=== PATIENT | female | born 1970 | race Caucasian/White ===

== ENCOUNTER 2020-06-03 06:09 | Inpatient (IN) | payer OTHER, SELFPAY ==
[2020-06-03] VITALS (7 sets, daily range): BP systolic 111–158; BP diastolic 67–105; PULSE 82–102; RESP 16–25; TEMP 36.1–36.6; O2SAT 90–94; BMI 58.1
--- NOTE | ~2020-06-03 | XR_ITS ---
EXAMINATION: XR chest 1V portable DATE: 06/04/2020 12:19 INDICATION: Hypoxia. TECHNIQUE: A single frontal view of the chest was obtained. COMPARISON: Chest 2 views 07/15/2018, CT abdomen and pelvis 06/03/2020 FINDINGS: There is mild atelectasis in the lower lung zones. No pleural effusion or pneumothorax. Car diomegaly is noted. IMPRESSION: 1. Mild atelectasis in the lower lung zones. 2. Cardiomegaly. Reviewed, dictated and finalized at location A. UME DIRECTOR
--- NOTE | ~2020-06-03 | US_ITS ---
EXAMINATION: US pelvic complete w TV DATE: 06/05/2020 16:12 INDICATION: Left adnexal mass. TECHNIQUE: Multiple transabdominal and transvaginal sonographic images of the pelvis were obtained. COMPARISON: CT abdomen and pelvis 06/03/2020, 03/25 FINDINGS: TRANSABDOMINAL ULTRASOUND: The uterus measures 10.7 x 6.0 x 6.9 cm. There is no free fluid in the pelvis. TRANSVAGINAL ULTRASOUND: The endometrial complex is not well visualized. The ovaries are not visualized. IMPRESSION: 1. Ovaries not visualized. Pelvis MRI without and with contrast is recommended to evaluate the left a dnexal mass seen by CT. Reviewed, dictated and finalized at location A. REFRIGERATION ENGINEER IMPRESSION: 1. Ovaries not visualized. Pelvis MRI without and with contrast is recommended to evaluate the left adnexal mass seen by CT.
--- NOTE | ~2020-06-03 | CT_ITS ---
EXAMINATION: CT abdomen pelvis w con DATE: 06/03/2020 08:45 INDICATION: Abdominal pain, nausea, vomiting TECHNIQUE: Computed tomography (CT) of the abdomen and pelvis was performed with 100 cc Omnipaque 350 intravenous contrast. Automated exposure control and iterative reconstruction technique were employe d. Exam dose: 1529.87 mGy-cm total exam DLP. COMPARISON: 03/2017 CT abdomen pelvis FINDINGS: Minimal infiltrate or atelectasis at the lung bases. Cardiomegaly. No pericardial or pleural effusion. Small sliding hiatal hernia. Multiple probable filling defects in the dependent aspect of the gallbladder suggest cholelithiasis. No pericholecystic fluid or stranding. No hepatic or splenic mass lesion is evident. No pancreatic mass lesion is evident but there is patchy soft tissue and/or fluid attenuation in the abdomen and a relatively large area around the pancreas, with thickening and/or fluid at the anterior pararenal and lateroconal fascia. Findings suggest pancreatitis. Clinical correlation is advised. Normal adrenal glands. No renal mass lesion is evident. No urinary tract calculus or hydroureteroneph rosis is detected. The urinary bladder is relatively evacuated, essentially unremarkable. Normal caliber of the abdominal aorta. No intraperitoneal or retroperitoneal mass lesion or adenopath y. Up to 5.3 cm lobular low-attenuation mass in the left adnexal area, with attenuation of approximately 24 Hounsfield units. This previously measured up to 4.46 cm on 03/2017. Consider pelvic ultrasound c orrelation. The uterus measures approximately 12.2 cm height, up to 8.1 cm anteroposterior dimension. Mild colonic diverticulosis; no CT evidence of diverticulitis. Normal appendix. No bowel obstruction, bowel wall thickening, pneumatosis or intraperitoneal free air. There is edema of the abdominal wall. Small fat-containing umbilical hernia. IMPRESSION: Cardiomegaly Small sliding hiatal hernia Suggestion of cholelithiasis; consider gallbladder ultrasound for more definitive determination There is a broad area of patchy soft tissue and/or fluid attenuation around the pancreas suggesting p ancreatitis 5.3 cm lobular low-attenuation left adnexal lesion; consider sonographic correlation Uterine enlargement Mild colonic diverticulosis Reviewed, dictated and finalized at Location A. Reviewed, dictated and finalized at location A. RITY INTERN IMPRESSION: Cardiomegaly Small sliding hiatal hernia Suggestion of cholelithiasis; consider gallbladder ultrasound for more definiti ve determination There is a broad area of patchy soft tissue and/or fluid attenuation around the pancreas suggesting pancreatitis 5.3 cm lobular low-attenuation left adnexal lesion; consider sonographic correl ation Uterine enlargement Mild colonic diverticulosis
--- NOTE | ~2020-06-03 | XR_ITS ---
XR chest 1V portable DATE: 06/05/2020 13:16 INDICATION: Respiratory failure. Hypoxia. TECHNIQUE: Portable AP chest on 05/28/2020 at 1317 hours COMPARISON: 06/04/2020 portable AP chest at 1206 hours FINDINGS: There is cardiomegaly. Borderline pulmonary vascular congestion. There is minimal if any pleural effusion. There are patchy infiltrates or atelectasis in the lower lung zones. Diffuse osteopenia. IMPRESSION: Cardiomegaly, borderline pulmonary vascularity Patchy infiltrate or atelectasis in the lower lung zones Little interval change since 06/04/2020 Reviewed, dictated and finalized at location A. RATORY EQUIPMENT CLEANER
--- NOTE | ~2020-06-03 | US_ITS ---
EXAMINATION: US right upper quadrant DATE: 06/05/2020 16:14 INDICATION: Acute pancreatitis. Abnormal liver function tests. TECHNIQUE: Multiple grayscale and Doppler ultrasound images of the abdomen were obtained. COMPARISON: MRCP 06/05/2020 FINDINGS: The visualized portions of the head of the pancreas are normal. The liver is normal without focal lesion. There is normal flow in main portal vein. The gallbladder is normal in size and contai ns gallstones. Gallbladder wall thickening is noted. There was a positive sonographic De La Cruz sign. Th e common duct is normal and measures 5 mm. IMPRESSION: 1. Cholelithiasis. The gallbladder wall thickening and positive sonographic De La Cruz sign may be second kelechi to acute cholecystitis and/or pancreatitis. Reviewed, dictated and finalized at location A. SIZE MACHINE OPERATOR IMPRESSION: 1. Cholelithiasis. The gallbladder wall thickening and positive sonographic Mur phy sign may be secondary to acute cholecystitis and/or pancreatitis.
--- NOTE | ~2020-06-03 | MR_ITS ---
EXAMINATION: MR MRCP wo/w con/w 3D wo ind DATE: 06/05/2020 15:39 INDICATION: Pancreatitis. Jaundice. Abdominal pain. TECHNIQUE: Magnetic resonance imaging (MRI) of the abdomen was performed without and with 20 mL Multi Soila intravenous contrast. Sequences included coronal T2-weighted FS FSE, coronal T2-weighted FSE, a xial T1-weighted LAVA, coronal FS FIESTA, axial dual-echo T1-weighted SPGR, coronal lava-FLEX, sagitt al T2-weighted FSE, axial T2-weighted FSE, and axial DWI. Thick-slab T2-weighted FSE images were obta ined for magnetic resonance cholangiopancreatography (MRCP). Maximum intensity projection 3-D reconst ructions of the volumetric data were created by the technologist. Postcontrast sequences included cor onal LAVA-flex and time course of axial T1-weighted LAVA. COMPARISON: Ultrasound 06/05/2020, CT abdomen and pelvis 06/03/2020, 03/12/17 FINDINGS: ABDOMEN MRI: Cardiomegaly is noted. No pericardial effusion. The liver is normal. There are gallstone s in the gallbladder, which is normal in size. There is chronic mild splenomegaly measuring 15.9 cm, likely secondary to obesity. There is edema around the pancreas, consistent with acute interstitial p ancreatitis. The adrenal glands and kidneys are normal. There are no dilated loops of bowel. There is a small volume of ascites. Body wall edema is noted. ABDOMEN MRCP: The common duct is normal and measures 5 mm. No choledocholithiasis. IMPRESSION: 1. Acute interstitial pancreatitis. 2. Cholelithiasis. 3. Small volume of ascites. Reviewed, dictated and finalized at location A. H HAND MACHINE
--- NOTE | ~2020-06-03 | MR_ITS ---
EXAMINATION: MR pelvis wo/w con DATE: 06/06/2020 10:13 INDICATION: Left adnexal mass. TECHNIQUE: Magnetic resonance imaging (MRI) of the pelvis was performed without and with 20 mL MultiH ance intravenous contrast. Sequences included coronal and axial T2-weighted FS FSE, axial T1-weighted FS FSE, axial LAVA, coronal FS FIESTA, coronal LAVA-flex, axial T2-weighted FSE, axial dual-echo T1- weighted FSPGR, axial FS FIESTA, axial DWI, and small [id number] sagittal, coronal, and axial T2-w eighted FSE. Postcontrast sequences included coronal LAVA-flex and a time course of axial LAVA. COMPARISON: Pelvis ultrasound 05/28/2020, CT abdomen and pelvis 06/03/2020, 03/12/17 FINDINGS: There are nabothian cysts in the cervix. There are multiple ill-defined fibroids in uterus measuring up to 2.7 cm. There is a 1.9 cm submucosal fibroid in the uterus. The endometrial complex measures 13 mm, which is normal before menopause. There is a 6.0 cm cystic mass with enhancing 12 mm mural nodul e in left ovary. There is diverticulosis of the colon without evidence of diverticulitis. There is tr donna pelvic ascites. There are no pathologically enlarged lymph nodes. IMPRESSION: 1. 6.0 cm cystic mass with enhancing 12 mm mural nodule in left ovary suspicious for neoplasm. Resect ion is recommended. 2. Uterine fibroids. Reviewed, dictated and finalized at location A. DULING ANALYST IMPRESSION: 1. 6.0 cm cystic mass with enhancing 12 mm mural nodule in left ovary suspiciou s for neoplasm. Resection is recommended. 2. Uterine fibroids.
--- NOTE | 2020-06-03 06:33 | ED.ABDPAIN ---
HPI - Abdominal Pain General Chief Complaint: Abdominal Pain <Alessio Pérez MD - Last Filed: 06/03/20 07:01> Stated Complaint: abd pain <Alessio Pérez MD - Last Filed: 06/03/20 07:01> Time Seen by Provider: 06/03/20 06:36 <Alessio Pérez MD - Last Filed: 06/03/20 07:01> History of Present Illness HPI narrative: Patient is a 50-year-old female presents the emergency department with chief complaint of abdominal pain. Patient reports the pain began yesterday states that it is cramping throughout her entire abdomen states that it feels full and as though it is distended. states it is more in the upper parts of her abdomen. Patient states that she had a small bowel movement yesterday but feels as though she needs to have a large bowel movement. Patient reports has had some nausea with this denies fever reports her surgical history for her abdomen is that she has had a . Patient denies appendectomy denies cholecystectomy. Patient states the pain is worse with movement and is not improved by anything. <Alessio Pérez MD - Last Filed: 06/03/20 07:01> Related Data Allergies/Adverse Reactions: Allergies Allergy/AdvReac Type Severity Reaction Status Date / Time No Known Allergies Allergy Verified 07/15/18 11:48 <Alessio Pérez MD - Last Filed: 06/03/20 07:01> Review of Systems Review of Systems: Narrative: CONSTITUTIONAL: Denies fever, chills, or sweats. EYES: Denies visual changes, redness, or discharge. ENT: Denies rhinorrhea, congestion, sore throat, or otalgia. CARDIOVASCULAR: Denies chest pain, palpitations, or edema. RESPIRATORY: Denies cough or dyspnea. GASTROINTESTINAL: Denies abdominal pain, nausea, vomiting, or diarrhea. GENITOURINARY: Denies dysuria or hematuria. SKIN: Denies rash or itching. MUSCULOSKELETAL: Denies back pain, joint pain, or myalgia. NEUROLOGIC: Denies headache, numbness, or weakness. PSYCHIATRIC: Denies anxiety or depression. A 10 system review of systems was completed on the patient and is negative except for what is stated in the HPI. Nursing and ancillary documentation was reviewed. <Alessio Pérez MD - Last Filed: 06/03/20 07:01> PMFSH Comments Past medical history significant for hyperglycemia Surgical history is significant for Patient denies illicit drug use <Alessio Pérez MD - Last Filed: 06/03/20 07:01> Exam Narrative: Exam Narrative: GENERAL: Well-appearing, well-nourished, and in no acute distress. HEAD: Normocephalic, atraumatic. EYES: PERRLA and EOMI. ENT: Nares clear, no rhinorrhea or epistaxis. Mucous membranes moist. NECK: Supple. CHEST: Clear to auscultation. No respiratory distress. HEART: Regular rate and rhythm. No murmur heard. Normal peripheral pulses. ABDOMEN: Soft, diffuse mild tenderness, nondistended, normal active bowel sounds. EXTREMITIES: Normal range of motion. No edema. SKIN: Warm, dry, no rash. NEURO: No focal deficits. Alert and oriented x3. PSYCH: Normal mood and affect. <Alessio Pérez MD - Last Filed: 06/03/20 07:01> Course Course Emergency Course: Patient informed of results. Admit to hospitalist service. Contacted general surgery who recommends ultrasound tomorrow and then GI consultation. <Rcoco Ortega MD - Last Filed: 06/03/20 10:18> Vital Signs Vital signs: Vital Signs Temperature 97.8 F 06/03/20 06:10 Pulse Rate 82 06/03/20 06:10 Respiratory Rate 06/03/20 06:10 Blood Pressure 158/105 H 06/03/20 06:10 Pulse Oximetry 90 06/03/20 06:10 Temperature 97.8 F 06/03/20 06:10 Pulse Rate 82 06/03/20 06:10 Respiratory Rate 20 06/03/20 06:10 Blood Pressure 158/105 H 06/03/20 06:10 Pulse Oximetry 90 06/03/20 06:10 <Alessio Pérez MD - Last Filed: 06/03/20 07:01> Vital Signs Temperature 97.8 F 06/03/20 06:10 Pulse Rate 82 06/03/20
[2020-06-03] MEDS: MORPHINE SULFATE (*CRX) 4 MG/ML INJ IV PUSH ×4 (06:44→15:37)
[2020-06-03] MEDS: ONDANSETRON INJ 4 MG/2 ML VIAL IV PUSH (06:44)
[2020-06-03] MEDS: SODIUM CHLORIDE 0.9% IV 1,000 ML 999 ML IV CONT (06:45)
[2020-06-03 07:20] LABS: Basophils Percent Auto 0.2 % (0.2-1.2); Eosinophils Absolute Auto 0.2 K/mm3 (0-0.3); Eosinophils Percent Auto 1.6 % (0-4.4); Hematocrit 45.7 % (37.0-47.0); Hemoglobin 13.2 g/dL (12.0-15.0); Immature Granulocyte Percent A 0.7 % (0-0.5); Lymphocytes Absolute Auto 1.03 K/mm3 (0.9-3.2); Lymphocytes Percent Auto 7.3 % (18.3-44.2); Mean Corpuscular HGB Conc 28.9 g/dl (32-36); Mean Corpuscular Hemoglobin 22.4 pg (26-34); Mean Corpuscular Volume 77.5 fl (80-100); Mean Platelet Volume 9.4 fl (7.4-10.4); Monocytes Absolute Auto 1.2 K/mm3 (0.1-0.6); Monocytes Percent Auto 8.2 % (2.6-8.5); Neutrophils Absolute Auto 11.6 K/mm3 (1.3-6.7); Platelet Count Result 308 k/mm3 (150-375); Red Cell Distribution Width 19.4 % (11.5-14.5); White Blood Count 14.1 K/mm3 (4.5-10.0)
--- NOTE | 2020-06-03 07:42 | PC.NURSE ---
Ambulatory to restroom. Refuses to use mask, states I can't breathe with a mask on
[2020-06-03 08:20] LABS: Alanine Aminotransferase 177 U/L (4-35); Alkaline Phosphatase 174 U/L (38-126); Anion Gap 8 mmol/L (8-16); Aspartate Amino Transferase 446 U/L (14-36); Bilirubin,Total 2.4 mg/dL (0.2-1.3); Blood Urea Nitrogen 12 mg/dL (7-17); Calcium 9.1 mg/dL (8.4-10.2); Carbon Dioxide 37 mmol/L (22-30); Chloride 92 mmol/L (98-107); Estimated CRCL calculation 125 ml/min; Estimated Glomerular Filt Rate > 60; Glucose 250 mg/dL (65-105); Potassium 3.9 mmol/L (3.4-5.0); Sodium 137 mmol/L (137-145)
[2020-06-03 08:40] LABS: Lipase 25667 U/L (23-300)
[2020-06-03 08:41] LABS: Add Urine Microscopic? YES; Appearance Urine Clear (Clear); Bacteria Urine Trace /hpf; Bilirubin Urine 1+ (Negative); Blood Urine Negative (Negative); Color Urine Amber (Yellow); Glucose Urine UA Negative (Negative); Hyaline Casts Urine 30-49 /lpf; Ketones Urine Negative (Negative); Leukocyte Esterase Ur Negative LEU/UL (Negative); Mucus Urine Moderate /lpf; Nitrate Urine Negative (Negative); Protein Urine 2+ mg/dL (Negative); RBC Urine 0-2 /hpf (0-2); Specific Grav Ur 1.021 (1.001-1.035); Squamous Epithelial Cell Urine Moderate /hpf (Few)
[2020-06-03] MEDS: SODIUM CHLORIDE 0.9% IV 1,000 ML 175 ML IV CONT ×2 (11:22→16:57)
--- NOTE | 2020-06-03 11:29 | ADMGEN ---
This patient, Iris Prasad, was admitted to Medical Room 251-01. Patient/family oriented to hospital policies and general routines including ID bracelet, bed and alarms, visiting hours, pain management, procedures, bathroom and other care routines, personal items, smoking policy, room service/diet, and visiting hours. Information on how to activate the Rapid Response Team has been discussed. Patient/Family are encouraged to report perceived risks to care and to ask questions if they do not understand what they are told or what they should do.
[2020-06-03 12:19] LABS: Lactic Acid Reflex 1.1 mmol/L (0.7-2.1)
[2020-06-03 13:43] LABS: Hemoglobin A1C 7.4 % (<5.7)
--- NOTE | 2020-06-03 17:00 | PM.IMHP ---
H&P: HPI History of Present Illness Date/Time: 06/03/20 17:00 Chief complaint: Abdominal pain. Narrative: Iris Prasad is a morbidly obese 50-year-old female with asthma who presented to the emergency department earlier today via EMS from home for evaluation of abdominal pain. Upon entering the room, I found the patient was asleep with shallow, sonorous respirations with evidence of apnea. Despite deep sternal rub and other noxious stimuli, she was unable to be aroused and her SpO2 was noted to be 69% on 3 L nasal cannula. Narcan 0.4 mg was given STAT and within a minutes time she began to open her eyes and speak with improvement in her oxygen saturations to the mid 90s. She seemed slightly confused and was still somnolent, and several minutes thereafter she was given another dose of Narcan and she awoke thereafter. A blood gas was drawn at that demonstrated acute respiratory acidosis. With further questioning she does admit that she suspects underlying sleep apnea but she has not yet gotten around to seeing anybody about it. She was able to provide a good history thereafter and reports to me that sometime yesterday evening at around 20:00 she developed fairly sudden onset of severe sharp and stabbing pain diffusely throughout her upper abdomen, radiating to the middle part of her back. Associated symptoms include nausea and vomiting. She has had similar symptoms in the past, though not nearly as severe. After trading stories with her daughter, she surmised that it was perhaps her gallbladder causing the pain though she has never been officially diagnosed with gallbladder disease. CT of the abdomen and pelvis today showed multiple findings, and probable pancreatitis which is likely the etiology of her symptoms. LFTs were also elevated with findings suggestive of cholelithiasis on imaging however that cannot be definitively determined on this study. She has not had fever, chills, or sweats. She has not had diarrhea and reports a normal bowel movement yesterday. No history of GERD, peptic ulcers, or pancreatitis. She denies significant alcohol use. Review of Systems Review of Systems: Narrative: 12 systems were reviewed with pertinent positives and negatives as per HPI. No fever, chills, or sweats. No recent cold or flu symptoms. She denies sick contacts and known exposure to those positive for COVID-19. As per HPI believes that she likely has sleep apnea with reports of snoring, PND, and daytime somnolence. She has no known history of cardiac disease. Cardiomegaly has been noted on her imaging today and she notes having an echocardiogram and maybe even a stress test in [place] in winter 2018 and everything was fine. No chest pain. She takes furosemide p.r.n. for lower extremity edema. She does have mild dyspnea on exertion which is chronic. She has never been diagnosed with diabetes but will occasionally check her sugar at home when her checks his, and she has noted glucoses in the low 200s on occasion. No blurry vision, polydipsia, or polyuria. No neuropathy symptoms. No dysuria. She still menstruates, and reports longstanding history of heavy cycles, passing lots of clots on her heaviest days. Last menstrual period was at the beginning of May 2020. It is not sound as though she has seen a weight training instructor for quite some time but has have a history of right ovarian cyst. She has no knowledge of a left adnexal mass. Weight has remained stable. Except as documented, all other systems were reviewed and are negative. [facility] Past Medical History Medical History (Updated 06/03/20 @ 18:16 by Zehra Hairston PA-C) Asthma Morbid obesity Type 2 diabetes mellitus (~06/03/20) Hemoglobin A1c was 7.4% on 06/03/2020. Surgical History Surgical History (Updated 06/03/20 @ 14:57 by Zehra Hairston PA-C) History of ankle surgery (~2001) Right ankle ORIF with subsequent hardware removal. History of section (~1987) History of tonsillect
--- NOTE | 2020-06-03 17:10 | PC.NURSE ---
ELIZABETH Joseph at bedside and requesting assistance from staff. Upon arrival to room, patient unresponsive, pin point pupils, oxygen saturation 70-80%, unresponsive to sternal rubs. Zehra still at bedside and received orders for 0.4mg IVP Narcan X1, stat ABG's. After receiving Narcan X1, patient slightly more arousable, saturation increased to 94% on 3L NC, able to cooperate and answer some questions, still groggy. Also received orders to discontinue IVP Morphine Q2H PRN. Respiratory at bedside now to draw ABG's @ 1725.
[2020-06-03] MEDS: NALOXONE HCL 0.4 MG/ML VIAL IV PUSH ×2 (17:30→17:34)
[2020-06-03 17:36] LABS: Alveolar/Arterial O2 Gradient 38.9 mmHg; Base Excess ABG -0.3 mEq/l (+/-2.0); Carboxyhemoglobin 1.6 % THb (0-2.0); Fractional Inspired Oxygen 32 %; Methemoglobin ABG 0.4 %THb (0-1.5); Oxygen Content ABG 18.9 %vol (16.0-22.0); Oxygen Saturation ABG 93.5 % (95.0-100.0); Oxyhemoglobin 92.6 % THb (90.0-100.0); PO2 ABG 87.2 mmHg (80.0-100.0); PO2 FiO2 Ratio Arterial Blood 2.72 %; Reduced Hemoglobin 5.4 %THb (0-5.0); Total Hemoglobin 14.5 g/dL (12.0-18.0)
[2020-06-03 17:37] LABS: Device NASAL CANNULA; PCO2 ABG 87.2 mmHg (35.0-45.0); Site Drawn LEFT BRACHIAL; pH ABG 7.169 (7.350-7.450)
[2020-06-03 18:38] LABS: Alveolar/Arterial O2 Gradient 71.4 mmHg; Base Excess ABG 0.4 mEq/l (+/-2.0); Carboxyhemoglobin 1.4 % THb (0-2.0); Fractional Inspired Oxygen 32 %; HCO3 ABG 30.1 mEq/l (22.0-26.0); Methemoglobin ABG 0.4 %THb (0-1.5); Oxygen Content ABG 17.4 %vol (16.0-22.0); Oxygen Saturation ABG 90.2 % (95.0-100.0); Oxyhemoglobin 89.4 % THb (90.0-100.0); PO2 ABG 70.4 mmHg (80.0-100.0); Reduced Hemoglobin 8.8 %THb (0-5.0); Total Hemoglobin 13.8 g/dL (12.0-18.0)
[2020-06-03 18:39] LABS: Device NASAL CANNULA; Modified Allen's Test Pass; PCO2 ABG 73.8 mmHg (35.0-45.0); Site Drawn RIGHT RADIAL; pH ABG 7.228 (7.350-7.450)
[2020-06-03 21:37] LABS: Glucose Point of Care 206 (65-105)
--- NOTE | 2020-06-03 23:36 | PCRCNOTE ---
Apnea Link held due to patient wearing bipap acutely
[2020-06-04] VITALS (22 sets, daily range): BP systolic 120–142; BP diastolic 64–87; PULSE 76–98; RESP 18–30; TEMP 35.8–36.9; O2SAT 91–99
[2020-06-04 00:03] LABS: Alveolar/Arterial O2 Gradient 117.8 mmHg; Base Excess ABG 1.7 mEq/l (+/-2.0); Carboxyhemoglobin 1.3 % THb (0-2.0); Fractional Inspired Oxygen 40 %; HCO3 ABG 32.7 mEq/l (22.0-26.0); Methemoglobin ABG 0.4 %THb (0-1.5); Oxygen Content ABG 16.9 %vol (16.0-22.0); Oxyhemoglobin 88.1 % THb (90.0-100.0); PO2 ABG 66.2 mmHg (80.0-100.0); PO2 FiO2 Ratio Arterial Blood 1.65 %; Reduced Hemoglobin 10.2 %THb (0-5.0); Total Hemoglobin 13.6 g/dL (12.0-18.0)
[2020-06-04 00:06] LABS: Oxygen Saturation ABG 86.9 % (95.0-100.0); pH ABG 7.188 (7.350-7.450)
[2020-06-04 00:07] LABS: Device BIPAP; Expiratory Pressure 6 cmH2O; Inspiratory Pressure 16 cmH2O; Modified Allen's Test Pass; Site Drawn LEFT RADIAL
--- NOTE | 2020-06-04 01:47 | PC.NURSE ---
This patient, Iris Prasad, was transferred to [[facility] [id number] ] on 06/04/20 at 0151. Personal belongings sent with patient. Report given to [Brittany Mcgowan ]. Appropriate documentation sent with patient.
--- NOTE | 2020-06-04 02:10 | PC.NURSE ---
This patient, Iris Prasad, was received from [[id number] ] on 06/04/20 at 0135. Patient/family oriented to unit policies and routines
[2020-06-04] MEDS: SODIUM CHLORIDE 0.9% IV 1,000 ML 175 ML IV CONT ×2 (03:11→10:35)
[2020-06-04 03:59] LABS: Alveolar/Arterial O2 Gradient 133.6 mmHg; Base Excess ABG 2.6 mEq/l (+/-2.0); Fractional Inspired Oxygen 40 %; Oxygen Content ABG 16.6 %vol (16.0-22.0); Oxygen Saturation ABG 88.3 % (95.0-100.0); Oxyhemoglobin 89.1 % THb (90.0-100.0); PO2 ABG 64.9 mmHg (80.0-100.0); PO2 FiO2 Ratio Arterial Blood 1.62 %; Total Hemoglobin 13.2 g/dL (12.0-18.0)
[2020-06-04 04:01] LABS: Device BIPAP; Modified Allen's Test Pass; PCO2 ABG 75.4 mmHg (35.0-45.0); Site Drawn LEFT RADIAL; pH ABG 7.246 (7.350-7.450)
[2020-06-04 04:02] LABS: Expiratory Pressure 10 cmH2O; Inspiratory Pressure 20 cmH2O
[2020-06-04 04:54] LABS: Basophils Percent Auto 0.2 % (0.2-1.2); Eosinophils Absolute Auto 0.1 K/mm3 (0-0.3); Eosinophils Percent Auto 1.1 % (0-4.4); Hematocrit 43.7 % (37.0-47.0); Immature Granulocyte Absolute 0.13 K/mm3 (0.00-0.031); Lymphocytes Absolute Auto 0.68 K/mm3 (0.9-3.2); Lymphocytes Percent Auto 5.5 % (18.3-44.2); Mean Corpuscular HGB Conc 27.5 g/dl (32-36); Mean Corpuscular Hemoglobin 22.6 pg (26-34); Mean Corpuscular Volume 82.1 fl (80-100); Mean Platelet Volume 9.8 fl (7.4-10.4); Monocytes Absolute Auto 0.9 K/mm3 (0.1-0.6); Monocytes Percent Auto 6.8 % (2.6-8.5); Neutrophils Absolute Auto 10.6 K/mm3 (1.3-6.7); Neutrophils Percent Auto 85.4 % (45.5-73.1); Nucleated Red Blood Cells Perc 0.2 % (0.0-0.2); Platelet Count Result 263 k/mm3 (150-375); Red Blood Count 5.32 M/mm3 (4.2-5.4); Red Cell Distribution Width 19.4 % (11.5-14.5); White Blood Count 12.4 K/mm3 (4.5-10.0)
[2020-06-04 05:12] LABS: Alanine Aminotransferase 260 U/L (4-35); Albumin Level 3.6 g/dL (3.5-5.1); Alkaline Phosphatase 229 U/L (38-126); Anion Gap 6 mmol/L (8-16); Aspartate Amino Transferase 364 U/L (14-36); Bilirubin,Total 4.6 mg/dL (0.2-1.3); Blood Urea Nitrogen 9 mg/dL (7-17); Calcium 8.1 mg/dL (8.4-10.2); Carbon Dioxide 36 mmol/L (22-30); Chloride 98 mmol/L (98-107); Estimated CRCL calculation 123 ml/min; Estimated Glomerular Filt Rate > 60; Glucose 173 mg/dL (65-105); Phosphorus 4.2 mg/dL (2.5-4.5); Potassium 4.2 mmol/L (3.4-5.0); Sodium 140 mmol/L (137-145)
[2020-06-04 09:35] LABS: Glucose Point of Care 177 (65-105)
[2020-06-04 10:08] LABS: Alveolar/Arterial O2 Gradient 107.7 mmHg; Base Excess ABG 2.3 mEq/l (+/-2.0); Carboxyhemoglobin 1.7 % THb (0-2.0); Fractional Inspired Oxygen 36 %; HCO3 ABG 30.7 mEq/l (22.0-26.0); Methemoglobin ABG 0.3 %THb (0-1.5); Oxygen Content ABG 16.8 %vol (16.0-22.0); Oxygen Saturation ABG 91.8 % (95.0-100.0); Oxyhemoglobin 92.2 % THb (90.0-100.0); PO2 ABG 71.4 mmHg (80.0-100.0); PO2 FiO2 Ratio Arterial Blood 1.98 %; Reduced Hemoglobin 5.8 %THb (0-5.0); Total Hemoglobin 12.9 g/dL (12.0-18.0)
[2020-06-04 10:11] LABS: Device NASAL CANNULA; Modified Allen's Test Pass; PCO2 ABG 66.9 mmHg (35.0-45.0); Site Drawn RIGHT RADIAL
[2020-06-04] MEDS: PERFLUTREN LIPID MICROSPHERES 1.5 ML VIAL DILUTED TO 10 ML TOTAL VOLUME (10:33)
--- NOTE | 2020-06-04 10:33 | PM.IMPN ---
Progress Note: A&P Assessment and Plan (1) Acute respiratory failure with hypoxia and hypercapnia: Code(s): J96.01 - Acute respiratory failure with hypoxia; J96.02 - Acute respiratory failure with hypercapnia Status: Acute Assessment and Plan: 06/03 patient was found lethargic and an ABG was done which showed hypoxia and hypercapnia -patient's mentation status improved with Narcan x2 -she was placed on BiPAP and her hypercapnia and pH has improved but are still critical -I spoke with the nurse and we are going to continue BiPAP for now and recheck ABG later. -she likely has a chronic component of hypercapnia but pH abnormality shows a acute component as well. Suspect obesity hypoventilation syndrome and sleep apnea. bicarb elevated -check chest x-ray at this time (2) Acute pancreatitis: Code(s): K85.90 - Acute pancreatitis without necrosis or infection, unspecified Status: Acute Assessment and Plan: Lipase 25,667 on admission -patient's symptoms consistent with pancreatitis -CT shows likely pancreatitis -liver function tests have improved except for bili which has increased -once her respiratory status is stable, she will need a right upper quadrant ultrasound and MRCP -GI consulted -will consult surgery if in fact she is found to have choledocholithiasis or evidence of gallstones (3) Transaminitis: Code(s): R74.01 - Elevation of levels of liver transaminase levels Status: Acute Assessment and Plan: Likely due to above, will trend (4) Cardiomegaly: Code(s): I51.7 - Cardiomegaly Status: Acute Assessment and Plan: Echo pending (5) Adnexal mass: Code(s): N94.89 - Other specified conditions associated with female genital organs and menstrual cycle Status: Acute Assessment and Plan: Ultrasound ordered but patient has respiratory failure at that time and this will be deferred until she is more stable (6) Type 2 diabetes mellitus: Onset Date: ~06/03/20 Code(s): E11.9 - Type 2 diabetes mellitus without complications Status: Acute Assessment and Plan: Last glucose 177 -patient is currently NPO -continue sliding scale insulin (7) Suspected sleep apnea: Code(s): R29.818 - Other symptoms and signs involving the nervous system Status: Acute Assessment and Plan: Will order apnea link once off BiPAP and acute respiratory failure has improved (8) Asthma: Code(s): J45.909 - Unspecified asthma, uncomplicated Status: Acute Assessment and Plan: P.r.n. albuterol. No wheezing today (9) Morbid obesity: Code(s): E66.01 - Morbid (severe) obesity due to excess calories Status: Acute Assessment and Plan: Will benefit from lifestyle change and possibly weight loss surgery Time Spent With Patient Time with patient: 25 - 35 minutes Subjective Date/time seen: 06/04/20 10:33 Interval history: Pt is a 50-year-old female here for acute respiratory failure and pancreatitis. Patient was seen today and states her pain is much better than when he came in. She still having pain in her epigastric and right upper quadrant but if she does not move it is pretty well controlled. It hurts more if she moves or eat anything. She denies shortness of breath, chest pain, fevers, chills, vomiting but has had some nausea. She thinks her legs are little bit more swollen than they usually are. She denies hallucinations. She has passed gas but not had a bowel movement Review of Systems Review of Systems: All systems reviewed & are unremarkable except as noted in HPI and below Exam Narrative: Exam Narrative: General: Morbidly obese patient resting comfortably in bed in no acute distress HEENT: normocephalic Neck: supple Neuro: Alert and oriented x4 CV:RRR telemetry reviewed with normal sinus rhythm at 86. Resp: Decreased breath s
[2020-06-04 12:23] LABS: Alveolar/Arterial O2 Gradient 126.4 mmHg; Base Excess ABG 3.5 mEq/l (+/-2.0); Fractional Inspired Oxygen 40 %; HCO3 ABG 32.1 mEq/l (22.0-26.0); Oxygen Content ABG 16.6 %vol (16.0-22.0); Oxygen Saturation ABG 93.5 % (95.0-100.0); Oxyhemoglobin 93.5 % THb (90.0-100.0); PO2 ABG 78.2 mmHg (80.0-100.0); PO2 FiO2 Ratio Arterial Blood 1.95 %; Total Hemoglobin 12.6 g/dL (12.0-18.0)
[2020-06-04 12:25] LABS: Device NON-INVASIVE VENT; Modified Allen's Test Pass; PCO2 ABG 70.1 mmHg (35.0-45.0); Site Drawn RIGHT RADIAL; pH ABG 7.279 (7.350-7.450)
[2020-06-04 12:26] LABS: Non-Invasive Expiratory Pressure 10 CMH2O; Non-Invasive Inspiratory Pressure 20 CMH2O; Non-Invasive Vent Rate 20 /MIN
--- NOTE | 2020-06-04 13:24 | ECHO_ITS ---
Patient Info Name: Iris rPasad Age: 50 years : 1970 Gender: Female Ht: 64 in Wt: 338 lbs BSA: 2.73 m2 HR: 88 bpm BP: 140 / 64 mmHg Heart Rhythm: Sinus Rhythm Technical Quality: Fair Exam Date: 06/04/2020 10:07 AM Exam Location: [facility] Patient Status: Inpatient Admit Date: 06/03/2020 Staff Ordering Physician: Zehra Hairston PA-C Addiction Psychiatrist: Anurag Ludwig RDCS Attending Provider: Rosalia Molina PA-C Referring Physician: Yovanny ABERNATHY; Exam Type: CA echo dop color flow w con Study Info Indications I51.7 - Cardiomegaly Complete two-dimensional, color flow and Doppler transthoracic echocardiogram is performed with contrast to opacify the left ventricle and to improve the deliniation of the left ventricle endocardial borders. Contrast/Agitated Saline Contrast/Ag. Saline: Definity Amount: 3.00 ml Administered By: Maegan Matta RN Existing IV Access: Yes History/Risk Factors Cardiomegaly; dyspnea, SOB, HTN, DM2, acute respiratory failure. Summary 1. Technically difficult exam because of patient obesity. 2. Definity contrast injected to improve visualization of the left ventricle. 3. Normal left ventricular systolic function and size. 4. Diastolic noncompliance grade 1. 5. No significant valvular lesions identified. Left Ventricle Left ventricular chamber dimension is normal. Left ventricular systolic function is normal, estimated at 60-65%. The left ventricular diastolic function is grade I diastolic dysfunction. Right Ventricle Right ventricular chamber dimension is not well visualized. Left Atria Left atrial chamber dimension is mildly enlarged. Right Atria Right atrial chamber dimension is normal. Aortic Valve The aortic valve is normal. Pulmonic Valve The pulmonic valve is not well visualized. Mitral Valve The mitral valve has normal leaflets. Tricuspid Valve The tricuspid valve leaflets are normal. Pericardium/Pleural The pericardium appears normal. Aorta The aortic root size at the sinus of Valsalva is normal. Left Ventricular Outflow Tract Name Value Normal LVOT 2D LVOT Diameter 1.98 cm LVOT Doppler LVOT Peak Gradient 8 mmHg LVOT Mean Gradient 4 mmHg LVOT VTI 24.83 cm LVOT VTI/AV VTI Ratio 0.76 LVOT Stroke Volume 76.80 ml LVOT CO 6.82 l/min LVOT CI 2.49 L/min/m2 Mitral Valve Name Value Normal MV Doppler MV Decel [place] 364.77 cm/s2 MV PHT 0 s MV Area (PHT) 2.99 cm2 4.00-5.00 MV Diastolic Function
[2020-06-04] MEDS: IPRATROPIUM BR 0.02% INH SOLN 0.5 MG/2.5 ML VIAL INHALATION (15:08)
[2020-06-04] MEDS: ALBUTEROL SULFATE NEB 2.5 MG/0.5 ML INH INHALATION (15:09)
[2020-06-04 15:17] LABS: Glucose Point of Care 161 (65-105)
[2020-06-04 18:26] LABS: Alveolar/Arterial O2 Gradient 130.5 mmHg; Base Excess ABG 5.8 mEq/l (+/-2.0); Fractional Inspired Oxygen 40 %; HCO3 ABG 34.4 mEq/l (22.0-26.0); Oxygen Content ABG 16.6 %vol (16.0-22.0); Oxygen Saturation ABG 92.4 % (95.0-100.0); Oxyhemoglobin 92.1 % THb (90.0-100.0); PO2 ABG 72.4 mmHg (80.0-100.0); PO2 FiO2 Ratio Arterial Blood 1.81 %; Total Hemoglobin 12.8 g/dL (12.0-18.0)
[2020-06-04 18:26] LABS: Glucose Point of Care 136 (65-105)
[2020-06-04 18:28] LABS: Device NON-INVASIVE VENT; Modified Allen's Test Pass; PCO2 ABG 71.6 mmHg (35.0-45.0); Site Drawn LEFT RADIAL
[2020-06-04 18:29] LABS: Non-Invasive Expiratory Pressure 8 CMH2O; Non-Invasive Inspiratory Pressure 20 CMH2O; Non-Invasive Vent Rate 20 /MIN
--- NOTE | 2020-06-04 18:57 | CONS_ITS ---
DATE OF CONSULTATION: 06/04/2020 HISTORY OF PRESENT ILLNESS: A 50-year-old female with history of obesity, asthma, type 2 diabetes, , tonsillectomy, ankle surgery, who presents with epigastric pain. I am now asked to provide GI evaluation at the request of the hospitalist service for pancreatitis. The patient's primary care provider is Dr. Devin Ricardo. No primary major gifts officer. On 06/02/2020 the patient began having back pain that radiated to the epigastric area. The pain was severe and sharp. It was associated with nausea and vomiting, but no coffee-ground or hematemesis. The patient has never had pain like this before. She denies heartburn, trouble swallowing, loss of appetite or weight. In general, diarrhea or constipation, hematochezia, melena, fever, jaundice, scleral icterus, dark urine, light stools, itching, hot or cold intolerance, chest pain, shortness of breath at rest, hematuria, dysuria, new cough or visual changes, easy bruising, tingling of the skin, bone pain or tremors. No endocarditis risk factors. ALLERGIES: NO KNOWN DRUG ALLERGIES. MEDICATIONS: Include albuterol, Lasix, potassium. SOCIAL HISTORY: Nonsmoker, nondrinker. FAMILY HISTORY: Father with colon cancer, recently diagnosed. The patient has never had colonoscopy. The patient's daughter recently had a cholecystectomy. PHYSICAL EXAMINATION: GENERAL: Obese female, lying in bed on BiPAP. Otherwise, she has no lower extremity edema, jaundice, spider angioma, palmar erythema. HEENT: Skull is normocephalic, atraumatic. Pupils nonicteric. Oropharynx clear. NECK: Supple without thyromegaly. LUNGS: Clear to auscultation. HEART: Rate and rhythm regular. S1, S2 normal. ABDOMEN: Normoactive bowel sounds. Soft, nontender, nonrigid, nondistended without hepatosplenomegaly or masses. RECTAL: Deferred. NEURO: Conscious and alert x3. LABORATORY STUDIES: Today, hemoglobin 12, hematocrit 44, white count of 12, MCV 82. T. bilirubin 4.6, alkaline phosphatase 229, AST 364, ALT is 260. Blood gas is pH 7.28, pCO2 67, PO2 71. On 06/03, hematocrit 46, MCV 48, T. bilirubin 2.4, alkaline phosphatase 174, AST 446, ALT is 177, lipase is 25,667. Hemoglobin A1c 7.4. IMAGING PROCEDURE: CT scan of the abdomen and pelvis with contrast shows hiatal hernia, colonic diverticulosis. Likely gallstones and sludge. Changes consistent with pancreatitis. No reports of biliary dilatation. 5 cm left adnexal mass. ASSESSMENT AND PLAN: 1. Epigastric pain with nausea and vomiting as well as abnormal LFTs and abnormal imaging of the biliary tract all consistent with acute pancreatitis, likely due to gallstones. Less likely due to medication such as Lasix. We will check a fasting triglyceride tomorrow. I discussed the case with Dr. Mercado. It appears that ultrasound and MRCP are ordered, but patient cannot get MRCP while she is on BiPAP. I have discussed with MRI, who will follow up closely with the patient and nursing staff to get this done as soon as possible. The patient does not appear to have a common duct stone. Would proceed with cholecystectomy when pancreatitis is more resolved. Her pancreatitis and overall medical situation will resolve. 2. Microcytosis. It appears patient has been on iron in the past. We will check anemia lab evaluation. 3. Family history of colon cancer. At some point, consider high risk screening colonoscopy due to family history. This can be done as an outpatient once stable. 4. Abnormal imaging digestive with hiatal hernia and diverticulosis of the colon. No evidence of diverticulitis. We will observe. Thank you for allowing me to share in the care of this patient. I have discussed the case with Dr. Mercado who will see the patient in the morning,
[2020-06-04 21:46] LABS: NT Pro B Type Natriuretic Pept 993 PG/ML (5-100)
[2020-06-05] VITALS (15 sets, daily range): BP systolic 115–133; BP diastolic 61–78; PULSE 75–87; RESP 20–32; TEMP 35.9–36.7; O2SAT 95–99
[2020-06-05 00:36] LABS: Glucose Point of Care 147 (65-105)
--- NOTE | 2020-06-05 01:15 | PCRCNOTE ---
Window of time for administration has passed. See next scheduled administration.
[2020-06-05] MEDS: SODIUM CHLORIDE 0.9% IV 1,000 ML 175 ML IV CONT (01:59)
[2020-06-05] MEDS: ALBUTEROL SULFATE NEB 2.5 MG/0.5 ML INH INHALATION ×4 (03:55→20:27)
[2020-06-05] MEDS: IPRATROPIUM BR 0.02% INH SOLN 0.5 MG/2.5 ML VIAL INHALATION ×3 (03:55→20:27)
[2020-06-05 04:47] LABS: Hemoglobin 11.2 g/dL (12.0-15.0); Mean Corpuscular Hemoglobin 22.9 pg (26-34); Mean Corpuscular Volume 81.6 fl (80-100); Mean Platelet Volume 9.6 fl (7.4-10.4); Platelet Count Result 228 k/mm3 (150-375); Red Cell Distribution Width 18.7 % (11.5-14.5); White Blood Count 12.8 K/mm3 (4.5-10.0)
[2020-06-05 05:04] LABS: Alanine Aminotransferase 173 U/L (4-35); Albumin Level 3.2 g/dL (3.5-5.1); Alkaline Phosphatase 200 U/L (38-126); Anion Gap 3 mmol/L (8-16); Aspartate Amino Transferase 128 U/L (14-36); Bilirubin,Total 1.6 mg/dL (0.2-1.3); Blood Urea Nitrogen 7 mg/dL (7-17); Calcium 8.1 mg/dL (8.4-10.2); Carbon Dioxide 36 mmol/L (22-30); Chloride 100 mmol/L (98-107); Estimated CRCL calculation 170 ml/min; Estimated Glomerular Filt Rate > 60; Glucose 134 mg/dL (65-105); Lipase 337 U/L (23-300); Potassium 3.9 mmol/L (3.4-5.0); Sodium 139 mmol/L (137-145)
[2020-06-05 06:58] LABS: Glucose Point of Care 103 (65-105)
[2020-06-05 06:58] LABS: Base Excess ABG 5.4 mEq/l (+/-2.0); Carboxyhemoglobin 1.2 % THb (0-2.0); Fractional Inspired Oxygen 40 %; HCO3 ABG 34.8 mEq/l (22.0-26.0); Methemoglobin ABG 0.3 %THb (0-1.5); Oxygen Content ABG 16.2 %vol (16.0-22.0); Oxygen Saturation ABG 93.3 % (95.0-100.0); Oxyhemoglobin 93.2 % THb (90.0-100.0); PO2 ABG 78.9 mmHg (80.0-100.0); PO2 FiO2 Ratio Arterial Blood 1.97 %; Reduced Hemoglobin 5.3 %THb (0-5.0); Total Hemoglobin 12.3 g/dL (12.0-18.0)
[2020-06-05 07:00] LABS: PCO2 ABG 78.5 mmHg (35.0-45.0); pH ABG 7.264 (7.350-7.450)
[2020-06-05 07:01] LABS: Device NON-INVASIVE VENT; Modified Allen's Test Pass; Site Drawn RIGHT RADIAL
[2020-06-05 07:02] LABS: Non-Invasive Expiratory Pressure 8 CMH2O; Non-Invasive Inspiratory Pressure 20 CMH2O; Non-Invasive Vent Rate 20 /MIN
--- NOTE | 2020-06-05 07:25 | PCRCNOTE ---
Apnea link not done due to patient needing to be on bipap overnight. Will attempt when possible.
--- NOTE | 2020-06-05 09:09 | WPDGIPROGNO ---
Progress Note: A&P Additional Plan GI Esdras 05 Jun 2020 Abdominal pain mostly resolved. No N/V. Feels constipated but passing flatus. VSS soft/NT Hct 40. TBili 1.6, A/P 200, AST 128, ALT 173. Lipase 337 On 06/03, hematocrit 46, MCV 48, T. bilirubin 2.4, alkaline phosphatase 174, AST 446, ALT is 177, lipase is 25,667. Hemoglobin A1c 7.4. IMAGING PROCEDURE: CT scan of the abdomen and pelvis with contrast shows hiatal hernia, colonic diverticulosis. Likely gallstones and sludge. Changes consistent with pancreatitis. No reports of biliary dilatation. 5 cm left adnexal mass. ASSESSMENT AND PLAN: A. Epigastric pain with nausea and vomiting, abnormal LFTs and abnormal imaging-biliary: - Consistent with acute pancreatitis, likely due to gallstones - Less likely due to medication such as Lasix - Check fasting triglyceride - Ultrasound and MRCP are ordered - Surgical consult pending - Hopefully, no ERCP needed; the patient does not appear to have a common duct stone - Continue NPO and supportive care - Proceed with cholecystectomy when pancreatitis is resolved per Surgery - Laxative B. Microcytosis. It appears patient has been on iron in the past. We will check anemia lab evaluation. C. Family history of colon cancer. At some point, consider high risk screening colonoscopy due to family history. This can be done as an outpatient once stable. D. Abnormal imaging digestive with hiatal hernia and diverticulosis of the colon. No evidence of diverticulitis. We will observe. ELSI ZELAYA M.D. [phone] Subjective Date/time seen: 06/05/20 09:09 Objective Data Vital Signs Vital Signs: Vital Signs - 24 hr 06/04/20 10:00 06/04/20 12:00 06/04/20 12:10 Temperature 36.9 C Pulse Rate 87 94 84 Respiratory Rate 22 H 30 H Blood Pressure 135/69 Pulse Oximetry 96 96 06/04/20 14:00 06/04/20 15:10 06/04/20 15:13 Temperature Pulse Rate 84 98 98 Respiratory Rate 24 H 24 H Blood Pressure Pulse Oximetry 99 06/04/20 15:19 06/04/20 16:00 06/04/20 17:45 Temperature 36.8 C Pulse Rate 76 86 79 Respiratory Rate 22 H 18 Blood Pressure 139/74 Pulse Oximetry 96 97 06/04/20 18:00 06/04/20 20:00 06/04/20 22:00 Temperature 36.4 C L Pulse Rate 77 86 79 Respiratory Rate 19 Blood Pressure 142/78 H Pulse Oximetry 95 06/04/20 23:50 06/05/20 00:00 06/05/20 02:00 Temperature 36.4 C L Pulse Rate 88 84 87 Respiratory Rate 26 H 24 H Blood Pressure 127/76 Pulse Oximetry 98 97 06/05/20 03:56 06/05/20 04:00 06/05/20 04:08 Temperature 35.9 C L Pulse Rate 87 87 82 Respiratory Rate 26 H 20 27 H Blood Pressure 133/78 Pulse Oximetry 96 99 06/05/20 06:00 06/05/20 08:00 Temperature Pulse Rate 87 79 Respiratory Rate Blood Pressure Pulse Oximetry Intake/Output Intake/Output: Intake & Output 06/02/20 06/03/20 06/04/20 06/05/20 23:59 23:59 23:59 23:59 Intake Total 1999 2970 853 Output Total 150 700 1 Balance 1850 2270 852 Meds/Results Medications: Active Medications Generic Name Dose Route Start Last Admin Trade Name Freq PRN Reason Stop Dose Admin Albuterol 2.5 mg 06/04/20 14:15 06/05/20 03:55 Albuterol Sulfate Neb 2.5 Mg/0.5 Ml Inh INHALATION 2.5 mg Q6HRT LEONARDO Administration Albuterol 2 puff 06/04/20 20:31 Albuterol Sulfate (*Sp) Aerosol 1 Puff INHALATION QIDRT PRN Shortness Of Breath Dextrose 12.5 gm 06/03/20 18:36 Dextrose 50% 25 Gm/50 Ml Syringe IV PUSH PRN PRN Hypoglycemia Protocol Glucagon 1 mg 06/03/20 18:36 Glucagon For Inj 1 Mg Vial IM PRN PRN Hypoglycemia Protocol Glucose 15 gm 06/03/20 18:36 Glucose Oral Gel 15 Gm Of Glucse In 37.5 Gm Tube PO PRN PRN Hypoglycemia Protocol Sodium Chloride 1,000 mls @ 175 mls/hr 06/03/20 10:15 06/05/20 04:34 Normal Saline Iv IV CONT 175 mls/hr .[id number] LEONARDO Infusion Dextrose 1,000 mls @
--- NOTE | 2020-06-05 11:50 | PM.IMPN ---
Progress Note: A&P Assessment and Plan (1) Acute respiratory failure with hypoxia and hypercapnia: Code(s): J96.01 - Acute respiratory failure with hypoxia; J96.02 - Acute respiratory failure with hypercapnia Status: Acute Assessment and Plan: 06/03 patient was found lethargic and an ABG was done which showed hypoxia and hypercapnia -patient's mentation status improved with Narcan x2 -she was been on Bipap since and pH and Co2 wax and wanes and is still in critical range -Will start solumedrol 40mg BID -Adjust bipap settings to 22/8 with Fio2 30%, spoke with respiratory -repeat abg in 4 hours -she likely has a chronic component of hypercapnia but pH abnormality shows a acute component as well. Suspect obesity hypoventilation syndrome and sleep apnea. bicarb elevated -CXR reviewed, showing mild atelectasis -Pulmology consult (2) Acute pancreatitis: Code(s): K85.90 - Acute pancreatitis without necrosis or infection, unspecified Status: Acute Assessment and Plan: Lipase 25,667 on admission now almost normal -patient's symptoms consistent with pancreatitis -CT shows likely pancreatitis -liver function tests have improved -once her respiratory status is stable, she will need a right upper quadrant ultrasound and MRCP -GI consulted -will consult surgery if in fact she is found to have choledocholithiasis or evidence of gallstones (3) Transaminitis: Code(s): R74.01 - Elevation of levels of liver transaminase levels Status: Acute Assessment and Plan: Likely due to above, will trend (4) Cardiomegaly: Code(s): I51.7 - Cardiomegaly Status: Acute Assessment and Plan: Diastolic dysfunction noted on echo -Euvolemic at this time (5) Adnexal mass: Code(s): N94.89 - Other specified conditions associated with female genital organs and menstrual cycle Status: Acute Assessment and Plan: Ultrasound ordered but patient has respiratory failure at that time and this will be deferred until she is more stable (6) Type 2 diabetes mellitus: Onset Date: ~06/03/20 Code(s): E11.9 - Type 2 diabetes mellitus without complications Status: Acute Assessment and Plan: Last glucose 103 -patient is currently NPO -continue sliding scale insulin (7) Suspected sleep apnea: Code(s): R29.818 - Other symptoms and signs involving the nervous system Status: Acute Assessment and Plan: Will order apnea link once off BiPAP and acute respiratory failure has improved (8) Asthma: Code(s): J45.909 - Unspecified asthma, uncomplicated Status: Acute Assessment and Plan: P.r.n. albuterol. No wheezing today (9) Morbid obesity: Code(s): E66.01 - Morbid (severe) obesity due to excess calories Status: Acute Assessment and Plan: Will benefit from lifestyle change and possibly weight loss surgery Subjective Date/time seen: 06/05/20 11:50 Interval history: Pt is a 50-year-old female here for acute respiratory failure and pancreatitis. Patient was seen today and states her pain is much better than when he came in but she has been unable to eat anything. She still having pain in her epigastric and right upper quadrant. She denies shortness of breath, chest pain, fevers, chills, vomiting but has had some nausea. She denies hallucinations. She has passed gas but no BM Exam Narrative: Exam Narrative: General: Morbidly obese patient resting comfortably in bed in no acute distress HEENT: normocephalic Neck: supple Neuro: Alert and oriented x4 CV:RRR telemetry reviewed with normal sinus rhythm at 78 Resp: Decreased breath sounds bilaterally on bipap 20/8. Decreased breath sounds. Abd: Soft, non distended. Pain to palpation to the right upper quadrant and epigastric area. Extremities: Nonpitting edema to both lower extremities, no erythema, warmth, or
--- NOTE | 2020-06-05 12:48 | PM.CNPUL ---
Assessment and Plan Assessment and plan (1) Acute respiratory failure with hypoxia and hypercapnia: Code(s): J96.01 - Acute respiratory failure with hypoxia; J96.02 - Acute respiratory failure with hypercapnia Status: Acute Assessment and Plan: Likely multifactorial: VARINDER/OHS, uncontrolled Asthma. - change BIPAP to 20/4, backup rate of 16 and titrate FiO2 for sats of 88-92% and QHS and while napping - nasal cannula during the day to keep sats 88-92%. (2) Asthma: Qualifiers: Asthma severity: unspecified severity Asthma persistence: persistent Asthma complication type: with acute exacerbation Qualified Code(s): J45.901 - Unspecified asthma with (acute) exacerbation Code(s): J45.909 - Unspecified asthma, uncomplicated Status: Acute Assessment and Plan: - agree with solumedrol 40 mg IV bid for 5 days - albuterol 2.5 mg Q6H nebulized and Pulmicort 0.5 mg bid nebulized will be added (3) Acute pancreatitis: Code(s): K85.90 - Acute pancreatitis without necrosis or infection, unspecified Status: Acute Assessment and Plan: Would be in favor of advancing to clear liquids if OK by GI since IV was stopped in light of CHF (4) Suspected sleep apnea: Code(s): R29.818 - Other symptoms and signs involving the nervous system Status: Acute (5) CHF (congestive heart failure): Code(s): I50.9 - Heart failure, unspecified Status: Acute Assessment and Plan: Clinical parameters suggestive of some component of diastolic CHF is present. Likely has has significant secondary pulmonary hypertension as well. Echo was not reliable due to technical difficulties with image acquisition. - will discontinue IVF - Lasix 20 mg IV daily - monitor and replace electrolytes - monitor and treat HTN History of Present Illness History of Present Illness Consult date: 06/05/20 Chief complaint: Pancreatitis, Transminitis Narrative: 50 y/o morbidly obese female presents with abdominal pain and and acute panreatitis with lipase starting at > 25,000 and now down to 300's after 48 hours. This is very indicative of gallstone pancreatitis. She drinks only two alcoholic beverages/week. She has history of recurrent chest tightness, wheezing and episodes of bronchitis which she takes PRN albuterol for. She also says she's had LE edema for a few years that improves with use of lasix. She smoked from the age of [age] periodically but nothing significant. CT chest on admission showed no significant PE or pneumonia but did show evidence of air trapping and ground glass opacities indicative of pulmonary edema or inflammation. She denied loss of taste or smell, fever, chills night sweats, n/v/diarrhea, runny nose or congestion. She was is alert and awake and we had a full conversation off BIPAP with her sats at 84-86%. ABG this morning showed slightly worsening acute on chronic hypercapnia. Echo was a technically difficult study and was not helpful. Review of Systems Review of Systems: All systems reviewed & are unremarkable except as noted in HPI and below PMFSH Past Medical History Medical History (Updated 06/05/20 @ 13:03 by Augusta Sanders MD) Asthma Morbid obesity Type 2 diabetes mellitus (~06/03/20) Hemoglobin A1c was 7.4% on 06/03/2020. Surgical History Surgical History (Updated 06/03/20 @ 14:57 by Zehra Hairston PA-C) History of ankle surgery (~2001) Right ankle ORIF with subsequent hardware removal. History of section (~1987) History of tonsillectomy (~1977) Family History Family History Other Diabetes mellitus Heart disease Social History Social History (Updated 06/03/20 @ 18:11 by Zehra Hairston PA-C) Social History: The patient lives in [place] with her spouse and their 2 adult sons. 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
[2020-06-05 14:07] LABS: Triglycerides 119 mg/dL (<150)
[2020-06-05 14:18] LABS: Iron 29 ug/dL (37-170)
[2020-06-05 14:25] LABS: Percent Iron Saturation 8 % (20-50)
[2020-06-05 14:28] LABS: Glucose Point of Care 105 (65-105)
[2020-06-05 15:14] LABS: Folic Acid 15.3 ng/mL (2.76->20)
--- NOTE | 2020-06-05 16:31 | PCRCNOTE ---
Window of time for administration has passed. See next scheduled administration.
[2020-06-05 18:49] LABS: Glucose Point of Care 108 (65-105)
[2020-06-05] MEDS: BUDESONIDE RESPULE NEB 0.5 MG/2 ML AMP INHALATION (20:27)
[2020-06-05] MEDS: SENNA/DOCUSATE SODIUM TABLET 1 TAB PO (21:20)
[2020-06-05] MEDS: methylPREDNISolone SOD SUCC 40 MG VIAL IV PUSH (23:36)
[2020-06-06] VITALS (16 sets, daily range): BP systolic 116–154; BP diastolic 54–91; PULSE 70–83; RESP 19–30; TEMP 36.1–36.8; O2SAT 92–100
[2020-06-06 00:11] LABS: Glucose Point of Care 111 (65-105)
[2020-06-06 05:46] LABS: Alveolar/Arterial O2 Gradient 158.5 mmHg; Base Excess ABG 3.2 mEq/l (+/-2.0); Fractional Inspired Oxygen 40 %; HCO3 ABG 31.1 mEq/l (22.0-26.0); Oxygen Content ABG 14.5 %vol (16.0-22.0); Oxyhemoglobin 83.7 % THb (90.0-100.0); PO2 ABG 53.1 mmHg (80.0-100.0); PO2 FiO2 Ratio Arterial Blood 1.33 %; Total Hemoglobin 12.3 g/dL (12.0-18.0); pH ABG 7.304 (7.350-7.450)
[2020-06-06 05:48] LABS: Device NON-INVASIVE VENT; Oxygen Saturation ABG 83.2 % (95.0-100.0); Site Drawn RIGHT BRACHIAL
[2020-06-06 05:49] LABS: Non-Invasive Expiratory Pressure 4 CMH2O; Non-Invasive Inspiratory Pressure 20 CMH2O; Non-Invasive Vent Rate 16 /MIN
[2020-06-06 06:02] LABS: Hematocrit 41.2 % (37.0-47.0); Hemoglobin 11.4 g/dL (12.0-15.0); Mean Corpuscular HGB Conc 27.7 g/dl (32-36); Mean Corpuscular Hemoglobin 22.7 pg (26-34); Mean Corpuscular Volume 81.9 fl (80-100); Platelet Count Result 276 k/mm3 (150-375); Red Blood Count 5.03 M/mm3 (4.2-5.4); Red Cell Distribution Width 18.8 % (11.5-14.5); White Blood Count 13.8 K/mm3 (4.5-10.0)
[2020-06-06 06:48] LABS: Alanine Aminotransferase 137 U/L (4-35); Albumin Level 3.6 g/dL (3.5-5.1); Alkaline Phosphatase 216 U/L (38-126); Anion Gap 5 mmol/L (8-16); Aspartate Amino Transferase 77 U/L (14-36); Bilirubin,Total 1.3 mg/dL (0.2-1.3); Blood Urea Nitrogen 9 mg/dL (7-17); CRP 16.3 mg/dL (<1.0); Calcium 8.6 mg/dL (8.4-10.2); Carbon Dioxide 34 mmol/L (22-30); Chloride 97 mmol/L (98-107); Estimated CRCL calculation 170 ml/min; Estimated Glomerular Filt Rate > 60; Glucose 119 mg/dL (65-105); Potassium 4.4 mmol/L (3.4-5.0); Sodium 136 mmol/L (137-145)
[2020-06-06] MEDS: methylPREDNISolone SOD SUCC 40 MG VIAL IV PUSH ×2 (09:05→20:31)
[2020-06-06 11:24] LABS: Glucose Point of Care 173 (65-105)
--- NOTE | 2020-06-06 11:46 | PM.IMPN ---
Progress Note: A&P Assessment and Plan (1) Acute respiratory failure with hypoxia and hypercapnia: Code(s): J96.01 - Acute respiratory failure with hypoxia; J96.02 - Acute respiratory failure with hypercapnia Status: Acute Assessment and Plan: 06/03 patient was found lethargic and an ABG was done which showed hypoxia and hypercapnia -patient's mentation status improved with Narcan x2 -she was been on Bipap since and pH and Co2 wax and wanes and is still in critical range but improved with bipap adjustments -Continue solumedrol 40mg BID -Continue o2 but wean for sats >90. -she likely has a chronic component of hypercapnia but pH abnormality shows an acute component as well. Suspect obesity hypoventilation syndrome and sleep apnea. bicarb elevated -CXR reviewed, showing mild atelectasis -Pulmology consult (2) Acute pancreatitis: Code(s): K85.90 - Acute pancreatitis without necrosis or infection, unspecified Status: Acute Assessment and Plan: Lipase 25,667 on admission now almost normal with improved symptoms -patient's symptoms consistent with pancreatitis -CT shows likely pancreatitis -liver function tests have improved -MRCP shows no choledocholithiasis -GI consulted and Sx consulted (3) Transaminitis: Code(s): R74.01 - Elevation of levels of liver transaminase levels Status: Acute Assessment and Plan: Likely due to above, will trend (4) Cardiomegaly: Code(s): I51.7 - Cardiomegaly Status: Acute Assessment and Plan: Diastolic dysfunction noted on echo -Euvolemic at this time (5) Adnexal mass: Code(s): N94.89 - Other specified conditions associated with female genital organs and menstrual cycle Status: Acute Assessment and Plan: Ultrasound done but could not visualize much anatomy -patient has her uterus and ovaries and still menstruates -she sees OBGYN in [place] her last Pap smear was 1 year ago and was normal -MRI of the pelvis pending (6) Type 2 diabetes mellitus: Onset Date: ~06/03/20 Code(s): E11.9 - Type 2 diabetes mellitus without complications Status: Acute Assessment and Plan: Last glucose 173 -clear liquid diet started -continue sliding scale insulin (7) Suspected sleep apnea: Code(s): R29.818 - Other symptoms and signs involving the nervous system Status: Acute Assessment and Plan: Will order apnea link once off BiPAP and acute respiratory failure has improved (8) Asthma: Qualifiers: Asthma severity: unspecified severity Asthma persistence: persistent Asthma complication type: with acute exacerbation Qualified Code(s): J45.901 - Unspecified asthma with (acute) exacerbation Code(s): J45.909 - Unspecified asthma, uncomplicated Status: Acute Assessment and Plan: P.r.n. albuterol. No wheezing today (9) Morbid obesity: Code(s): E66.01 - Morbid (severe) obesity due to excess calories Status: Acute Assessment and Plan: Will benefit from lifestyle change and possibly weight loss surgery Subjective Date/time seen: 06/06/20 11:46 Interval history: Pt is a 50-year-old female here for acute respiratory failure and pancreatitis. Patient was seen today and doing. Her abdominal pain has improved and she plans to try clear liquids today. She denies shortness of breath, chest pain, fevers, chills, nausea, vomiting, or cough. Continues to require oxygen was last year and was normal. She does have her ovaries and still menstruates and has heavy periods. She sees an OBGYN in [facility] but cannot remember who it is. They are located [facility] Exam Narrative: Exam Narrative: General: Morbidly obese patient up in the bathroom giving herself a sponge bath HEENT: normocephalic Neck: supple Neuro: Alert and oriented x4 CV:RRR Resp: Decreased breath sounds with o2 applied Abd:
--- NOTE | 2020-06-06 12:13 | PCRCNOTE ---
Window of time for administration has passed. See next scheduled administration.
--- NOTE | 2020-06-06 12:53 | PC.NURSE ---
This patient, Iris Prasad, was received from IMU on 06/06/20 at 1045. Patient/family oriented to unit policies and routines
[2020-06-06] MEDS: IPRATROPIUM BR 0.02% INH SOLN 0.5 MG/2.5 ML VIAL INHALATION ×2 (14:33→21:32)
[2020-06-06] MEDS: ALBUTEROL SULFATE NEB 2.5 MG/0.5 ML INH INHALATION ×2 (14:33→21:32)
[2020-06-06 16:51] LABS: Glucose Point of Care 216 (65-105)
[2020-06-06] MEDS: INSULIN ASPART (*BKC) 100 UNITS/ML SUB-Q (16:51)
--- NOTE | 2020-06-06 19:19 | PM.PNPUL ---
Progress Note: A&P Assessment and Plan (1) CHF (congestive heart failure): Code(s): I50.9 - Heart failure, unspecified Status: Acute Assessment and Plan: recommend resuming lasix 20 mg PO daily with spironolactone 25 mg daily (2) Acute respiratory failure with hypoxia and hypercapnia: Code(s): J96.01 - Acute respiratory failure with hypoxia; J96.02 - Acute respiratory failure with hypercapnia Status: Acute Assessment and Plan: combination of VARINDER/OHS, Asthma and CHF. Improving (3) Asthma: Qualifiers: Asthma severity: unspecified severity Asthma persistence: persistent Asthma complication type: with acute exacerbation Qualified Code(s): J45.901 - Unspecified asthma with (acute) exacerbation Code(s): J45.909 - Unspecified asthma, uncomplicated Status: Acute Assessment and Plan: Continue duonebs, pulmicort and systemic steroids as prescribed (4) Suspected sleep apnea: Code(s): R29.818 - Other symptoms and signs involving the nervous system Status: Acute Assessment and Plan: Will order outpatient sleep study and f/u with us in clinic (5) Morbid obesity: Code(s): E66.01 - Morbid (severe) obesity due to excess calories Status: Acute (6) Acute pancreatitis: Code(s): K85.90 - Acute pancreatitis without necrosis or infection, unspecified Status: Acute Subjective Date/time seen: 06/06/20 19:19 Interval history: Feeling much better, tolerating oral liquids. Tolerating BIPAP. Will need proper sleep study as outpatient to customize pressures Review of Systems Review of Systems: All systems reviewed & are unremarkable except as noted in HPI and below Exam Const: General: cooperative, healthy appearing, comfortable, no acute distress, well developed, alert, awake and Physically active Nutritional Appearance: obese morbidly obese Orientation/consciousness: oriented to person, oriented to place, oriented to time and patient oriented x3 Limitations: no limitations HENMT: Head: normal to inspection, normocephalic and atraumatic Eyes: General: appearance normal, both eyes and all related structures Neck: Neck: normal visual inspection, trachea midline and supple Resp: Effort & Inspection: normal respiratory effort Auscultation: crackles (bilateral bases R>L ) bilateral, breath sounds absent and diminished lung sounds Cardio: Rate: regular rate Rhythm: regular rhythm Heart sounds: S1 normal heart sound present and S2 normal heart sound present Skin: General skin exam: normal color and no rashes or lesions noted Neuro: General: oriented to person, oriented to place, oriented to time and patient oriented x3 Cognition (Neuro): normal cognition Speech: normal speech Gait exam (Neuro): Normal gait present Extrem: General: normal to inspection, no clubbing, no cyanosis and edema (3+ bilateral pitting edema in LE ) bilateral Psych: Appearance: grossly normal and well kempt Mental Status: mental status grossly normal Objective Data Vital Signs Vital Signs: Vital Signs - 24 hr 06/05/20 20:00 06/05/20 20:30 06/05/20 20:40 Temperature 36.1 C L Pulse Rate 75 77 75 Respiratory Rate 32 H 26 H 30 H Blood Pressure 115/61 Pulse Oximetry 99 95 06/06/20 00:00 06/06/20 04:00 06/06/20 04:40 Temperature 36.8 C 36.4 C Pulse Rate 83 75 71 Respiratory Rate 21 H 30 H 30 H Blood Pressure 116/54 L 122/65 Pulse Oximetry 98 96 92 06/06/20 08:00 06/06/20 11:01 06/06/20 11:59 Temperature 36.2 C L Pulse Rate 79 75 80 Respiratory Rate 20 Blood Pressure 154/91 H Pulse Oximetry 98 99 06/06/20 12:00 06/06/20 14:00 06/06/20 14:34 Temperature 36.1 C L Pulse Rate 75 76 73 Respiratory Rate 20 20 20 Blood Pressure 130/68 Pulse Oximetry 99 99 06/06/20 14:48 06/06/20 16:00 Temperature Pulse Rate 78 79 Respiratory Rate 20 Blood Pressure Pulse Oximetry Intake/Output Intake/Output:
--- NOTE | 2020-06-06 19:43 | WPDGIPROGNO ---
Progress Note: A&P Additional Plan GI Esdras 06 Jun 2020 Abdominal pain resolved. No N/V. + BM. Raji clear VSS soft/NT 06-06-2020: Hct 41. WBC 14. TBili 1.3, A/P 216, AST 77, ALT 137. B12 974, folate 15 06-05-2020: Hct 40. TBili 1.6, A/P 200, AST 128, ALT 173. Lipase 337. TG 119 (N) B12 974, folate 15, ferritin 31, fe 29, tibc 376, %sat 8 On 06/03/2020: hematocrit 46, MCV 48, T. bilirubin 2.4, alkaline phosphatase 174, AST 446, ALT is 177, lipase is 25,667. Hemoglobin A1c 7.4. IMAGING: U/S: GS with GB wall thickening and + sono [place]. MRCP: Pancreatitis. GS. CBD [address] scan of the abdomen and pelvis with contrast shows hiatal hernia, colonic diverticulosis. Likely gallstones and sludge. Changes consistent with pancreatitis. No reports of biliary dilatation. 5 cm left adnexal mass. ASSESSMENT AND PLAN: A. Epigastric pain with nausea and vomiting, abnormal LFTs and abnormal imaging-biliary: - Acute gallstone pancreatitis; resolving - Fasting triglyceride normal - Surgical consult pending; I discussed case with Dr. Mercado again today who will consider CCx when medically stable - No ERCP needed - Advance diet as tolerated - Proceed with cholecystectomy when pancreatitis is resolved per Surgery B. Microcytosis: - It appears patient has been on iron in the past - Anemia lab evaluation suggests mild TORIE; consider endoscopy as OP when stable - po iron as OP C. Family history of colon cancer. At some point, consider high risk screening colonoscopy due to family history. This can be done as an outpatient once stable. D. Abnormal imaging digestive with hiatal hernia and diverticulosis of the colon. No evidence of diverticulitis. We will observe. No further gi recommendations at this time. Dispo per Primary service and Surgery. Patient can follow-up with my office in 6 weeks. ELSI ZELAYA M.D. [phone] Cc: Dr. Ricardo; Dr. Roslyn Mercado Subjective Date/time seen: 06/06/20 19:43 Objective Data Vital Signs Vital Signs: Vital Signs - 24 hr 06/05/20 20:00 06/05/20 20:30 06/05/20 20:40 Temperature 36.1 C L Pulse Rate 75 77 75 Respiratory Rate 32 H 26 H 30 H Blood Pressure 115/61 Pulse Oximetry 99 95 06/06/20 00:00 06/06/20 04:00 06/06/20 04:40 Temperature 36.8 C 36.4 C Pulse Rate 83 75 71 Respiratory Rate 21 H 30 H 30 H Blood Pressure 116/54 L 122/65 Pulse Oximetry 98 96 92 06/06/20 08:00 06/06/20 11:01 06/06/20 11:59 Temperature 36.2 C L Pulse Rate 79 75 80 Respiratory Rate 20 Blood Pressure 154/91 H Pulse Oximetry 98 99 06/06/20 12:00 06/06/20 14:00 06/06/20 14:34 Temperature 36.1 C L Pulse Rate 75 76 73 Respiratory Rate 20 20 20 Blood Pressure 130/68 Pulse Oximetry 99 99 06/06/20 14:48 06/06/20 16:00 Temperature Pulse Rate 78 79 Respiratory Rate 20 Blood Pressure Pulse Oximetry Intake/Output Intake/Output: Intake & Output 06/03/20 06/04/20 06/05/20 06/06/20 23:59 23:59 23:59 23:59 Intake Total 2000 2970 853 1790 Output Total 150 700 651 900 Balance 1850 2270 202 890 Meds/Results Medications: Active Medications Generic Name Dose Route Start Last Admin Trade Name Freq PRN Reason Stop Dose Admin Albuterol 2.5 mg 06/04/20 14:15 06/06/20 14:33 Albuterol Sulfate Neb 2.5 Mg/0.5 Ml Inh INHALATION 2.5 mg Q6HRT [facility] Administration Albuterol 2 puff 06/04/20 20:31 Albuterol Sulfate (*Sp) Aerosol 1 Puff INHALATION QIDRT PRN Shortness Of Breath Budesonide 0.5 mg 06/05/20 12:50 06/06/20 12:12 Budesonide Respule Neb 0.5 Mg/2 Ml Amp INHALATION Not Given Q12HRT [facility] Dextrose 12.5 gm 06/03/20 18:36 Dextrose 50% 25 Gm/50 Ml Syringe IV PUSH PRN PRN Hypoglycemia Protocol Glucagon 1 mg 06/03/20 18:36 Glucagon For Inj 1 Mg Vial IM PRN PRN Hypoglycemia Protocol Glucose 15 gm 06/03/20 18:36 Glucose Oral Gel 15 Gm Of Glucse In 37.5 Gm Tube PO P
[2020-06-06] MEDS: BUDESONIDE RESPULE NEB 0.5 MG/2 ML AMP INHALATION (21:32)
[2020-06-06 23:54] LABS: Glucose Point of Care 178 (65-105)
[2020-06-07] VITALS (10 sets, daily range): BP systolic 133; BP diastolic 69; PULSE 69–93; RESP 20–26; TEMP 36.1; O2SAT 90–100
[2020-06-07] MEDS: ALBUTEROL SULFATE NEB 2.5 MG/0.5 ML INH INHALATION ×2 (01:49→08:02)
[2020-06-07] MEDS: IPRATROPIUM BR 0.02% INH SOLN 0.5 MG/2.5 ML VIAL INHALATION ×2 (01:49→08:02)
[2020-06-07 04:00] LABS: Alveolar/Arterial O2 Gradient 121.6 mmHg; Base Excess ABG 9.1 mEq/l (+/-2.0); Fractional Inspired Oxygen 40 %; HCO3 ABG 36.6 mEq/l (22.0-26.0); Oxygen Content ABG 16.2 %vol (16.0-22.0); Oxygen Saturation ABG 96.3 % (95.0-100.0); Oxyhemoglobin 95.7 % THb (90.0-100.0); PO2 ABG 88.9 mmHg (80.0-100.0); PO2 FiO2 Ratio Arterial Blood 2.22 %; pH ABG 7.368 (7.350-7.450)
[2020-06-07 04:02] LABS: Device NON-INVASIVE VENT; Modified Allen's Test Pass; Non-Invasive Expiratory Pressure 4 CMH2O; Non-Invasive Inspiratory Pressure 20 CMH2O; Non-Invasive Vent Rate 16 /MIN; Site Drawn LEFT RADIAL
[2020-06-07 05:49] LABS: Glucose Point of Care 150 (65-105)
[2020-06-07 06:17] LABS: Basophils Percent Auto 0.3 % (0.2-1.2); Eosinophils Absolute Auto 0.1 K/mm3 (0-0.3); Eosinophils Percent Auto 0.5 % (0-4.4); Hematocrit 42.5 % (37.0-47.0); Hemoglobin 11.6 g/dL (12.0-15.0); Immature Granulocyte Absolute 0.06 K/mm3 (0.00-0.031); Immature Granulocyte Percent A 0.5 % (0-0.5); Lymphocytes Absolute Auto 0.93 K/mm3 (0.9-3.2); Lymphocytes Percent Auto 8.3 % (18.3-44.2); Mean Corpuscular HGB Conc 27.3 g/dl (32-36); Mean Corpuscular Hemoglobin 22.4 pg (26-34); Mean Corpuscular Volume 82.2 fl (80-100); Mean Platelet Volume 10.4 fl (7.4-10.4); Monocytes Percent Auto 8.6 % (2.6-8.5); Neutrophils Absolute Auto 9.1 K/mm3 (1.3-6.7); Neutrophils Percent Auto 81.8 % (45.5-73.1); Platelet Count Result 276 k/mm3 (150-375); Red Blood Count 5.17 M/mm3 (4.2-5.4); Red Cell Distribution Width 19.3 % (11.5-14.5); White Blood Count 11.1 K/mm3 (4.5-10.0)
[2020-06-07 07:35] LABS: Alanine Aminotransferase 99 U/L (4-35); Albumin Level 3.6 g/dL (3.5-5.1); Alkaline Phosphatase 171 U/L (38-126); Anion Gap 6 mmol/L (8-16); Aspartate Amino Transferase 49 U/L (14-36); Bilirubin,Total 0.9 mg/dL (0.2-1.3); Blood Urea Nitrogen 11 mg/dL (7-17); CRP 7.7 mg/dL (<1.0); Calcium 9.1 mg/dL (8.4-10.2); Carbon Dioxide 34 mmol/L (22-30); Chloride 96 mmol/L (98-107); Estimated CRCL calculation 172 ml/min; Estimated Glomerular Filt Rate > 60; Glucose 157 mg/dL (65-105); Lipase 203 U/L (23-300); Sodium 136 mmol/L (137-145)
[2020-06-07] MEDS: BUDESONIDE RESPULE NEB 0.5 MG/2 ML AMP INHALATION (08:02)
[2020-06-07] MEDS: methylPREDNISolone SOD SUCC 40 MG VIAL IV PUSH (09:09)
--- NOTE | 2020-06-07 11:32 | WPDGIPROGNO ---
Progress Note: A&P Assessment and Plan (1) Acute pancreatitis: Code(s): K85.90 - Acute pancreatitis without necrosis or infection, unspecified Status: Acute Assessment and Plan: Clinically pancreatitis improving. Lipase has returned to normal LFTs also improving. Ultrasound and MRCP suggest resolving pancreatitis with cholelithiasis as the etiology. Plan is for surgical consultation for cholecystectomy. (2) Cholelithiasis: Code(s): K80.20 - Calculus of gallbladder without cholecystitis without obstruction Status: Acute (3) Morbid obesity: Code(s): E66.01 - Morbid (severe) obesity due to excess calories Status: Acute (4) Adnexal mass: Code(s): N94.89 - Other specified conditions associated with female genital organs and menstrual cycle Status: Acute Assessment and Plan: Pelvic MRI suggestive of a left ovarian mass. Gynecological follow-up for this strongly advised. Malignancy is suspected by Radiology Service. (5) Family history of malignant neoplasm of colon in relative diagnosed when older than 50 years of age: Code(s): Z80.0 - Family history of malignant neoplasm of digestive organs Status: Acute Assessment and Plan: Patient gives a family history of colon cancer elective colonoscopy as an outpatient at a later date strongly advised. Subjective Date/time seen: 06/07/20 11:32 Patient feeling better today. Reports no significant pain. Review of Systems Review of Systems: All systems reviewed & are unremarkable except as noted in HPI and below Exam Narrative: Exam Narrative: On physical exam vital signs are stable. Lungs are clear. Abdomen bowel sounds are present soft with no masses or organomegaly appreciated. Objective Data Vital Signs Vital Signs: Vital Signs - 24 hr 06/06/20 11:59 06/06/20 12:00 06/06/20 14:00 Temperature 97.0 F L Pulse Rate 80 75 76 Respiratory Rate 20 20 Blood Pressure 130/68 Pulse Oximetry 99 99 06/06/20 14:34 06/06/20 14:48 06/06/20 16:00 Temperature Pulse Rate 73 78 79 Respiratory Rate 20 20 Blood Pressure Pulse Oximetry 06/06/20 20:00 06/06/20 21:34 06/06/20 21:35 Temperature Pulse Rate 75 71 Respiratory Rate 20 Blood Pressure Pulse Oximetry 99 06/06/20 21:48 06/06/20 22:19 06/07/20 00:31 Temperature 97 F L Pulse Rate 71 70 70 Respiratory Rate 20 19 Blood Pressure 137/71 Pulse Oximetry 99 100 06/07/20 01:51 06/07/20 01:54 06/07/20 04:00 Temperature Pulse Rate 93 Respiratory Rate 20 20 Blood Pressure Pulse Oximetry 06/07/20 05:44 06/07/20 08:00 06/07/20 08:02 Temperature 97 F L Pulse Rate 69 81 Respiratory Rate 26 H Blood Pressure 133/69 Pulse Oximetry 100 90 06/07/20 08:04 06/07/20 08:19 Temperature Pulse Rate 72 76 Respiratory Rate 24 H 22 H Blood Pressure Pulse Oximetry Intake/Output Intake/Output: Intake & Output 06/04/20 06/05/20 06/06/20 06/07/20 23:59 23:59 23:59 23:59 Intake Total 2970 853 1790 400 Output Total 700 651 900 Balance 2270 202 890 400 Meds/Results Medications: Active Medications Generic Name Dose Route Start Last Admin Trade Name Freq PRN Reason Stop Dose Admin Albuterol 2.5 mg 06/04/20 14:15 06/07/20 08:02 Albuterol Sulfate Neb 2.5 Mg/0.5 Ml Inh INHALATION 2.5 mg Q6HRT [facility] Administration Albuterol 2 puff 06/04/20 20:31 Albuterol Sulfate (*Sp) Aerosol 1 Puff INHALATION QIDRT PRN Shortness Of Breath Budesonide 0.5 mg 06/05/20 12:50 06/07/20 08:02 Budesonide Respule Neb 0.5 Mg/2 Ml Amp INHALATION 0.5 mg Q12HRT [facility] Administration Dextrose 12.5 gm 06/03/20 18:36 Dextrose 50% 25 Gm/50 Ml Syringe IV PUSH PRN PRN Hypoglycemia Protocol Glucagon 1 mg 06/03/20 18:36 Glucagon For Inj 1 Mg Vial IM PRN PRN Hypoglycemia Protocol Glucose 15 gm 06/03/20 18:36 Glucose O
--- NOTE | 2020-06-07 11:37 | PM.DS ---
DS: Admitting Diagnosis Admitting Diagnosis Admitting Diagnosis: Pancreatitis, Transminitis DS: Discharge Diagnosis Discharge Diagnosis (1) Acute respiratory failure with hypoxia and hypercapnia: Code(s): J96.01 - Acute respiratory failure with hypoxia; J96.02 - Acute respiratory failure with hypercapnia Status: Acute Assessment and Plan: 06/03 patient was found lethargic and an ABG was done which showed hypoxia and hypercapnia -patient's mentation status improved with Narcan x2 -she was been on Bipap since and pH and Co2 wax and wanes and is still in critical range but improved with bipap adjustments -she was on Solu-Medrol during her stay and transition to oral prednisone -she utilized oxygen on admission but was done room air at discharge -patient's gas shows a normal pH with an elevated CO2 which is likely chronic -CXR reviewed, showing mild atelectasis -pulmonology plans to do a sleep study on her and she will likely need a CPAP indefinitely (2) Acute pancreatitis: Code(s): K85.90 - Acute pancreatitis without necrosis or infection, unspecified Status: Acute Assessment and Plan: Lipase 25,667 on admission but normal today -patient is tolerating a diet and ready to go home -patient's symptoms consistent with pancreatitis -CT shows likely pancreatitis -liver function tests have improved -MRCP shows no choledocholithiasis -surgery plans to follow her outpatient for her cholelithiasis (3) Transaminitis: Code(s): R74.01 - Elevation of levels of liver transaminase levels Status: Acute Assessment and Plan: Improving (4) Cardiomegaly: Code(s): I51.7 - Cardiomegaly Status: Acute Assessment and Plan: Diastolic dysfunction noted on echo -Euvolemic at this time (5) Adnexal mass: Code(s): N94.89 - Other specified conditions associated with female genital organs and menstrual cycle Status: Acute Assessment and Plan: The patient states that she has had this for awhile and she follows her OBGYN for it. I stressed the importance of following up with him and maybe comparing the images and talking to him about surgery. She is going to follow up with her OBGYN (6) Type 2 diabetes mellitus: Onset Date: ~06/03/20 Code(s): E11.9 - Type 2 diabetes mellitus without complications Status: Acute Assessment and Plan: Last glucose 150 -A1c 7.4 06/03/20 -patient states that she has been told she has diabetes in the past but wanted to do diet control. She was able to get her A1c down to 6.8 with diet but now it is back up to 7.4. She says when she is at home she takes her 's insulin at times if it is really high and can't get it down . I educated her that she should not take her 's insulin and that she should follow-up with her primary care physician to see if metformin would be appropriate although the patient states she would rather have insulin. (7) Suspected sleep apnea: Code(s): R29.818 - Other symptoms and signs involving the nervous system Status: Acute Assessment and Plan: Sleep study ordered per pulmonology (8) Asthma: Qualifiers: Asthma severity: unspecified severity Asthma persistence: persistent Asthma complication type: with acute exacerbation Qualified Code(s): J45.901 - Unspecified asthma with (acute) exacerbation Code(s): J45.909 - Unspecified asthma, uncomplicated Status: Acute Assessment and Plan: P.r.n. albuterol. No wheezing today (9) Morbid obesity: Code(s): E66.01 - Morbid (severe) obesity due to excess calories Status: Acute Assessment and Plan: Will benefit from lifestyle change and possibly weight loss surgery DS: Summary Hospital Course Reason for hospitalization: Pancreatitis Hospital Course: Patient is a 50-year-old female for abdominal pain or sounds to have galls
--- NOTE | 2020-06-07 12:43 | PM.PNPUL ---
Progress Note: A&P Assessment and Plan (1) CHF (congestive heart failure): Code(s): I50.9 - Heart failure, unspecified Status: Acute Assessment and Plan: recommend resuming lasix 20 mg PO daily with spironolactone 25 mg daily (2) Acute respiratory failure with hypoxia and hypercapnia: Code(s): J96.01 - Acute respiratory failure with hypoxia; J96.02 - Acute respiratory failure with hypercapnia Status: Acute Assessment and Plan: combination of VARINDER/OHS, Asthma and CHF. Improving. All must be treate if she is to avoid further complications. Weight loss is highly recommended (3) Asthma: Qualifiers: Asthma severity: unspecified severity Asthma persistence: persistent Asthma complication type: with acute exacerbation Qualified Code(s): J45.901 - Unspecified asthma with (acute) exacerbation Code(s): J45.909 - Unspecified asthma, uncomplicated Status: Acute Assessment and Plan: Can be discharged home on Symbicort 160/4.5 mcg 2 puffs (4) Suspected sleep apnea: Code(s): R29.818 - Other symptoms and signs involving the nervous system Status: Acute Assessment and Plan: Will order outpatient sleep study and f/u with us in clinic (5) Morbid obesity: Code(s): E66.01 - Morbid (severe) obesity due to excess calories Status: Acute (6) Acute pancreatitis: Code(s): K85.90 - Acute pancreatitis without necrosis or infection, unspecified Status: Acute Subjective Date/time seen: 06/07/20 12:43 Interval history: Feeling better and tolerating PO intake. Being discharged home. I impressed upon her that she needs to take Symbicort 160/4.5 mcg 2 puffs bid via spacer device and get the split night sleep study that I ordered for her as an outpatient but she was not to enthused by either recommendation Review of Systems Review of Systems: All systems reviewed & are unremarkable except as noted in HPI and below Exam Const: General: cooperative, healthy appearing, comfortable, no acute distress, well developed, alert, awake and Physically active Nutritional Appearance: obese morbidly obese Orientation/consciousness: oriented to person, oriented to place, oriented to time and patient oriented x3 Limitations: no limitations HENMT: Head: normal to inspection, normocephalic and atraumatic Eyes: General: appearance normal, both eyes and all related structures Neck: Neck: normal visual inspection, trachea midline and supple Resp: Effort & Inspection: normal respiratory effort Auscultation: crackles (bilateral bases R>L ) bilateral, breath sounds absent and diminished lung sounds Cardio: Rate: regular rate Rhythm: regular rhythm Heart sounds: S1 normal heart sound present and S2 normal heart sound present Skin: General skin exam: normal color and no rashes or lesions noted Neuro: General: oriented to person, oriented to place, oriented to time and patient oriented x3 Cognition (Neuro): normal cognition Speech: normal speech Gait exam (Neuro): Normal gait present Extrem: General: normal to inspection, no clubbing, no cyanosis and edema (3+ bilateral pitting edema in LE ) bilateral Psych: Appearance: grossly normal and well kempt Mental Status: mental status grossly normal Objective Data Vital Signs Vital Signs: Vital Signs - 24 hr 06/06/20 14:00 06/06/20 14:34 06/06/20 14:48 Temperature 36.1 C L Pulse Rate 76 73 78 Respiratory Rate 20 20 20 Blood Pressure 130/68 Pulse Oximetry 99 06/06/20 16:00 06/06/20 20:00 06/06/20 21:34 Temperature Pulse Rate 79 75 71 Respiratory Rate 20 Blood Pressure Pulse Oximetry 06/06/20 21:35 06/06/20 21:48 06/06/20 22:19 Temperature 36.1 C L Pulse Rate 71 70 Respiratory Rate 20 19 Blood Pressure 137/71 Pulse Oximetry 99 99 100 06/07/20 00:31 06/07/20 01:51 06/07/20 01:54 Temperature Pulse Rate 70 Respiratory Rate 20 20 Blood Pressure P
== END 2020-06-07 15:00 | disposition home or self-care (01) | DRG 282 ==
LOC: ANHED 10:18 → ANH2MED 10:47 → ANHIMU 06-04 01:45 → ANH3MED 06-07 02:26 → ANHIMU 06-08 16:49
PROVIDERS: Emergency Medicine; Family Medicine; Internal Medicine Critical Care Medicine; Internal Medicine Gastroenterology; Physician Assistant; Admitting Provider Internal Medicine; Emergency Provider Emergency Medicine; PCP Family Medicine; Visit Provider Internal Medicine
DX: K85.10 Biliary acute pancreatitis without necrosis or infection (principal); J96.01 Acute respiratory failure with hypoxia; J96.02 Acute respiratory failure with hypercapnia; I50.31 Acute diastolic (congestive) heart failure; J45.909 Unspecified asthma, uncomplicated; E66.2 Morbid (severe) obesity with alveolar hypoventilation; Z68.44 Body mass index [BMI] 60.0-69.9, adult; E11.9 Type 2 diabetes mellitus without complications; G47.33 Obstructive sleep apnea (adult) (pediatric); R74.01 Elevation of levels of liver transaminase levels; I51.7 Cardiomegaly; K44.9 Diaphragmatic hernia without obstruction or gangrene; D50.9 Iron deficiency anemia, unspecified; N94.89 Other specified conditions associated with female genital organs and menstrual cycle; K57.30 Diverticulosis of large intestine without perforation or abscess without bleeding; Z87.891 Personal history of nicotine dependence; Z80.0 Family history of malignant neoplasm of digestive organs
CPT/HCPCS: 36415; 36600; 51701; 71045; 72197; 74177; 74183; 76376; 76705; 76830; 76856; 80048; 80053; 80076; 81001; 81025; 82375; 82607; 82728; 82746; 82805; 83036; 83050; 83540; 83550; 83605; 83690; 83735; 83880; 84100; 84443; 84478; 85025; 85027; 86140; 94002; 94003; 94640; 94660; 96361; 96374; 96375; 96376; 99285; A9270; A9577; C8929; G0378; G0379; J1815; J2270; J2310; J2405; J2920; J7030; Q9957; Q9967

== ENCOUNTER 2020-07-10 11:25 | Inpatient (IN) | payer OTHER, SELFPAY ==
[2020-07-10] VITALS (30 sets, daily range): BP systolic 122–138; BP diastolic 51–76; PULSE 70–86; RESP 17–33; TEMP 36.3–37.5; O2SAT 4–100; BMI 53.7
--- NOTE | ~2020-07-10 | XR_ITS ---
EXAMINATION: XR chest 1V portable 07/15/2020 09:01 INDICATION: Shortness of breath. Covid. PROCEDURE: AP portable chest COMPARISON: Comparison to multiple prior studies sequentially, with oldest reviewed study dated 05/10. FINDINGS: The lungs are clear. Cardiomegaly is stable. There are no pleural effusions. There is no p neumothorax suspected. IMPRESSION: 1: NO ACUTE CARDIOPULMONARY DISEASE. Reviewed, dictated and finalized at location A. [employer]ION AIRCRAFT STRUCTURE ASSEMBLER
--- NOTE | ~2020-07-10 | XR_ITS ---
XR chest 1V portable 07/14/2020 08:27 Indication: CovidPneumonia Procedure: AP portable chest Comparison: Comparison to multiple prior studies sequentially, with oldest reviewed study dated 01/2019. Findings: Cardiomegaly. Left perihilar and right basilar infiltrates. Airspace disease has significan tly improved since 07/10/2020. No significant pleural effusion or pneumothorax. Impression: 1: Bilateral airspace disease is improved, consistent with resolving pneumonia. Reviewed, dictated and finalized at location A. LE BOOTH ATTENDANT Impression: 1: Bilateral airspace disease is improved, consistent with resolving pneumonia.
--- NOTE | ~2020-07-10 | XR_ITS ---
EXAMINATION: XR chest 1V portable DATE: 07/10/2020 12:09 INDICATION: Shortness of breath TECHNIQUE: frontal view of the chest was obtained. COMPARISON: Chest radiograph dated 06/05/2020 FINDINGS: Patchy airspace opacities scattered throughout in both lungs relatively sparing the left upper lung z one. No pleural effusion or pneumothorax. Cardiomegaly. IMPRESSION: 1. Patchy airspace opacities throughout both lungs which could be related to multifocal pneumonia inc luding COVID pneumonia or pulmonary edema. 2. Cardiomegaly. Reviewed, dictated and finalized at location A. UNICABLE DISEASE SPECIALIST IMPRESSION: 1. Patchy airspace opacities throughout both lungs which could be related to mu ltifocal pneumonia including COVID pneumonia or pulmonary edema. 2. Cardiomegaly.
--- NOTE | 2020-07-10 11:31 | ECG_ITS ---
Measurements Intervals [place] Rate: 84 P: 51 VT: 145 QRS: 47 QRSD: 96 T: 31 QT: 395 QTc: 469 Interpretive Statements SINUS RHYTHM DELAYED PRECORDIAL R/S TRANSITION BORDERLINE ST-T WAVE ABNORMALITY- ANTERIOR LEADS BASELINE WANDER- V2-V3 BORDERLINE ECG Electronically Signed On 07-10-2020 14:02:05 [employer] by Gorge Manley D.O.
--- NOTE | 2020-07-10 11:51 | PC.NURSE ---
Pt. titrated down to 3L nasal cannula. Pt. saturations 97%
--- NOTE | 2020-07-10 11:53 | ED.SOB ---
HPI - SOB/Dyspnea General Chief Complaint: Shortness of Breath/Dyspnea Stated Complaint: low 02, COVID + Time Seen by Provider: 07/10/20 11:47 History of Present Illness HPI Narrative: 50 yo female w/ h/o angelinaperri, DM brought in by EMS from home for SOB. She reports that she has not been feeling well for several days. She reports cough, congestion, loss of appetite. She had a had a positive COVID test earlier this week. Today she called EMS becuase she was feeling SOB. Found to be veyr hypoxic on RA. She was initially requiring 6 L by IN to get saturation above 90%. Related Data Home Medications Medication Instructions Recorded Confirmed potassium chloride 10 meq PO DAILY 06/03/20 07/10/20 furosemide 40 mg PO BID 07/10/20 07/10/20 Allergies Allergy/AdvReac Type Severity Reaction Status Date / Time No Known Allergies Allergy Verified 06/21/20 09:37 Review of Systems Review of Systems: All systems reviewed & are unremarkable except as noted in HPI and below Constitutional: Constitutional: Reports fatigue and Denies fever(s) Cardiovascular: Cardiovascular: Reports chest pain Respiratory: Respiratory: Reports chest congestion, Reports cough and Reports dyspnea Gastrointestinal: Gastrointestinal: Denies abdominal pain, Reports diarrhea, Reports nausea and Denies vomiting Genitourinary: Genitourinary: Denies dysuria Musculoskeletal: Musculoskeletal: Reports myalgias Neurologic: Denies confusion and Denies dizziness PMF Past Medical History Medical History Asthma Morbid obesity Type 2 diabetes mellitus (~06/03/20) Hemoglobin A1c was 7.4% on 06/03/2020. Surgical History Surgical History History of ankle surgery (~2001) Right ankle ORIF with subsequent hardware removal. History of section (~1987) History of tonsillectomy (~1977) Family History Family History Other Diabetes mellitus Heart disease Social History Social History Social History: The patient lives in [place] with her spouse and their 2 adult sons. 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 No alcohol or illicit substance abuse. She designates her , Salvatore Prasad, as her surrogate decision maker and she wishes to be a full code. Smoking status: Never smoker Alcohol intake: never Drinks per week: 1 Substance use: never Gender identity (if verbalized by the patient): Female Spiritual care concerns: No Exam Const: General: no acute distress and alert Nutritional Appearance: obese morbidly obese Orientation/consciousness: patient oriented x3 HENMT: Head: normal to inspection Neck: Neck: normal visual inspection Resp: Auscultation: crackles bilateral at the base Cardio: Rate: regular rate Rhythm: regular rhythm GI: GI Palp: Yes Soft to palpation and No Tenderness to palpation present (GI) Skin: General skin exam: normal color Neuro: General: patient oriented x3, moves all extremities, no focal motor deficits and CN's II-XI intact bilaterally Speech: normal speech Extrem: General: edema (1+) bilateral Course Vital Signs Vital signs: Vital Signs Temperature 37.5 C 07/10/20 11:26 Pulse Rate 86 07/10/20 11:26 Respiratory Rate 26 H 07/10/20 11:26 Pulse Oximetry 98 07/10/20 11:26 Temperature 37.5 C 07/10/20 11:26 Pulse Rate 73 07/10/20 17:33 Respiratory Rate 20 07/10/20 17:33 Blood Pressure 122/51 L 07/10/20 17:33 Pulse Oximetry 93 07/10/20 17:33 MDM - SOB/Dyspnea Medical Records Attestation: I reviewed the patient's medical records. Lab Data Attestation: I reviewed the patient's lab results. Result diagrams: 07/10/20 11:49 07/10/20 11:49 Labs: Lab Res
[2020-07-10 12:00] LABS: Basophils Percent Auto 0.2 % (0.2-1.2); Eosinophils Percent Auto 0.3 % (0-4.4); Hematocrit 39.6 % (37.0-47.0); Hemoglobin 11.9 g/dL (12.0-15.0); Immature Granulocyte Absolute 0.04 K/mm3 (0.00-0.031); Immature Granulocyte Percent A 0.6 % (0-0.5); Lymphocytes Absolute Auto 0.97 K/mm3 (0.9-3.2); Lymphocytes Percent Auto 15.4 % (18.3-44.2); Mean Corpuscular HGB Conc 30.1 g/dl (32-36); Mean Corpuscular Hemoglobin 22.8 pg (26-34); Mean Platelet Volume 9.9 fl (7.4-10.4); Monocytes Absolute Auto 0.7 K/mm3 (0.1-0.6); Monocytes Percent Auto 11.1 % (2.6-8.5); Neutrophils Absolute Auto 4.6 K/mm3 (1.3-6.7); Neutrophils Percent Auto 72.4 % (45.5-73.1); Nucleated Red Blood Cells Perc 0.3 % (0.0-0.2); Platelet Count Result 234 k/mm3 (150-375); Red Blood Count 5.21 M/mm3 (4.2-5.4); Red Cell Distribution Width 20.2 % (11.5-14.5); White Blood Count 6.3 K/mm3 (4.5-10.0)
[2020-07-10 12:09] LABS: Anion Gap 5 mmol/L (8-16); Blood Urea Nitrogen 9 mg/dL (7-17); Calcium 8.3 mg/dL (8.4-10.2); Carbon Dioxide 35 mmol/L (22-30); Chloride 90 mmol/L (98-107); Estimated CRCL calculation 155 ml/min; Estimated Glomerular Filt Rate > 60; Glucose 122 mg/dL (65-105); Potassium 3.6 mmol/L (3.4-5.0); Sodium 130 mmol/L (137-145)
[2020-07-10 12:17] LABS: Alveolar/Arterial O2 Gradient 103.1 mmHg; Base Excess ABG 4.7 mEq/l (+/-2.0); Fractional Inspired Oxygen 32 %; Oxygen Content ABG 17.1 %vol (16.0-22.0); Oxygen Saturation ABG 94.3 % (95.0-100.0); Oxyhemoglobin 91.8 % THb (90.0-100.0); PCO2 ABG 47.1 mmHg (35.0-45.0); PO2 FiO2 Ratio Arterial Blood 2.19 %; Total Hemoglobin 13.2 g/dL (12.0-18.0); pH ABG 7.422 (7.350-7.450)
[2020-07-10 12:18] LABS: Device NASAL CANNULA; Modified Allen's Test Pass; Site Drawn LEFT RADIAL
--- NOTE | 2020-07-10 13:40 | PC.NURSE ---
renny canales, Cherri, added on BNP [id number]
[2020-07-10 14:21] LABS: NT Pro B Type Natriuretic Pept 848 PG/ML (5-100)
--- NOTE | 2020-07-10 16:07 | PC.NURSE ---
4% pulse ox was entered in error.
--- NOTE | 2020-07-10 17:19 | ADMGEN ---
This patient, Iris Prasad, was admitted to IMU Room 207-01. Patient/family oriented to hospital policies and general routines including ID bracelet, bed and alarms, visiting hours, pain management, procedures, bathroom and other care routines, personal items, smoking policy, room service/diet, and visiting hours. Information on how to activate the Rapid Response Team has been discussed. Patient/Family are encouraged to report perceived risks to care and to ask questions if they do not understand what they are told or what they should do.
[2020-07-10 18:07] LABS: Glucose Point of Care 157 (65-105)
--- NOTE | 2020-07-10 18:30 | PM.IMHP ---
H&P: HPI History of Present Illness Date/Time: 07/10/20 18:30 Chief Complaint: sob Narrative: Iris Prasad is a 50 year old female who has a history of asthma. The patient stated that she was not feeling well since Michaela. Her whole family had been sick. They did gather at Michaela time and she and her dad are both positive for [place] as well as her children. Her mother also tested positive for COVID as well. The patient typically is not on any oxygen at home and has been using her inhalers at home without any relief. She stated that her oxygen level has been in the 60 percentile for the last 2-3 days. The patient got her results back of for her COVID test until yesterday. The patient had fever and chills during Michaela time. The patient was placed on 3 L per nasal cannula at this time. The patient had been admitted here back 12/27/2019 where she had pancreatitis. Is suspected that it was due to her gallstones. She has not been able to follow-up with Dr. dontrell bautista as of yet. And Dr. boucher will not do her surgery on her gallbladder wall she short of breath. I explained to her that she needs to call Dr. bautista and reschedule appointment. She was seeing him for elevated liver enzymes and the pancreatitis. The patient has no nausea vomiting at this time. The patient came to the emergency room due to her hypoxia and dyspnea. The patient initially was requiring 6 L per nasal cannula and was going to be placed on a BiPAP. She was not placed on a BiPAP. 3 L per nasal cannula. She is talking in full sentences. She is not currently in any respiratory distress. IV Decadron in the emergency room and stated that she was starting to feel much better. She had not been started on REMdesivir due to her elevated liver enzymes. Her blood sugar was noted to be 157. Patient is being admitted to inpatient status on the date of service of 07/10/20 Review of Systems Review of Systems: All systems reviewed & are unremarkable except as noted in HPI and below Constitutional: Constitutional: Reports as per HPI and Reports no additional constitutional complaints Eyes: Eyes: Reports as per HPI and Reports no additional eye complaints ENT: Reports system reviewed and no additional complaints, except as documented and Reports Normal hearing present Cardiovascular: Cardiovascular: Reports no additional cardiovascular complaints Respiratory: Respiratory: Reports no additional respiratory complaints and Reports no additional respiratory complaints Gastrointestinal: Gastrointestinal: Reports as per HPI and Reports no additional gastrointestinal complaints Musculoskeletal: Musculoskeletal: Reports no additional musculoskeletal complaints Integumentary/Breasts: Skin/Breast: Reports system reviewed and no additional complaints, except as docu and Reports as per HPI Neurologic: Reports system reviewed and no additional complaints, except as documented, Reports as per HPI and Reports Normal hearing present Psychiatric: Psychiatric: Reports no additional psychiatric complaints and Reports as per HPI Endocrine: Endocrine: Reports no additional endocrine complaints Hematologic/Lymphatic: Hematologic/Lymphatic: Reports no additional hematologic/lymphatic complaints Allergic/Immunologic: Allergic/Immunologic: Reports no additional allergic/immunologic complaints [facility] Past Medical History Medical History (Updated 07/10/20 @ 18:49 by Pao Fritz NP) Asthma Cardiomegaly CHF (congestive heart failure) On 06/04/2020 echo diastolic noncompliance grade 1 Cholelithiasis Morbid obesity Type 2 diabetes mellitus (~06/03/20) Hemoglobin A1c was 7.4% on 06/03/2020. Surgical History Surgical History (Updated 07/10/20 @ 18:49 by Pao Fritz NP) History of ankle surgery (~2001) Right ankle ORIF with subsequent hardware removal. She tells me that she has only had a couple those screws removed and still has a plate in about 9 screws le
[2020-07-10] MEDS: ALBUTEROL SULFATE (*SP) INHALER 1 PUFF (20:28)
[2020-07-10] MEDS: FUROSEMIDE 40 MG TABLET PO (21:17)
[2020-07-10 21:48] LABS: Glucose Point of Care 281 (65-105)
[2020-07-10] MEDS: INSULIN ASPART (*BKC) 100 UNITS/ML SUB-Q (23:09)
[2020-07-11] VITALS (18 sets, daily range): BP systolic 109–146; BP diastolic 57–75; PULSE 60–87; RESP 20–26; TEMP 36.1–36.7; O2SAT 84–96
[2020-07-11 04:44] LABS: Lactic Acid Reflex 0.7 mmol/L (0.7-2.1)
[2020-07-11 04:45] LABS: Alanine Aminotransferase 31 U/L (4-35); Albumin Level 3.7 g/dL (3.5-5.1); Alkaline Phosphatase 99 U/L (38-126); Anion Gap 4 mmol/L (8-16); Aspartate Amino Transferase 47 U/L (14-36); Bilirubin,Total 0.5 mg/dL (0.2-1.3); Blood Urea Nitrogen 9 mg/dL (7-17); Calcium 8.7 mg/dL (8.4-10.2); Carbon Dioxide 39 mmol/L (22-30); Chloride 94 mmol/L (98-107); Estimated CRCL calculation 157 ml/min; Estimated Glomerular Filt Rate > 60; Glucose 225 mg/dL (65-105); Magnesium 2.3 mg/dL (1.6-2.3); Potassium 4.4 mmol/L (3.4-5.0); Sodium 137 mmol/L (137-145)
[2020-07-11 04:46] LABS: Basophils Percent Auto 0.2 % (0.2-1.2); Hematocrit 45.2 % (37.0-47.0); Hemoglobin 13.1 g/dL (12.0-15.0); Immature Granulocyte Percent A 1.9 % (0-0.5); Lymphocytes Percent Auto 9.5 % (18.3-44.2); Mean Corpuscular Volume 79.4 fl (80-100); Mean Platelet Volume 9.5 fl (7.4-10.4); Monocytes Absolute Auto 0.5 K/mm3 (0.1-0.6); Monocytes Percent Auto 8.7 % (2.6-8.5); Neutrophils Absolute Auto 4.2 K/mm3 (1.3-6.7); Neutrophils Percent Auto 79.7 % (45.5-73.1); Platelet Count Result 223 k/mm3 (150-375); Red Blood Count 5.69 M/mm3 (4.2-5.4); Red Cell Distribution Width 20.4 % (11.5-14.5); White Blood Count 5.3 K/mm3 (4.5-10.0)
[2020-07-11 05:20] LABS: Hypochromasia 1+ (NORMAL); Microcytosis 2+ (NORMAL); Platelet Estimate Adequate (Adequate)
[2020-07-11 08:05] LABS: Glucose Point of Care 200 (65-105)
[2020-07-11] MEDS: ENOXAPARIN 40 MG/0.4 ML SYRINGE SUB-Q (09:35)
[2020-07-11] MEDS: POTASSIUM CHLORIDE 10 MEQ TABLET.ER PO (09:36)
[2020-07-11] MEDS: FUROSEMIDE 40 MG TABLET PO ×2 (09:36→16:04)
[2020-07-11 11:28] LABS: Glucose Point of Care 227 (65-105)
[2020-07-11] MEDS: DEXAMETHASONE SOD PHOS INJ 4 MG/ML VIAL 6 MG IV PUSH (12:33)
[2020-07-11] MEDS: INSULIN ASPART (*BKC) 100 UNITS/ML SUB-Q ×2 (12:34→16:03)
[2020-07-11] MEDS: REMDESIVIR 200 MG/NS 250 ML 200 MG/250 ML BAG 250 MG IVPB (15:58)
[2020-07-11 16:08] LABS: Glucose Point of Care 262 (65-105)
--- NOTE | 2020-07-11 17:25 | PC.NURSE ---
This patient, Iris Prasad, was transferred to [facility] on 07/11/20 at 1720. Personal belongings sent with patient. Report given to Danika STRICKLAND. Appropriate documentation sent with patient.
--- NOTE | 2020-07-11 17:55 | PC.NURSE ---
This patient, Iris Prasad, was received from IMU on 07/11/20 at 1755. Patient/family oriented to unit policies and routines. Report received from Jane STRICKLAND.
--- NOTE | 2020-07-11 18:25 | PM.IMPN ---
Progress Note: A&P Assessment and Plan (1) Acute hypoxemic respiratory failure due to COVID-19: Code(s): U07.1 - COVID-19; J96.01 - Acute respiratory failure with hypoxia Status: Acute Assessment and Plan: Day 2 dexamethasone Day 1 remdesivir, azithromycin, ceftriaxone Wean oxygen as tolerated (2) CHF (congestive heart failure): Code(s): I50.9 - Heart failure, unspecified Status: Chronic Assessment and Plan: Clinically stable Continue furosemide (3) Cholelithiasis: Code(s): K80.20 - Calculus of gallbladder without cholecystitis without obstruction Status: Chronic Assessment and Plan: Patient is to follow-up with Dr. boucher once she is off of her oxygen and her breathing is improved. Needs elective cholecystectomy (4) Type 2 diabetes mellitus: Onset Date: ~06/03/20 Code(s): E11.9 - Type 2 diabetes mellitus without complications Status: Acute Assessment and Plan: Accu-Cheks AC and HS. Last A1c was 7.4. Sliding scale insulin (5) Asthma: Qualifiers: Asthma severity: unspecified severity Asthma persistence: persistent Asthma complication type: with acute exacerbation Qualified Code(s): J45.901 - Unspecified asthma with (acute) exacerbation Code(s): J45.909 - Unspecified asthma, uncomplicated Status: Acute Assessment and Plan: continue bronchodilators (6) Suspected sleep apnea: Code(s): R29.818 - Other symptoms and signs involving the nervous system Status: Acute Assessment and Plan: Sleep study ordered as outpatient deferred due to COVID-19 (7) Ovarian mass: Code(s): N83.8 - Other noninflammatory disorders of ovary, fallopian tube and broad ligament Status: Acute (8) Adnexal mass: Code(s): N94.89 - Other specified conditions associated with female genital organs and menstrual cycle Status: Chronic Assessment and Plan: Left (on MRI 05/2020) To f/u as outpatient with WEB ENGINEER Subjective Date/time seen: 07/11/20 18:25 Interval history: Admitted 07/10 after POSITIVE COVID-19 test result received on 07/09. Attended [employer] gathering that included a few ill individuals. Cough intermittently productive of pink sputum. Tired. SOB with exertion. Mild body aches and headache. Intermittent loose stool. No CP. No other GI/ c/o. Review of Systems Review of Systems: All systems reviewed & are unremarkable except as noted in HPI and below Exam Narrative: Exam Narrative: HEENT: EOMI, PERRL, sclerae nonicteric, pharyngeal mucosa pink and intact NECK: No JVD, adenopathy, or thyromegaly CHEST: Bilateral LL fine crackles. NL effort. HEART: NL S1/S2, regular, no murmur ABDOMEN: BS+, soft, nontender, no mass, no bruits EXTREMITIES: No cyanosis, edema, or clubbing NEUROLOGIC: CN intact and symmetric to inspection. MUSCULOSKELETAL: Tone and strength symmetric. PSYCH: Alert. Oriented to person, place, and time. Objective Data Vital Signs Vital Signs: Vital Signs - 24 hr 07/10/20 18:38 07/10/20 20:00 07/10/20 21:30 Temperature 97.3 F L Pulse Rate 78 75 74 Respiratory Rate 22 H 28 H Blood Pressure 127/60 Pulse Oximetry 91 87 L 07/10/20 22:00 07/10/20 23:34 07/11/20 00:00 Temperature 97.8 F Pulse Rate 74 80 87 Respiratory Rate 26 H Blood Pressure 128/54 L Pulse Oximetry 97 07/11/20 00:45 07/11/20 02:00 07/11/20 03:50 Temperature 97.4 F L Pulse Rate 80 79 77 Respiratory Rate 26 H 26 H Blood Pressure 109/65 Pulse Oximetry 84 L 96 07/11/20 04:00 07/11/20 05:27 07/11/20 07:01 Temperature 96.9 F L Pulse Rate 77 77 72 Respiratory Rate 26 H 22 H Blood Pressure 126/71 Pulse Oximetry 96 94 07/11/20 08:00 07/11/20 08:13 07/11/20 10:00 Temperature Pulse Rate 67 85 74 Respiratory Rate 20 Blood Pressure Pulse Oximetry 93 93 07/11/20 12:00 07/11/20 12:06 07/11/20 14:00 Temperature 98.1 F
[2020-07-11] MEDS: BUDESONIDE/FORMOTEROL (*SP) 160-4.5 MCG 6 GM INH 2 PUFF INHALATION (22:32)
[2020-07-11 22:45] LABS: Glucose Point of Care 217 (65-105)
[2020-07-11] MEDS: ALBUTEROL SULFATE (*SP) INHALER 1 PUFF (23:09)
[2020-07-12] VITALS (7 sets, daily range): BP systolic 127–154; BP diastolic 58–84; PULSE 60–87; RESP 18–22; TEMP 36.1–36.7; O2SAT 90–97
[2020-07-12 07:00] LABS: Hematocrit 43.5 % (37.0-47.0); Hemoglobin 12.5 g/dL (12.0-15.0); Mean Corpuscular HGB Conc 28.7 g/dl (32-36); Mean Corpuscular Hemoglobin 23.6 pg (26-34); Mean Corpuscular Volume 82.2 fl (80-100); Mean Platelet Volume 10.3 fl (7.4-10.4); Platelet Count Result 256 k/mm3 (150-375); Red Blood Count 5.29 M/mm3 (4.2-5.4); Red Cell Distribution Width 20.4 % (11.5-14.5); White Blood Count 6.4 K/mm3 (4.5-10.0)
[2020-07-12 07:11] LABS: D Dimer 0.57 ug/mL (<0.48)
[2020-07-12 07:22] LABS: Lactate Dehydrogenase 827 U/L (313-618)
[2020-07-12 07:44] LABS: Alanine Aminotransferase 26 U/L (4-35); Albumin Level 3.4 g/dL (3.5-5.1); Alkaline Phosphatase 77 U/L (38-126); Anion Gap 10 mmol/L (8-16); Aspartate Amino Transferase 39 U/L (14-36); Bilirubin,Total 0.6 mg/dL (0.2-1.3); Blood Urea Nitrogen 12 mg/dL (7-17); CRP 3.2 mg/dL (<1.0); Carbon Dioxide 36 mmol/L (22-30); Chloride 92 mmol/L (98-107); Estimated CRCL calculation 157 ml/min; Estimated Glomerular Filt Rate > 60; Glucose 135 mg/dL (65-105); Potassium 4.1 mmol/L (3.4-5.0); Sodium 138 mmol/L (137-145)
[2020-07-12] MEDS: guaiFENesin/DEXTROMETHORPHAN 10 ML UDC PO (08:06)
[2020-07-12] MEDS: FUROSEMIDE 40 MG TABLET PO ×2 (08:07→17:05)
[2020-07-12] MEDS: DEXAMETHASONE SOD PHOS INJ 4 MG/ML VIAL 6 MG IV PUSH (08:07)
[2020-07-12] MEDS: POTASSIUM CHLORIDE 10 MEQ TABLET.ER PO (08:07)
[2020-07-12] MEDS: ENOXAPARIN 40 MG/0.4 ML SYRINGE SUB-Q (08:07)
[2020-07-12] MEDS: BUDESONIDE/FORMOTEROL (*SP) 160-4.5 MCG 6 GM INH 2 PUFF INHALATION ×2 (08:34→22:05)
[2020-07-12] MEDS: REMDESIVIR 100 MG/NS 250 ML 100 MG/250 ML BAG 250 MG IVPB (10:00)
[2020-07-12 11:11] LABS: Glucose Point of Care 130 (65-105)
[2020-07-12 12:41] LABS: Glucose Point of Care 252 (65-105)
[2020-07-12] MEDS: INSULIN ASPART (*BKC) 100 UNITS/ML SUB-Q ×2 (12:54→18:15)
--- NOTE | 2020-07-12 16:49 | PM.IMPN ---
Progress Note: A&P Assessment and Plan (1) Acute hypoxemic respiratory failure due to COVID-19: Code(s): U07.1 - COVID-19; J96.01 - Acute respiratory failure with hypoxia Status: Acute Assessment and Plan: Day 3 dexamethasone Day 2 remdesivir, azithromycin, ceftriaxone Pt went up to 8 liters (2) CHF (congestive heart failure): Code(s): I50.9 - Heart failure, unspecified Status: Chronic Assessment and Plan: Clinically stable Continue furosemide (3) Cholelithiasis: Code(s): K80.20 - Calculus of gallbladder without cholecystitis without obstruction Status: Chronic Assessment and Plan: Patient is to follow-up with Dr. Mercado once she is off of her oxygen or cholecystecomy (4) Type 2 diabetes mellitus: Onset Date: ~06/03/20 Code(s): E11.9 - Type 2 diabetes mellitus without complications Status: Acute Assessment and Plan: Accu-Cheks AC and HS. Last A1c was 7.4. Sliding scale insulin (5) Asthma: Qualifiers: Asthma severity: unspecified severity Asthma persistence: persistent Asthma complication type: with acute exacerbation Qualified Code(s): J45.901 - Unspecified asthma with (acute) exacerbation Code(s): J45.909 - Unspecified asthma, uncomplicated Status: Acute Assessment and Plan: continue bronchodilators (6) Suspected sleep apnea: Code(s): R29.818 - Other symptoms and signs involving the nervous system Status: Acute Assessment and Plan: Sleep study ordered as outpatient deferred due to COVID-19 (7) Ovarian mass: Code(s): N83.8 - Other noninflammatory disorders of ovary, fallopian tube and broad ligament Status: Acute (8) Adnexal mass: Code(s): N94.89 - Other specified conditions associated with female genital organs and menstrual cycle Status: Chronic Assessment and Plan: Left (on MRI 05/2020) To f/u as outpatient with COMPRESSOR BATTERY PELLETS Subjective Date/time seen: 07/12/20 16:49 Interval history: Admitted 07/10 after POSITIVE COVID-19 test result received on 07/09. Attended [employer] gathering that included a few ill individuals. Ongoing cough in the room history of sleep apnea, asthma, cholelithiasis, DM. On day 2 of remdesivir, iv azithromycin and iv and oral lasix, iv steroids, pt is on 8 liters of oxygen Continue 5 days of remdesivir. Continue iv steroids. Continue on prone position. Review of Systems Review of Systems: All systems reviewed & are unremarkable except as noted in HPI and below Exam Narrative: Exam Narrative: GENERALLY: morbidly obese NECK: No JVD, adenopathy, or thyromegaly RESP: normal respiratory pattern on 8 liters of oxygen HEART: NL S1/S2, regular, no murmur ABDOMEN: BS+, soft, nontender, no mass, no bruits EXTREMITIES: No cyanosis, edema, or clubbing NEUROLOGIC: CN intact and symmetric to inspection. MUSCULOSKELETAL: Tone and strength symmetric. PSYCH: Alert. Oriented to person, place, and time. Objective Data Vital Signs Vital Signs: Vital Signs - 24 hr 07/11/20 17:23 07/11/20 17:56 07/11/20 20:00 Temperature 36.6 C 36.3 C L 36.4 C Pulse Rate 73 68 60 Respiratory Rate 24 H 20 20 Blood Pressure 146/57 H 146/59 H 133/75 Pulse Oximetry 95 94 95 07/11/20 20:46 07/12/20 00:00 07/12/20 04:00 Temperature 36.6 C 36.1 C L Pulse Rate 67 85 87 Respiratory Rate 22 H 22 H Blood Pressure 135/62 153/84 H Pulse Oximetry 95 97 90 07/12/20 08:00 07/12/20 12:00 Temperature 36.2 C L 36.6 C Pulse Rate 72 69 Respiratory Rate 18 18 Blood Pressure 136/75 127/58 L Pulse Oximetry 95 96 Intake/Output Intake/Output: Intake & Output 07/09/20 07/10/20 07/11/20 07/12/20 23:59 23:59 23:59 23:59 Intake Total 240 2200 1680 Output Total 1800 600 Balance -1560 1600 1680 Meds/Results Medications: Active Medications Generic Name Dose Route Start Last Admin Trade Name Freq PRN Reason Stop Dose Admin Alb
[2020-07-12 17:45] LABS: Glucose Point of Care 251 (65-105)
[2020-07-12 22:41] LABS: Glucose Point of Care 205 (65-105)
[2020-07-13] VITALS (9 sets, daily range): BP systolic 117–148; BP diastolic 46–82; PULSE 66–77; RESP 18–20; TEMP 36.1–36.7; O2SAT 92–99
[2020-07-13 06:41] LABS: Hematocrit 43.3 % (37.0-47.0); Hemoglobin 12.4 g/dL (12.0-15.0); Mean Corpuscular HGB Conc 28.6 g/dl (32-36); Mean Corpuscular Hemoglobin 22.8 pg (26-34); Mean Corpuscular Volume 79.7 fl (80-100); Mean Platelet Volume 10.2 fl (7.4-10.4); Platelet Count Result 263 k/mm3 (150-375); Red Blood Count 5.43 M/mm3 (4.2-5.4); Red Cell Distribution Width 19.8 % (11.5-14.5); White Blood Count 5.1 K/mm3 (4.5-10.0)
[2020-07-13 07:09] LABS: Alanine Aminotransferase 24 U/L (4-35); Albumin Level 3.3 g/dL (3.5-5.1); Alkaline Phosphatase 78 U/L (38-126); Aspartate Amino Transferase 33 U/L (14-36); Bilirubin,Total 0.5 mg/dL (0.2-1.3); Blood Urea Nitrogen 14 mg/dL (7-17); Calcium 8.6 mg/dL (8.4-10.2); Carbon Dioxide > 40 mmol/L (22-30); Chloride 91 mmol/L (98-107); Estimated CRCL calculation 157 ml/min; Estimated Glomerular Filt Rate > 60; Glucose 122 mg/dL (65-105); Potassium 4.1 mmol/L (3.4-5.0); Sodium 139 mmol/L (137-145)
[2020-07-13] MEDS: guaiFENesin/DEXTROMETHORPHAN 10 ML UDC PO (09:30)
[2020-07-13 09:41] LABS: Glucose Point of Care 99 (65-105)
[2020-07-13] MEDS: REMDESIVIR 100 MG/NS 250 ML 100 MG/250 ML BAG 125 MG IVPB (10:00)
[2020-07-13] MEDS: ALBUTEROL SULFATE (*SP) AEROSOL 1 PUFF INHALATION ×3 (10:00→17:30)
[2020-07-13] MEDS: BUDESONIDE/FORMOTEROL (*SP) 160-4.5 MCG 6 GM INH 2 PUFF INHALATION ×2 (14:20→21:24)
[2020-07-13] MEDS: FUROSEMIDE 40 MG TABLET PO ×2 (14:23→16:48)
[2020-07-13] MEDS: DEXAMETHASONE SOD PHOS INJ 4 MG/ML VIAL 6 MG IV PUSH (14:23)
[2020-07-13] MEDS: ENOXAPARIN 40 MG/0.4 ML SYRINGE SUB-Q (14:23)
[2020-07-13] MEDS: POTASSIUM CHLORIDE 10 MEQ TABLET.ER PO (14:23)
[2020-07-13 14:24] LABS: Glucose Point of Care 152 (65-105)
--- NOTE | 2020-07-13 16:06 | PM.IMPN ---
Progress Note: A&P Assessment and Plan (1) Acute hypoxemic respiratory failure due to COVID-19: Code(s): U07.1 - COVID-19; J96.01 - Acute respiratory failure with hypoxia Status: Acute Assessment and Plan: Day 4 dexamethasone Day 3 remdesivir, azithromycin, ceftriaxone Pt went up to 5 liters (2) CHF (congestive heart failure): Code(s): I50.9 - Heart failure, unspecified Status: Chronic Assessment and Plan: Clinically stable Continue furosemide (3) Cholelithiasis: Code(s): K80.20 - Calculus of gallbladder without cholecystitis without obstruction Status: Chronic Assessment and Plan: Patient is to follow-up with Dr. Mercado once she is off of her oxygen or cholecystecomy (4) Type 2 diabetes mellitus: Onset Date: ~06/03/20 Code(s): E11.9 - Type 2 diabetes mellitus without complications Status: Acute Assessment and Plan: Accu-Cheks AC and HS. Last A1c was 7.4. Sliding scale insulin (5) Asthma: Qualifiers: Asthma severity: unspecified severity Asthma persistence: persistent Asthma complication type: with acute exacerbation Qualified Code(s): J45.901 - Unspecified asthma with (acute) exacerbation Code(s): J45.909 - Unspecified asthma, uncomplicated Status: Acute Assessment and Plan: continue bronchodilators (6) Suspected sleep apnea: Code(s): R29.818 - Other symptoms and signs involving the nervous system Status: Acute Assessment and Plan: Sleep study ordered as outpatient deferred due to COVID-19 (7) Ovarian mass: Code(s): N83.8 - Other noninflammatory disorders of ovary, fallopian tube and broad ligament Status: Acute (8) Adnexal mass: Code(s): N94.89 - Other specified conditions associated with female genital organs and menstrual cycle Status: Chronic Assessment and Plan: Left (on MRI 05/2020) To f/u as outpatient with DIRECTOR OF MEDICAL EDUCATION Subjective Date/time seen: 07/13/20 16:06 Interval history: Admitted 07/10 after POSITIVE COVID-19 test result received on 07/09. Attended [employer] gathering that included a few ill individuals. Ongoing cough in the room history of sleep apnea, asthma, cholelithiasis, DM. On day 3 of remdesivir, iv azithromycin and iv and oral lasix, iv steroids, pt is on 5 liters of oxygen Continue 5 days of remdesivir. Continue iv steroids. Continue on prone position. Ongoing mild cough Review of Systems Review of Systems: All systems reviewed & are unremarkable except as noted in HPI and below Exam Narrative: Exam Narrative: GENERALLY: morbidly obese NECK: No JVD, adenopathy, or thyromegaly RESP: normal respiratory pattern on 5 liters of oxygen ABDOMEN: BS+, soft, nontender, no mass, no bruits EXTREMITIES: No cyanosis, edema, or clubbing NEUROLOGIC: CN intact and symmetric to inspection. MUSCULOSKELETAL: Tone and strength symmetric. PSYCH: Alert. Oriented to person, place, and time. Objective Data Vital Signs Vital Signs: Vital Signs - 24 hr 07/12/20 20:00 07/12/20 22:00 07/13/20 00:00 Temperature 36.2 C L 36.1 C L Pulse Rate 60 69 Respiratory Rate 20 20 Blood Pressure 154/66 H 148/78 H Pulse Oximetry 96 96 95 07/13/20 04:00 07/13/20 08:00 07/13/20 12:00 Temperature 36.1 C L 36.7 C 36.6 C Pulse Rate 70 69 70 Respiratory Rate 20 18 20 Blood Pressure 117/46 L 139/78 134/80 Pulse Oximetry 99 97 92 Intake/Output Intake/Output: Intake & Output 07/10/20 07/11/20 07/12/20 07/13/20 23:59 23:59 23:59 23:59 Intake Total 240 2200 4065 1450 Output Total 1800 600 Balance -1560 1600 4065 1450 Meds/Results Medications: Active Medications Generic Name Dose Route Start Last Admin Trade Name Freq PRN Reason Stop Dose Admin Albuterol 1 puff 07/10/20 19:16 07/13/20 10:00 Albuterol Sulfate (*Sp) Aerosol 1 Puff INHALATION 1 puff Q4-6H PRN Administration Shortness Of Breath Budesonide/
[2020-07-13] MEDS: INSULIN ASPART (*BKC) 100 UNITS/ML SUB-Q (16:45)
[2020-07-13 17:37] LABS: Glucose Point of Care 327 (65-105)
[2020-07-13 22:33] LABS: Glucose Point of Care 260 (65-105)
[2020-07-14] VITALS: BP 143/74; PULSE 74; RESP 18; TEMP 36.1; O2SAT 98
[2020-07-14 04:00] VITALS: BP 143/79; PULSE 69; RESP 20; TEMP 36.2; O2SAT 97
[2020-07-14 06:48] LABS: Alanine Aminotransferase 30 U/L (4-35)
[2020-07-14 07:56] LABS: Glucose Point of Care 119 (65-105)
[2020-07-14 08:00] VITALS: BP 149/87; PULSE 71; RESP 16; TEMP 36.7; O2SAT 98
[2020-07-14 09:01] LABS: Alanine Aminotransferase 30 U/L (4-35); Albumin Level 3.4 g/dL (3.5-5.1); Alkaline Phosphatase 82 U/L (38-126); Aspartate Amino Transferase 41 U/L (14-36); Bilirubin,Total 0.5 mg/dL (0.2-1.3); Blood Urea Nitrogen 14 mg/dL (7-17); Calcium 8.9 mg/dL (8.4-10.2); Carbon Dioxide > 40 mmol/L (22-30); Chloride 88 mmol/L (98-107); Estimated CRCL calculation 134 ml/min; Estimated Glomerular Filt Rate > 60; Glucose 136 mg/dL (65-105); Potassium 3.6 mmol/L (3.4-5.0); Sodium 137 mmol/L (137-145)
[2020-07-14] MEDS: BUDESONIDE/FORMOTEROL (*SP) 160-4.5 MCG 6 GM INH 2 PUFF INHALATION ×2 (09:07→20:48)
[2020-07-14] MEDS: POTASSIUM CHLORIDE 10 MEQ TABLET.ER PO (09:09)
[2020-07-14] MEDS: FUROSEMIDE 40 MG TABLET PO ×2 (09:09→17:04)
[2020-07-14] MEDS: DEXAMETHASONE SOD PHOS INJ 4 MG/ML VIAL 6 MG IV PUSH (09:09)
[2020-07-14] MEDS: ENOXAPARIN 40 MG/0.4 ML SYRINGE SUB-Q (09:09)
[2020-07-14] MEDS: REMDESIVIR 100 MG/NS 250 ML 100 MG/250 ML BAG 250 MG IVPB (10:11)
[2020-07-14] MEDS: INSULIN ASPART (*BKC) 100 UNITS/ML SUB-Q ×2 (11:31→17:04)
[2020-07-14 11:34] LABS: Glucose Point of Care 208 (65-105)
[2020-07-14 12:00] VITALS: BP 151/87; PULSE 74; RESP 20; TEMP 36.6; O2SAT 98
--- NOTE | 2020-07-14 12:08 | PM.IMPN ---
Progress Note: A&P Assessment and Plan (1) Acute hypoxemic respiratory failure due to COVID-19: Code(s): U07.1 - COVID-19; J96.01 - Acute respiratory failure with hypoxia Status: Acute Assessment and Plan: Continue dexamethasone Day 4 remdesivir, azithromycin, ceftriaxone Pt is on 5 liters CXR - shows resolving covid pneumonia. (2) CHF (congestive heart failure): Code(s): I50.9 - Heart failure, unspecified Status: Chronic Assessment and Plan: Clinically stable Continue furosemide (3) Cholelithiasis: Code(s): K80.20 - Calculus of gallbladder without cholecystitis without obstruction Status: Chronic Assessment and Plan: Patient is to follow-up with Dr. Mercado once she is off of her oxygen or cholecystecomy (4) Type 2 diabetes mellitus: Onset Date: ~06/03/20 Code(s): E11.9 - Type 2 diabetes mellitus without complications Status: Acute Assessment and Plan: Accu-Cheks AC and HS. Last A1c was 7.4. Sliding scale insulin (5) Asthma: Qualifiers: Asthma severity: unspecified severity Asthma persistence: persistent Asthma complication type: with acute exacerbation Qualified Code(s): J45.901 - Unspecified asthma with (acute) exacerbation Code(s): J45.909 - Unspecified asthma, uncomplicated Status: Acute Assessment and Plan: continue bronchodilators (6) Suspected sleep apnea: Code(s): R29.818 - Other symptoms and signs involving the nervous system Status: Acute Assessment and Plan: Sleep study ordered as outpatient deferred due to COVID-19 (7) Ovarian mass: Code(s): N83.8 - Other noninflammatory disorders of ovary, fallopian tube and broad ligament Status: Acute (8) Adnexal mass: Code(s): N94.89 - Other specified conditions associated with female genital organs and menstrual cycle Status: Chronic Assessment and Plan: Left (on MRI 05/2020) To f/u as outpatient with LOGISTICS SUPERVISOR Subjective Date/time seen: 07/14/20 12:08 Interval history: Admitted 07/10 after POSITIVE COVID-19 test result received on 07/09. Attended [employer] gathering that included a few ill individuals. Ongoing cough in the room history of sleep apnea, asthma, cholelithiasis, DM. On day 4 of remdesivir, iv azithromycin and iv and oral lasix, iv steroids, pt is on 5 liters of oxygen Continue 5 days of remdesivir. Continue iv steroids. Continue on prone position. Ongoing mild cough Review of Systems Review of Systems: All systems reviewed & are unremarkable except as noted in HPI and below Exam Narrative: Exam Narrative: GENERALLY: morbidly obese NECK: No JVD, adenopathy, or thyromegaly RESP: normal respiratory pattern on 5 liters of oxygen ABDOMEN: BS+, soft, nontender, no mass, no bruits EXTREMITIES: No cyanosis, edema, or clubbing NEUROLOGIC: CN intact and symmetric to inspection. MUSCULOSKELETAL: Tone and strength symmetric. PSYCH: Alert. Oriented to person, place, and time. Objective Data Vital Signs Vital Signs: Vital Signs - 24 hr 07/13/20 16:00 07/13/20 16:16 07/13/20 20:00 Temperature 36.7 C 36.3 C L Pulse Rate 77 66 Respiratory Rate 18 18 Blood Pressure 130/82 132/67 Pulse Oximetry 93 92 94 07/13/20 20:32 07/13/20 21:20 07/14/20 00:00 Temperature 36.1 C L Pulse Rate 74 Respiratory Rate 18 Blood Pressure 143/74 H Pulse Oximetry 96 94 98 07/14/20 04:00 07/14/20 08:00 Temperature 36.2 C L 36.7 C Pulse Rate 69 71 Respiratory Rate 20 16 Blood Pressure 143/79 H 149/87 H Pulse Oximetry 97 98 Intake/Output Intake/Output: Intake & Output 07/11/20 07/12/20 07/13/20 07/14/20 23:59 23:59 23:59 23:59 Intake Total 2200 4065 3040 1140 Output Total 600 Balance 1600 4065 3040 1140 Meds/Results Medications: Active Medications Generic Name Dose Route Start Last Admin Trade Name Freq PRN Reason Stop Dose Admin Albuterol 1 puff
[2020-07-14 16:00] VITALS: BP 129/67; PULSE 69; RESP 20; TEMP 36.2; O2SAT 94
[2020-07-14 17:03] LABS: Glucose Point of Care 351 (65-105)
[2020-07-14 20:00] VITALS: BP 140/79; PULSE 70; RESP 18; TEMP 36.2; O2SAT 98
[2020-07-14 22:26] LABS: Glucose Point of Care 240 (65-105)
[2020-07-15] VITALS (10 sets, daily range): BP systolic 103–145; BP diastolic 45–89; PULSE 68–80; RESP 18–20; TEMP 36.2–36.8; O2SAT 92–99
[2020-07-15 07:10] LABS: Alanine Aminotransferase 50 U/L (4-35); Albumin Level 3.4 g/dL (3.5-5.1); Alkaline Phosphatase 82 U/L (38-126); Aspartate Amino Transferase 47 U/L (14-36); Bilirubin,Total 0.5 mg/dL (0.2-1.3); Blood Urea Nitrogen 14 mg/dL (7-17); Carbon Dioxide > 40 mmol/L (22-30); Chloride 88 mmol/L (98-107); Estimated CRCL calculation 134 ml/min; Estimated Glomerular Filt Rate > 60; Glucose 136 mg/dL (65-105); Potassium 3.8 mmol/L (3.4-5.0); Sodium 139 mmol/L (137-145)
[2020-07-15 08:20] LABS: Glucose Point of Care 116 (65-105)
[2020-07-15] MEDS: DEXAMETHASONE SOD PHOS INJ 4 MG/ML VIAL 6 MG IV PUSH (08:24)
[2020-07-15] MEDS: ENOXAPARIN 40 MG/0.4 ML SYRINGE SUB-Q (08:25)
[2020-07-15] MEDS: POTASSIUM CHLORIDE 10 MEQ TABLET.ER PO (08:25)
[2020-07-15] MEDS: FUROSEMIDE 40 MG TABLET PO ×2 (08:25→16:37)
[2020-07-15] MEDS: ALBUTEROL SULFATE (*SP) AEROSOL 1 PUFF INHALATION (08:27)
[2020-07-15] MEDS: BUDESONIDE/FORMOTEROL (*SP) 160-4.5 MCG 6 GM INH 2 PUFF INHALATION ×2 (08:27→21:13)
[2020-07-15] MEDS: REMDESIVIR 100 MG/NS 250 ML 100 MG/250 ML BAG 250 MG IVPB (10:06)
[2020-07-15] MEDS: INSULIN ASPART (*BKC) 100 UNITS/ML SUB-Q ×2 (12:24→16:38)
[2020-07-15 15:54] LABS: Glucose Point of Care 211 (65-105)
[2020-07-15 16:46] LABS: Glucose Point of Care 339 (65-105)
--- NOTE | 2020-07-15 17:54 | PM.IMPN ---
Progress Note: A&P Assessment and Plan (1) Acute hypoxemic respiratory failure due to COVID-19: Code(s): U07.1 - COVID-19; J96.01 - Acute respiratory failure with hypoxia Status: Acute Assessment and Plan: Continue dexamethasone completed day 5 of Remdesivir and IV steroids. continues to try to be active has a harsh productive cough with green to yellow sputum with any deep breathing. Weaned today from 5 L of oxygen per nasal cannula down to 1 L of oxygen per nasal cannula. Continued her IV azithromycin, Lasix and IV Rocephin. Anticipating that the patient will be weaned off all oxygen in the morning tomorrow. ordered a home oxygen evaluation for tomorrow morning as well as an ABG timed for 9:00 a.m.. CXR - shows resolving covid pneumonia. (2) CHF (congestive heart failure): Code(s): I50.9 - Heart failure, unspecified Status: Chronic Assessment and Plan: Clinically stable Continue furosemide on Jul.10 BNP 848, repeating in the morning BLE without edema today. (3) Cholelithiasis: Code(s): K80.20 - Calculus of gallbladder without cholecystitis without obstruction Status: Chronic Assessment and Plan: Patient is to follow-up with Dr. Mercado once she is off of her oxygen for cholecystectomy (4) Type 2 diabetes mellitus: Onset Date: ~06/03/20 Code(s): E11.9 - Type 2 diabetes mellitus without complications Status: Acute Assessment and Plan: Accu-Cheks AC and HS. Last A1c was 7.4. Sliding scale insulin Her glucose levels are controlled, and were 116 this morning. (5) Asthma: Qualifiers: Asthma complication type: with acute exacerbation Asthma persistence: persistent Asthma severity: unspecified severity Qualified Code(s): J45.901 - Unspecified asthma with (acute) exacerbation Code(s): J45.909 - Unspecified asthma, uncomplicated Status: Acute Assessment and Plan: continue bronchodilators and neb txs controlled at this time. (6) Suspected sleep apnea: Code(s): R29.818 - Other symptoms and signs involving the nervous system Status: Acute Assessment and Plan: Sleep study ordered as outpatient deferred due to COVID-19 last hospital visit they completed an apnea link on June 03 that showed she needed to have a complete sleep study done outpatient. She stated that she has yet to get that completed but plans to do so. 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 Attended [place] gathering that included a few ill individuals. Iris told me today that her whole family was ill at home, and that she was worried about her having a pulse ox of 90% today. She instructed him to call his primary care provider. She completed day 5 of Remdesivir and IV steroids. She continues to be active, has a harsh productive cough with green to yellow sputum with any deep breathing. Weaned today from 5 L of oxygen per nasal cannula down to 1 L of oxygen per nasal cannula. Continued her IV azithromycin, Lasix and IV Rocephin. Her last hospital visit they completed an apnea link on June 03 that showed she needed to have a complete sleep study done outpatient. She stated that she has yet to get that completed but plans to do so. Her glucose levels are controlled, and were 116 this morning. Anticipating that the patient will be weaned off all oxygen in the morning to
[2020-07-15 21:15] LABS: Glucose Point of Care 264 (65-105)
[2020-07-16] VITALS (8 sets, daily range): BP systolic 135; BP diastolic 81; PULSE 79–102; RESP 20; TEMP 36.4; O2SAT 92–96
[2020-07-16 05:48] LABS: Basophils Percent Auto 0.1 % (0.2-1.2); Eosinophils Absolute Auto 0.1 K/mm3 (0-0.3); Eosinophils Percent Auto 0.7 % (0-4.4); Hematocrit 45.5 % (37.0-47.0); Hemoglobin 13.5 g/dL (12.0-15.0); Immature Granulocyte Absolute 0.03 K/mm3 (0.00-0.031); Immature Granulocyte Percent A 0.4 % (0-0.5); Lymphocytes Absolute Auto 1.42 K/mm3 (0.9-3.2); Lymphocytes Percent Auto 16.7 % (18.3-44.2); Mean Corpuscular HGB Conc 29.7 g/dl (32-36); Mean Corpuscular Volume 77.5 fl (80-100); Mean Platelet Volume 9.7 fl (7.4-10.4); Monocytes Absolute Auto 0.9 K/mm3 (0.1-0.6); Neutrophils Absolute Auto 6.1 K/mm3 (1.3-6.7); Neutrophils Percent Auto 72.1 % (45.5-73.1); Platelet Count Result 297 k/mm3 (150-375); Red Blood Count 5.87 M/mm3 (4.2-5.4); Red Cell Distribution Width 19.4 % (11.5-14.5); White Blood Count 8.5 K/mm3 (4.5-10.0)
[2020-07-16 06:11] LABS: Alanine Aminotransferase 40 U/L (4-35); Albumin Level 3.3 g/dL (3.5-5.1); Alkaline Phosphatase 79 U/L (38-126); Aspartate Amino Transferase 31 U/L (14-36); Bilirubin,Total 0.6 mg/dL (0.2-1.3); Blood Urea Nitrogen 16 mg/dL (7-17); CRP 0.5 mg/dL (<1.0); Calcium 8.8 mg/dL (8.4-10.2); Carbon Dioxide > 40 mmol/L (22-30); Chloride 91 mmol/L (98-107); Estimated CRCL calculation 157 ml/min; Estimated Glomerular Filt Rate > 60; Glucose 143 mg/dL (65-105); Potassium 3.6 mmol/L (3.4-5.0); Sodium 138 mmol/L (137-145)
[2020-07-16 06:15] LABS: NT Pro B Type Natriuretic Pept 164 PG/ML (5-100)
[2020-07-16 06:22] LABS: Hypochromasia 1+ (NORMAL); Platelet Estimate Adequate (Adequate); Poikilocytosis 1+ (NORMAL)
[2020-07-16 06:33] LABS: Lactate Dehydrogenase 414 U/L (313-618)
[2020-07-16] MEDS: FUROSEMIDE 40 MG TABLET PO (09:13)
[2020-07-16] MEDS: DEXAMETHASONE SOD PHOS INJ 4 MG/ML VIAL 6 MG IV PUSH (09:13)
[2020-07-16] MEDS: POTASSIUM CHLORIDE 10 MEQ TABLET.ER PO (09:13)
[2020-07-16] MEDS: BUDESONIDE/FORMOTEROL (*SP) 160-4.5 MCG 6 GM INH 2 PUFF INHALATION (09:21)
[2020-07-16 09:34] LABS: Alveolar/Arterial O2 Gradient 45.4 mmHg; Base Excess ABG 10.5 mEq/l (+/-2.0); Fractional Inspired Oxygen 21 %; HCO3 ABG 35.6 mEq/l (22.0-26.0); Oxygen Content ABG 16.9 %vol (16.0-22.0); Oxyhemoglobin 81.6 % THb (90.0-100.0); PCO2 ABG 48.2 mmHg (35.0-45.0); PO2 FiO2 Ratio Arterial Blood 2.22 %; Total Hemoglobin 14.8 g/dL (12.0-18.0); pH ABG 7.486 (7.350-7.450)
[2020-07-16 09:35] LABS: PO2 ABG 46.6 mmHg (80.0-100.0)
[2020-07-16 09:36] LABS: Device ROOM AIR; Modified Allen's Test Pass; Oxygen Saturation ABG 85.2 % (95.0-100.0); Site Drawn LEFT RADIAL
--- NOTE | 2020-07-16 09:40 | PCNWS ---
Weekly nutritional screen. Patient is tolerating current diet with adequate intake. No nutritional needs at this time.
--- NOTE | 2020-07-16 10:15 | PM.DS ---
DS: Admitting Diagnosis Admitting Diagnosis Admitting Diagnosis: SOB DS: Discharge Diagnosis Discharge Diagnosis (1) Acute hypoxemic respiratory failure due to COVID-19: Code(s): U07.1 - COVID-19; J96.01 - Acute respiratory failure with hypoxia Status: Acute Assessment and Plan: CXR - shows resolving covid pneumonia on admission Pt treated with dexamethasone 5 days of remdesivir, azithromycin, ceftriaxone Pt is on RA, pt passed home oxygen assessment prior to discharge (2) CHF (congestive heart failure): Code(s): I50.9 - Heart failure, unspecified Status: Chronic Assessment and Plan: Clinically stable Continue furosemide (3) Cholelithiasis: Code(s): K80.20 - Calculus of gallbladder without cholecystitis without obstruction Status: Chronic Assessment and Plan: Patient is to follow-up with Dr. Mercado once she is off of her oxygen for cholecystecomy (4) Type 2 diabetes mellitus: Onset Date: ~06/03/20 Code(s): E11.9 - Type 2 diabetes mellitus without complications Status: Acute Assessment and Plan: Accu-Cheks AC and HS. Last A1c was 7.4. (5) Asthma: Qualifiers: Asthma complication type: with acute exacerbation Asthma persistence: persistent Asthma severity: unspecified severity Qualified Code(s): J45.901 - Unspecified asthma with (acute) exacerbation Code(s): J45.909 - Unspecified asthma, uncomplicated Status: Acute Assessment and Plan: continue bronchodilators (6) Suspected sleep apnea: Code(s): R29.818 - Other symptoms and signs involving the nervous system Status: Acute Assessment and Plan: Sleep study ordered as outpatient deferred due to COVID-19 (7) Ovarian mass: Code(s): N83.8 - Other noninflammatory disorders of ovary, fallopian tube and broad ligament Status: Acute (8) Adnexal mass: Code(s): N94.89 - Other specified conditions associated with female genital organs and menstrual cycle Status: Chronic Assessment and Plan: Left (on MRI 05/2020) 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 after POSITIVE COVID-19 test result received on Jul.09. Attended [employer] gathering that included a few ill individuals. Iris told me today that her whole family was ill at home, and that she was worried about her having a pulse ox of 90% today. She instructed him to call his primary care provider. Continued her IV azithromycin, Lasix and IV Rocephin. Her last hospital visit they completed an apnea link on June 03 that showed she needed to have a complete sleep study done outpatient. As from previous note. Pt has completed day 5 of Remdesivir and IV steroids. I have ordered a home oxygen and ABG prior to discharge to check pt does not need oxygen at home. Pt is stable for DC, did not qualify for home oxygen. DC on oral steroids. Time Spent with Patient Time attestation: Total time spent providing and/or coordinating discharge services:40 minutes on day of discharge Exam Narrative: Exam Narrative: GENERALLY: morbidly obese NECK: No JVD, adenopathy, or thyromegaly RESP: normal respiratory pattern ABDOMEN: BS+, soft, nontender, no mass, no bruits EXTREMITIES: No cyanosis, edema, or clubbing NEUROLOGIC: CN intact and symmetric to inspection. MUSCULOSKELETAL: Tone and strength symmetric. PSYCH: Alert. Oriented to person, place, and time. DS: Data Data Completed and Pending Labs on day of discharge: Labs from last 24 hours 07/16/20 07/16/20 07/16/20 09:23 05:36 05:36 WBC RBC Hgb Hct MCV MCH MCHC RDW Plt Count MPV Immature Gran % (Auto) Neut % (Auto) Lymph % (Auto) [place] % (Auto) Eos % (Auto) Baso % (Auto) Lymph # (Auto) [place] # (Auto) Eos # (Auto) Baso # (Auto) Abs Immat Gran (auto) Absolute Neuts (
[2020-07-16 10:17] LABS: Glucose Point of Care 112 (65-105)
--- NOTE | 2020-07-16 11:05 | PCRCNOTE ---
HOME O2 EVAL COMPLETE, NO REQUIREMENTS
[2020-07-16] MEDS: INSULIN ASPART (*BKC) 100 UNITS/ML SUB-Q (13:01)
[2020-07-16 13:08] LABS: Glucose Point of Care 256 (65-105)
== END 2020-07-16 13:45 | disposition home or self-care (01) | DRG 137 ==
LOC: ANHED 11:47 → ANHIMU 16:09 → ANH3MEDSUR 07-13 10:41 → ANHIMU 07-20 14:46
PROVIDERS: Family Medicine; Internal Medicine; Nurse Practitioner; Admitting Provider Family Medicine; Emergency Provider Emergency Medicine; PCP Family Medicine; Visit Provider Nurse Practitioner
DX: U07.1 COVID-19 (principal); J96.01 Acute respiratory failure with hypoxia; I50.9 Heart failure, unspecified; J45.901 Unspecified asthma with (acute) exacerbation; G47.30 Sleep apnea, unspecified; E11.9 Type 2 diabetes mellitus without complications; K80.20 Calculus of gallbladder without cholecystitis without obstruction; N83.8 Other noninflammatory disorders of ovary, fallopian tube and broad ligament; N94.89 Other specified conditions associated with female genital organs and menstrual cycle; E66.01 Morbid (severe) obesity due to excess calories; Z68.43 Body mass index [BMI] 50.0-59.9, adult; Z28.21 Immunization not carried out because of patient refusal; Z79.899 Other long term (current) drug therapy; Z87.891 Personal history of nicotine dependence
CPT/HCPCS: 36415; 36600; 71045; 80048; 80053; 82728; 82805; 83605; 83615; 83735; 83880; 84460; 85025; 85027; 85380; 86140; 93005; 94618; 94640; 94762; 99291; A9270; J0456; J0696; J1100; J1650; J1815

== ENCOUNTER 2020-08-04 09:42 | Outpatient (CLI) | payer OTHER, SELFPAY ==
[2020-08-04 09:45] VITALS: PULSE 92; O2SAT 94
[2020-08-04 09:50] VITALS: PULSE 109; O2SAT 86
[2020-08-04 09:55] VITALS: PULSE 108; O2SAT 88
[2020-08-04 10:00] VITALS: PULSE 111; O2SAT 91
[2020-08-04 10:15] VITALS: PULSE 94; O2SAT 93
--- NOTE | 2020-08-04 11:05 | HOMEO2EVAL ---
Home Oxygen Evaluation RC: Home Oxygen (O2) Evaluation Start: 08/04/20 10:47 Freq: Status: Active Protocol: RPE Activity Type Activity Date Activity User E-Sign Co-Sign Detail Recorded Client Recorded Date Recorded By Document 08/04/20 09:45 [email or web address] [email or web address] 08/04/20 11:04 KMV Document 08/04/20 09:50 [email or web address] [email or web address] 08/04/20 11:04 KMV Document 08/04/20 09:55 KMV [email or web address] 08/04/20 11:04 KMV Document 08/04/20 10:00 [email or web address] [email or web address] 08/04/20 11:04 KMV Document 08/04/20 10:15 [email or web address] [email or web address] 08/04/20 11:04 KMV 08/04/20 08/04/20 08/04/20 09:45 09:50 09:55 Home O2 Evaluation Test Phase Resting Exercise Exercise Oxygen Delivery Room Air Room Air Nasal Cannula Oxygen Flow Rate (L/min) 1 Pulse Oximetry (90-100 %) 94 86 L 88 L Pulse Rate (60-100 beats/min) 92 109 H 108 H Ambulation Distance (feet) Home Oxygen Evaluation Comments Treatment Charges O2 Evaluation 08/04/20 08/04/20 10:00 10:15 Home O2 Evaluation Test Phase Exercise Resting Oxygen Delivery Nasal Cannula Room Air Oxygen Flow Rate (L/min) 2 Pulse Oximetry (90-100 %) 91 93 Pulse Rate (60-100 beats/min) 111 H 94 Ambulation Distance (feet) 700 Home Oxygen Evaluation Comments PT SAO2 STAYED ADEQUATE UNTIL 300 FEET, THEN DROPPED. Treatment Charges
--- NOTE | 2020-08-08 13:23 | WPDPFTINT ---
PFT Interpretation PFT Interpretation: This PFT met all criteria for ATS standards and reproducibility FEV/FVC post bronchodilator 80% FEV1 68% FVC 65% or 2.15 liters TLC 73% or 3.61 liters RV 79% RV/TLC 39% DLCO 55% when adjusted for alveolar volume but not adjusted for hemoglobin Flow volume loops showed no expiratory coving Impression: A restrictive ventilatory defect is present with moderately reduced diffusion capacity. This pattern is suggestive of ILD. Clinical correlation is advised.
== END 2020-08-04 09:43 | disposition home or self-care (01) ==
PROVIDERS: Family Provider Family Medicine; PCP Family Medicine; Visit Provider Nurse Practitioner Family
DX: R06.02 Shortness of breath (principal); J45.901 Unspecified asthma with (acute) exacerbation
CPT/HCPCS: 94060; 94618; 94726; 94729

== ENCOUNTER 2020-08-19 10:55 | Outpatient (CLI) | payer OTHER, SELFPAY ==
[2020-08-19 11:44] LABS: Hematocrit 45.6 % (37.0-47.0); Hemoglobin 13.9 g/dL (12.0-15.0); Mean Corpuscular HGB Conc 30.5 g/dl (32-36); Mean Corpuscular Hemoglobin 25.1 pg (26-34); Mean Corpuscular Volume 82.3 fl (80-100); Mean Platelet Volume 9.2 fl (7.4-10.4); Platelet Count Result 375 k/mm3 (150-375); Red Blood Count 5.54 M/mm3 (4.2-5.4); Red Cell Distribution Width 21.6 % (11.5-14.5); White Blood Count 16.7 K/mm3 (4.5-10.0)
[2020-08-19 11:56] LABS: Alanine Aminotransferase 42 U/L (4-35); Albumin Level 3.8 g/dL (3.5-5.1); Alkaline Phosphatase 94 U/L (38-126); Aspartate Amino Transferase 40 U/L (14-36); Bilirubin,Total 0.3 mg/dL (0.2-1.3)
[2020-08-19 12:19] LABS: Iron 48 ug/dL (37-170); Percent Iron Saturation 14 % (20-50)
== END 2020-08-19 10:56 | disposition home or self-care (01) ==
LOC: ANHLAB 10:58
PROVIDERS: PCP Family Medicine; Visit Provider Nurse Practitioner
DX: D50.9 Iron deficiency anemia, unspecified (principal); R79.89 Other specified abnormal findings of blood chemistry
CPT/HCPCS: 36415; 80076; 82728; 83540; 83550; 85027

== ENCOUNTER 2020-09-07 10:36 | Outpatient (CLI) | payer OTHER, SELFPAY ==
--- NOTE | ~2020-09-07 | CT_ITS ---
EXAMINATION: CT chest high resolution [facility] EXAM DATE: 09/07/2020 11:07 INDICATION: J84.9 - Interstitial pulmonary disease, unspecified . TECHNIQUE: Spiral CT of the chest without contrast. HRCT. Axial, coronal and sagittal images were rev iewed. Coronal maximum intensity pixel images of chest reviewed. The dose-length product (DLP) for this examination was 770.57 mGy-cm. The exposure was tailored according to patient size (auto mA exp osure control), and iterative reconstruction (ASIR) was used as additional dose reduction technique. There is no prior study for comparison. FINDINGS: Several punctate nodules consistent with granulomas. There is faint mosaic attenuation pro bably mild air trapping. The lungs are otherwise clear. There is no intralobular septal thickening o n the HRCT. There are no pleural or pericardial effusions. Tracheobronchial tree is patent. There is no mediastinal, hilar or axillary lymphadenopathy. There is no pneumothorax. Heart normal in size. No evidence of coronary arterial calcification. Upper abdomen is unremarkable. There is mi ld thoracic spondylosis without osteoblastic or osteolytic lesions identified. There is small thyroid nodules up to 1 cm in each thyroid lobe. IMPRESSION: 1. Faint mosaic attenuation likely mild air trapping. 2. Small thyroid nodules. Reviewed, dictated and finalized at location A. FINISHER
[2020-09-07 11:10] VITALS: PULSE 88; O2SAT 95
[2020-09-07 11:13] VITALS: PULSE 99; O2SAT 86
[2020-09-07 11:14] VITALS: O2SAT 87
[2020-09-07 11:15] VITALS: PULSE 103; O2SAT 92
[2020-09-07 11:25] VITALS: PULSE 86; O2SAT 94
--- NOTE | 2020-09-07 11:42 | HOMEO2EVAL ---
Home Oxygen Evaluation RC: Home Oxygen (O2) Evaluation Start: 09/07/20 11:39 Freq: Status: Active Protocol: RPE Activity Type Activity Date Activity User E-Sign Co-Sign Detail Recorded Client Recorded Date Recorded By Document 09/07/20 11:10 PAM [email or web address] 09/07/20 11:42 PAM Document 09/07/20 11:13 PAM [email or web address] 09/07/20 11:42 PAM Document 09/07/20 11:14 PAM [email or web address] 09/07/20 11:42 PAM Document 09/07/20 11:15 PAM [email or web address] 09/07/20 11:42 PAM Document 09/07/20 11:25 PAM [email or web address] 09/07/20 11:42 PAM 09/07/20 09/07/20 09/07/20 11:10 11:13 11:14 Home O2 Evaluation Test Phase Resting Exercise Exercise Oxygen Delivery Room Air Room Air Nasal Cannula Oxygen Flow Rate (L/min) 1 Pulse Oximetry (90-100 %) 95 86 L 87 L Pulse Rate (60-100 beats/min) 88 99 Activity Tolerance Ambulation Distance (feet) 250 Home Oxygen Evaluation Comments Treatment Charges O2 Evaluation - Outpatient 09/07/20 09/07/20 11:15 11:25 Home O2 Evaluation Test Phase Exercise Resting Oxygen Delivery Nasal Cannula Room Air Oxygen Flow Rate (L/min) 2 Pulse Oximetry (90-100 %) 92 94 Pulse Rate (60-100 beats/min) 103 H 86 Activity Tolerance Excellent Ambulation Distance (feet) 250 Home Oxygen Evaluation Comments PT REQUIRES 2 LITERS WITH EXERTION/ ACTIVITY Treatment Charges
--- NOTE | 2020-09-07 11:43 | PCRCNOTE ---
SIX MINUTE WALK CHANGED TO HOME O2 EVAL, PT REQUIRES 2 L WITH EXERTION. CALLED AND FAXED EVAL TO OFFICE WITH NOTE REGARDING HOME SET UP REQUIRED.
== END 2020-09-07 10:37 | disposition home or self-care (01) ==
LOC: ANHIMG 10:49
PROVIDERS: PCP Family Medicine; Visit Provider Nurse Practitioner Family
DX: J84.9 Interstitial pulmonary disease, unspecified (principal); R91.8 Other nonspecific abnormal finding of lung field; E04.2 Nontoxic multinodular goiter
CPT/HCPCS: 71250; 94618

== ENCOUNTER 2020-09-15 09:04 | Outpatient (CLI) | payer OTHER, SELFPAY ==
--- NOTE | 2020-10-04 13:49 | WPDHOMESLEEP ---
Sleep Study - Home Unattended Date of Study: 09/15/20 Ordering Provider: Yue Jacobs MD Interpreting Provider: Yue Jacobs MD Home Sleep Study Type: Apnea Link Air Height: 1.63 m Weight: 136.078 kg Body Mass Index: 51.5 Neck Circumference (inches): 15.5 [place]: 15 Reason for Sleep Study Excessive daytime sleepiness Sleep History Iris Prasad is a 50-year-old female with frequent snoring which is frequently loud enough that others complain about it. She rarely awakens at night with heartburn, belching or coughing. She does not awaken from sleep feeling short of breath. She has had increased problems with swelling in her legs. She does not wake up gasping for breath at night. She does not sweat excessively at night or notice her heart pounding or beating irregularly at night. She frequently falls asleep during the day, frequently involuntarily only rarely while driving. She does not fall asleep while exerting physical effort. She does not have loss of muscle tone with strong emotion. She frequently has daytime sleepiness. She does not feel paralyzed on waking or falling asleep. She occasionally has vivid dreamlike scenes upon awakening or falling asleep. She does not feel afraid to go to sleep. She does not have nightmares. She frequently remembers her dreams. She rarely has racing thoughts. She rarely feels sad or depressed. She does not have anxiety. She occasionally has muscular tension. She does not notice parts of her body jerking. She does not kick at night or have crawling or aching feelings in her legs. She does not have any kind of leg pain at night. She does not have morning jaw pain. She does not grind her teeth during sleep. She frequently is bothered by pain during the day. She rarely is awakened by pain at night. She frequently wakes up feeling stiff in the morning, with sore achy muscles and pain in the neck and spine. She has fatigue and occasional morning headaches. She had COVID pneumonia and required admission to the hospital for acute respiratory failure, was able to go home on room air. Normal bedtime is between 10:00 p.m. and midnight falling asleep quickly, waking 3-4 times at night to urinate and get a drink. She wakes the morning between 6 and 7:00 a.m.. Her weekend schedule is the same. She estimates getting 8-10 hours of sleep at night. She does take naps in the afternoon or evening. A short nap is refreshing. She is drowsy in the morning for about an hour or longer. She feels better in the evening compared to other times of day. Habits: Smoked cigarettes in the past. Caffeine 1-2 servings per day. No alcohol or recreational drugs. [facility] Past Medical History Medical History Asthma Cardiomegaly CHF (congestive heart failure) On 06/04/2020 echo diastolic noncompliance grade 1 Cholelithiasis Morbid obesity Type 2 diabetes mellitus (~06/03/20) Hemoglobin A1c was 7.4% on 06/03/2020. Surgical History Surgical History History of ankle surgery (~2001) Right ankle ORIF with subsequent hardware removal. She tells me that she has only had a couple those screws removed and still has a plate in about 9 screws left in that right ankle. History of section (~1987) History of tonsillectomy (~1977) Family History Family History Father Heart disease Diabetes mellitus Social History Social History Social History: The patient lives in [place] with her spouse and their 2 adult children 1 daughter and 1 son. 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 No alcohol or illicit substance abuse. She designates her , Salvatore Prasad, as her surrogate decision maker and she wishes to be a full code. Smoking status:
[2020-10-04 13:59] VITALS: BMI 51.5
== END 2020-09-15 09:05 | disposition home or self-care (01) ==
LOC: ANHCSM 09:04
PROVIDERS: PCP Family Medicine; Visit Provider Internal Medicine Critical Care Medicine
DX: J96.01 Acute respiratory failure with hypoxia (principal); J96.02 Acute respiratory failure with hypercapnia; I50.9 Heart failure, unspecified; G47.33 Obstructive sleep apnea (adult) (pediatric)
CPT/HCPCS: 95806

== ENCOUNTER 2020-12-27 13:13 | Outpatient (CLI) | payer OTHER, SELFPAY ==
[2020-12-27 13:05] VITALS: PULSE 92; O2SAT 94
[2020-12-27 13:10] VITALS: PULSE 102; O2SAT 85
[2020-12-27 13:15] VITALS: PULSE 104; O2SAT 86
[2020-12-27 13:20] VITALS: PULSE 106; O2SAT 88
[2020-12-27 13:25] VITALS: PULSE 103; O2SAT 90
[2020-12-27 13:40] VITALS: PULSE 91; O2SAT 93
--- NOTE | 2020-12-27 15:01 | HOMEO2EVAL ---
Evaluation was performed at [facility] Home Oxygen Evaluation RC: Home Oxygen (O2) Evaluation Start: 12/27/20 14:57 Freq: Status: Active Protocol: RPE Activity Type Activity Date Activity User E-Sign Co-Sign Detail Recorded Client Recorded Date Recorded By Document 12/27/20 13:05 DJO [email or web address] 12/27/20 15:00 DJO Document 12/27/20 13:10 DJO [email or web address] 12/27/20 15:00 DJO Document 12/27/20 13:15 DJO [email or web address] 12/27/20 15:00 DJO Document 12/27/20 13:20 DJO [email or web address] 12/27/20 15:00 DJO Document 12/27/20 13:25 DJO [email or web address] 12/27/20 15:00 DJO Document 12/27/20 13:40 DJO [email or web address] 12/27/20 15:00 DJO 12/27/20 12/27/20 12/27/20 13:05 13:10 13:15 Home O2 Evaluation Test Phase Resting Exercise Exercise Oxygen Delivery Room Air Room Air Nasal Cannula Oxygen Flow Rate (L/min) 1 Pulse Oximetry (90-100 %) 94 85 L 86 L Pulse Rate (60-100 beats/min) 92 102 H 104 H Ambulation Distance (feet) Treatment Charges O2 Evaluation - Outpatient 12/27/20 12/27/20 12/27/20 13:20 13:25 13:40 Home O2 Evaluation Test Phase Exercise Exercise Resting Oxygen Delivery Nasal Cannula Nasal Cannula Room Air Oxygen Flow Rate (L/min) 2 3 Pulse Oximetry (90-100 %) 88 L 90 93 Pulse Rate (60-100 beats/min) 106 H 103 H 91 Ambulation Distance (feet) 1,000 Treatment Charges
== END 2020-12-27 13:14 | disposition home or self-care (01) ==
LOC: ANHPFT 13:14
PROVIDERS: PCP Family Medicine; Visit Provider Nurse Practitioner Family
DX: R06.02 Shortness of breath (principal)
CPT/HCPCS: 94618

== ENCOUNTER 2021-03-09 01:10 | Inpatient (IN) | payer OTHER, SELFPAY ==
[2021-03-09] VITALS (11 sets, daily range): BP systolic 123–154; BP diastolic 63–80; PULSE 65–93; RESP 18–24; TEMP 36.2–36.8; O2SAT 92–100; BMI 52.9
--- NOTE | ~2021-03-09 | MR_ITS ---
EXAMINATION: MR MRCP wo/w con/w 3D wo ind DATE: 03/11/2021 10:47 INDICATION: Gallstone pancreatitis TECHNIQUE: Magnetic resonance imaging (MRI) of the abdomen was performed without and with 20 mL Multi nava intravenous contrast. Sequences included coronal T2-weighted SS-FSE, coronal T2-weighted FS SS- FSE, coronal T2-weighted FS FIESTA, axial T2-weighted FS FIESTA, axial T2-weighted FIESTA, sagittal T 2-weighted SS-FSE, axial T1-weighted dual-echo FSPGR, axial T2-weighted SS-FSE, axial T1-weighted LAV A, axial T2-weighted STIR FSE. Thick-slab T2-weighted FRFSE-XL images were obtained for magnetic reso nance cholangiopancreatography (MRCP). Rotating maximum intensity projection 3-D reconstructions of t he volumetric data were created by the technologist. Postcontrast sequences included a time course of axial T1-weighted LAVA. COMPARISON: CT abdomen pelvis dated 03/09/2021, MRCP dated 06/05/2020 and pelvic MRI dated 06/06/2020 FINDINGS: ABDOMEN MRI: Mild dependent atelectasis in the bilateral lung bases. Cardiomegaly. No pericardial or pleural effus ion. Liver, spleen, bilateral adrenal glands and right kidney are normal. 6 mm nonenhancing T2 hyperi ntense cyst at the lower pole of the left kidney. There is there is peripancreatic edema which appear s decreased since the prior CT consistent with acute interstitial pancreatitis. No more discrete anneliese pancreatic fluid collections. Relatively homogeneous pancreatic parenchymal enhancement with no evide nt necrosis. There are several gallstones within the partially decompressed gallbladder. There are a few scattered colonic diverticula without adjacent inflammatory change to suggest diverticulitis. Kyler dder is normal. There is approximately 1.8 cm enhancing likely submucosal fibroid projecting into the endometrial complex at the fundus of the uterus. Bilateral small typical appearing T2 hyperintense o varian cyst. No interval change in size of a 6 cm left adnexal cyst with intermediate T1 and T2 signa l. The previously seen small nodular enhancing soft tissue component consistent with neoplasm is not appreciated in the current study however assessment is limited as the lesion is poorly visualized on the coronal images at the margin of the [id number]. Trace amount of perihepatic and perisplenic as cites. Slight S-shaped curvature of the thoracolumbar spine. Normal bone marrow signal throughout. ABDOMEN MRCP: No intra or extra hepatic biliary ductal dilation. The common bile duct measures up to 5 mm in immi l diameter which is within normal limits and which tapers smoothly at the distal common bile duct wit h no evident choledocholithiasis or obstructing masses. IMPRESSION: 1. Improving acute interstitial pancreatitis. 2. Cholelithiasis without evident acute cholecystitis, choledocholithiasis or biliary ductal dilation . 3. Cardiomegaly. 4. 1.8 cm likely submucosal fibroid which projects into the endometrial complex at the fundus. 5. Bilateral adnexal cysts including a 6 cm complex left adnexal cystic lesion without evident enhanc ing soft tissue component on the current study although this is suboptimally evaluated on the margins of the [id number] and a small nodular enhancing component was evident on a prior pelvic MRI dated 06/06/2020 for which resection was recommended. Consider either surgical evaluation or at the [facility] repeat pre and postcontrast pelvic MRI. Reviewed, dictated and finalized at location A. IMPRESSION: 1. Improving acute interstitial pancreatitis. 2. Cholelithiasis without evident acute cholecystitis, choledocholithiasis or b iliary ductal dilation. 3. Cardiomegaly. 4. 1.8 cm likely submucosal fibroid which projects into the endometrial complex at the fundus. 5. Bilateral adnexal
--- NOTE | ~2021-03-09 | XR_ITS ---
EXAMINATION: XR chest 1V portable DATE: 03/10/2021 16:20 INDICATION: Asthma. TECHNIQUE: A single frontal view of the chest was obtained. COMPARISON: Chest single view 07/15/20, CT abdomen and pelvis 03/09/2021 FINDINGS: There is mild atelectasis in the lower lung zones. No pleural effusion or pneumothorax. Car diomegaly is noted. IMPRESSION: 1. Mild atelectasis in the lower lung zones. 2. Cardiomegaly. Reviewed, dictated and finalized at location A.
--- NOTE | ~2021-03-09 | XR_ITS ---
EXAMINATION: XR abdomen/kub 1V DATE: 03/10/2021 12:20 INDICATION: Abdominal pain, constipation and bloating TECHNIQUE: A supine view of the abdomen on 2 radiographs was obtained. COMPARISON: None. FINDINGS: Moderate amount of stool in the ascending and proximal transverse colon with small amounts of stool s cattered throughout the more distal colon. No dilated gas-filled bowel to suggest obstruction. Multip le phleboliths in the pelvis. IMPRESSION: 1. Nonobstructive bowel gas pattern with moderate amount of stool in the proximal colon. Reviewed, dictated and finalized at location A. IMPRESSION: 1. Nonobstructive bowel gas pattern with moderate amount of stool in the proxim al colon.
--- NOTE | ~2021-03-09 | US_ITS ---
EXAMINATION: US right upper quadrant EXAM DATE: 03/09/2021 09:33 INDICATION: Pancreatitis. TECHNIQUE: Multiple grayscale and Doppler images of the abdomen right upper quadrant were obtained (b y a technologist who performed the scan) and subsequently reviewed. Comparison is made to prior exami nation from 06/05/2020. FINDINGS: The pancreatic head and body are normal in appearance. The pancreatic tail is not visualized. Please note that acute uncomplicated pancreatitis typically does not have ultrasound findings. The liver shah s normal echogenicity and contour. There are no focal liver lesions identified. There is no eviden ce of intrahepatic biliary duct dilation. Portal venous flow was seen in the hepatopedal, normal dir ection and has normal Doppler waveform. No right-sided hydronephrosis. Common bile duct measures 5 mm, which is normal. The gallbladder wall is normal in thickness, with ex pected amount of distention. No sonographic evidence of pericholecystic fluid. Gallbladder only mil dly distended, but has hyperechoic material filling most of this lumen. There are some regions of sha dowing consistent with calcification., Cholelithiasis. Technologist performing exam reports patient did not demonstrate sonographic De La Cruz's sign. Please note that this sign is less reliable in patien ts who have received pain medication. IMPRESSION: Cholelithiasis. Reviewed, dictated and finalized at location B. IMPRESSION: Cholelithiasis.
--- NOTE | ~2021-03-09 | CT_ITS ---
EXAMINATION: CT abdomen pelvis w con INDICATION: Right upper quadrant pain TECHNIQUE: Computed tomographic images of the abdomen and pelvis were obtained after the administrati on of 100 cc of Omnipaque 350 intravenous contrast. The dose-length product (DLP) was 1536.16 mGy-cm. Automated exposure control and iterative reconstruction technique were employed. COMPARISON: 06/03/2020; MRI, 06/06/2020 FINDINGS: Minimal dependent atelectasis is present in the lung bases. The heart size is normal. The l iver, spleen, and adrenal glands are normal. Stones are present in the nondistended gallbladder. Ther e is diffuse fluid surrounding the pancreas. There is a tiny focus of gas which appears to be in the head of the pancreas. Hypoattenuating lesions in the kidneys, measuring up to 4 mm on the left, are t oo small to characterize but likely represent cysts. Again seen is an approximately 6.5 x 4.0 cm cyst ic mass of the left adnexa with slight increase in size. No pathologically enlarged abdominal or pelv ic lymph nodes are identified. There is no free intraperitoneal gas or evidence of bowel obstruction. IMPRESSION: 1. Acute pancreatitis, possibly necrotizing pancreatitis. 2. Cholelithiasis without evidence of cholecystitis. 3. Slowly enlarging cystic mass of the left adnexa which remains concerning for neoplasm given prior MRI appearance. Surgical evaluation is recommended. Reviewed, dictated and finalized at location A.
[2021-03-09 02:00] LABS: Basophils Absolute Auto 0.1 K/mm3 (0.0-0.1); Basophils Percent Auto 0.3 % (0.2-1.2); Eosinophils Absolute Auto 0.3 K/mm3 (0-0.3); Eosinophils Percent Auto 2.2 % (0-4.4); Hematocrit 43.9 % (37.0-47.0); Hemoglobin 12.9 g/dL (12.0-15.0); Immature Granulocyte Absolute 0.06 K/mm3 (0.00-0.031); Immature Granulocyte Percent A 0.4 % (0-0.5); Lymphocytes Absolute Auto 1.81 K/mm3 (0.9-3.2); Lymphocytes Percent Auto 12.7 % (18.3-44.2); Mean Corpuscular HGB Conc 29.4 g/dl (32-36); Mean Corpuscular Hemoglobin 24.9 pg (26-34); Mean Corpuscular Volume 84.7 fl (80-100); Mean Platelet Volume 9.5 fl (7.4-10.4); Monocytes Absolute Auto 1.3 K/mm3 (0.1-0.6); Monocytes Percent Auto 8.8 % (2.6-8.5); Neutrophils Absolute Auto 10.8 K/mm3 (1.3-6.7); Neutrophils Percent Auto 75.6 % (45.5-73.1); Platelet Count Result 375 k/mm3 (150-375); Red Blood Count 5.18 M/mm3 (4.2-5.4); Red Cell Distribution Width 16.3 % (11.5-14.5); White Blood Count 14.3 K/mm3 (4.5-10.0)
--- NOTE | 2021-03-09 02:02 | PC.NURSE ---
pt was 80% on room air. put pt on 3L and pt is now at 95%.
[2021-03-09 02:18] LABS: Alanine Aminotransferase 179 U/L (4-35); Albumin Level 4.1 g/dL (3.5-5.1); Alkaline Phosphatase 157 U/L (38-126); Anion Gap 13 mmol/L (8-16); Aspartate Amino Transferase 435 U/L (14-36); Bilirubin,Total 1.2 mg/dL (0.2-1.3); Blood Urea Nitrogen 14 mg/dL (7-17); Calcium 9.4 mg/dL (8.4-10.2); Carbon Dioxide 31 mmol/L (22-30); Chloride 97 mmol/L (98-107); Estimated CRCL calculation 100 ml/min; Estimated Glomerular Filt Rate > 60; Glucose 209 mg/dL (65-110); Potassium 3.8 mmol/L (3.4-5.0); Sodium 141 mmol/L (137-145)
--- NOTE | 2021-03-09 02:18 | PC.NURSE ---
multiple unsuccessful attempts at IV access by 2 RN's. asked another RN to try for access.
[2021-03-09] MEDS: MORPHINE SULFATE (*CRX) 4 MG/ML INJ IV PUSH ×4 (02:28→16:22)
[2021-03-09] MEDS: ONDANSETRON INJ 4 MG/2 ML VIAL IV PUSH (02:28)
[2021-03-09 03:02] LABS: Lipase 40000 U/L (23-300)
--- NOTE | 2021-03-09 03:34 | ED.ABDPAIN ---
HPI - Abdominal Pain General Chief Complaint: Abdominal Pain Stated Complaint: abd pain Time Seen by Provider: 03/09/21 01:12 History of Present Illness HPI narrative: Patient is a 51-year-old female who presents ER with upper abdominal pain. Epigastric and right upper quadrant radiating to her mid back. Sudden onset at 5 PM after eating some beef jerky. Patient reports no improvement in pain since then. No alleviating factors. Had similar symptoms in the past. No fevers or chills or sweats. She endorses nausea without vomiting. Related Data Home Medications Medication Instructions Recorded Confirmed potassium chloride 10 meq PO DAILY 06/03/20 12/24/20 furosemide 40 mg PO BID 07/10/20 12/24/20 Allergies Allergy/AdvReac Type Severity Reaction Status Date / Time cigarette smoke Allergy Cough Verified 03/09/21 01:55 Review of Systems Review of Systems: All systems reviewed & are unremarkable except as noted in HPI and below Constitutional: Constitutional: Denies chills, Denies fever(s) and Denies weakness ENT: Denies nasal congestion and Denies sore throat Cardiovascular: Cardiovascular: Denies chest pain, Denies rapid heart rate and Denies radiating jaw, neck or arm pain Respiratory: Respiratory: Denies cough and Denies dyspnea Gastrointestinal: Gastrointestinal: Reports abdominal pain, Denies constipation, Denies diarrhea, Reports nausea and Denies vomiting PMFSH Past Medical History Medical History Asthma Cardiomegaly CHF (congestive heart failure) On 06/04/2020 echo diastolic noncompliance grade 1 Cholelithiasis Morbid obesity Type 2 diabetes mellitus (~06/03/20) Hemoglobin A1c was 7.4% on 06/03/2020. Surgical History Surgical History History of ankle surgery (~2001) Right ankle ORIF with subsequent hardware removal. She tells me that she has only had a couple those screws removed and still has a plate in about 9 screws left in that right ankle. History of section (~1987) History of tonsillectomy (~1977) Family History Family History Father Heart disease Diabetes mellitus Social History Social History (Reviewed 12/24/20 @ 13:43 by SANDHYA Singleton Social History: The patient lives in [place] with her spouse and their 2 adult children 1 daughter and 1 son. 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 No alcohol or illicit substance abuse. She designates her , Salvatore Prasad, as her surrogate decision maker and she wishes to be a full code. Smoking status: Former smoker Alcohol intake: never Drinks per week: 1 Substance use: never Gender identity (if verbalized by the patient): Female Spiritual care concerns: No Exam Narrative: GENERAL: Well-appearing, morbidly obese with, and in mild distress. HEAD: Normocephalic, atraumatic. ENT: Mucous membranes moist. CHEST: Clear to auscultation. No respiratory distress. HEART: Regular rate and rhythm. Normal peripheral pulses. ABDOMEN: Soft, tender palpation to the epigastrium right upper quadrant with guarding, morbidly obese with protuberant abdomen. EXTREMITIES: Normal range of motion. 1+ edema. SKIN: Warm, dry, no rash. NEURO: Alert and oriented x3. PSYCH: Normal mood and affect. Course Course Emergency Course: Patient informed of results. Pain improving with morphine. Will admit for observation, will keep n.p.o. and hydrate, will also have GI consulted and obtain ultrasound. Patient may require MRCP after evaluation by GI. Vital Signs Vital signs: Vital Signs Temperature 97.2 F L 03/09/21 01:10 Pulse Rate 65 03/09/21 01:10 Respiratory Rate 22 H 03/09/21 01:10 Blood Pressure 154/74 H 03/09/21 01:10 Pulse Oximetry 92 03/09/21 01:10 Temperature 97.2 F L 03/09/21 01:10 Pu
[2021-03-09 05:58] LABS: Triglycerides 145 mg/dL (<150)
--- NOTE | 2021-03-09 06:36 | ADMGEN ---
This patient, Iris Prasad, was admitted to [facility]. Patient/family oriented to hospital policies and general routines including ID bracelet, bed and alarms, visiting hours, pain management, procedures, bathroom and other care routines, personal items, smoking policy, room service/diet, and visiting hours. Information on how to activate the Rapid Response Team has been discussed. Patient/Family are encouraged to report perceived risks to care and to ask questions if they do not understand what they are told or what they should do.
[2021-03-09] MEDS: SODIUM CHLORIDE 0.9% IV 1,000 ML 125 ML IV CONT ×3 (06:38→22:23)
[2021-03-09 08:39] LABS: Glucose Point of Care 174 mg/dl (65-105)
[2021-03-09 13:38] LABS: Glucose Point of Care 121 mg/dl (65-105)
--- NOTE | 2021-03-09 13:48 | WPDGICN ---
Assessment and Plan Assessment and plan (1) Cholelithiasis: Code(s): K80.20 - Calculus of gallbladder without cholecystitis without obstruction Status: Chronic Assessment and Plan: Patient with known gallstones and history of pancreatitis appears to have a repeat episode of acute gallstone pancreatitis. Surgery consult is indicated for cholecystectomy when she is clinically stable. (2) Acute pancreatitis: Code(s): K85.90 - Acute pancreatitis without necrosis or infection, unspecified Status: Acute Assessment and Plan: Patient with elevated lipase now with elevated LFTs suggesting gallstone pancreatitis. Plan is for MRCP tomorrow to clear the common bile duct. She may need an ERCP of stones remain in the common duct. Surgery for cholecystectomy after resolution of pancreatitis. At the present time supportive care. Will keep her NPO and lower to have clear liquids. Continue pain control as needed. Follow labs including LFTs and lipase. (3) Morbid obesity: Code(s): E66.01 - Morbid (severe) obesity due to excess calories Status: Acute (4) Type 2 diabetes mellitus: Onset Date: ~06/03/20 Code(s): E11.9 - Type 2 diabetes mellitus without complications Status: Acute GI Consult Note Consult date/time: 03/09/21 13:48 HPI: Iris Prasad is a 51 year old female presents with abdominal pain that began yesterday. She presented the emergency room was found to have profound elevation of lipase. CT scan consistent with gallstones and pancreatitis. Patient had gallstone pancreatitis in May of 2020. She was anticipated to have cholecystectomy but this been deferred not yet accomplished. Patient currently is comfortable after pain injection today. She states her gets daughter also had cholecystectomy for gallstones. Patient denies any fever. Review of Systems Review of Systems: All systems reviewed & are unremarkable except as noted in HPI and below PMFSH Past Medical History Medical History Asthma Cardiomegaly CHF (congestive heart failure) On 06/04/2020 echo diastolic noncompliance grade 1 Cholelithiasis Morbid obesity Type 2 diabetes mellitus (~06/03/20) Hemoglobin A1c was 7.4% on 06/03/2020. Surgical History Surgical History History of ankle surgery (~2001) Right ankle ORIF with subsequent hardware removal. She tells me that she has only had a couple those screws removed and still has a plate in about 9 screws left in that right ankle. History of section (~1987) History of tonsillectomy (~1977) Family History Family History Father Heart disease Diabetes mellitus Social History Social History Social History: The patient lives in [place] with her spouse and their 2 adult children 1 daughter and 1 son. 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 No alcohol or illicit substance abuse. She designates her , Salvatore Prasad, as her surrogate decision maker and she wishes to be a full code. Smoking status: Former smoker Tobacco type: cigarettes Alcohol intake: never Drinks per week: 1 Substance use: never Gender identity (if verbalized by the patient): Female Spiritual care concerns: No Meds Home Medications and Allergies Home Medications Medication Instructions Recorded Confirmed Type potassium chloride 10 meq PO DAILY 06/03/20 03/09/21 History albuterol sulfate 90 mcg/actuation 1 inh INHALATION Q4-6H PRN #18 g 06/21/20 03/09/21 Rx aerosol inhaler budesonide-formoterol HFA 160 2 puff INHALATION Q12H #10.2 g 06/21/20 03/09/21 Rx mcg-4.5 mcg/actuation aerosol inhaler furosemide 20 mg PO DAILY 07/10/20 03/09/21 History Allergies
[2021-03-09] MEDS: ALBUTEROL SULFATE (*SP) AEROSOL 1 PUFF INHALATION (14:00)
--- NOTE | 2021-03-09 16:11 | PM.IMHP ---
H&P: HPI History of Present Illness Date/Time: 03/09/21 16:11 51 y/o here for gallstone pancreatitis. She can't remember the name of her usual cook soup, but thinks it might be Dr. Ward in [place]. She says he has been watching an ovarian cyst that has been stable for quite a while. (She thought it was on her right side, however.) She also has rather lengthy menses, sometimes lasting 10-14 days each, for which he offered her a D&C. She has been avoiding seeing him, though, in the hopes of becoming menopausal. She has no lower abdominal or pelvic pain. Menses occur monthly, with 3-5 days of full flow, then several days of spotting afterward, but no true intermenstrual bleeding. Her had a vasectomy. Lost her father to COVPERI, but refuses a vaccine because she perceives the vaccine to be worse than the virus itself. Imaging demonstrated a 6.5cm cystic left adnexal mass. A pelvic MRI from 05/28 showed a similar, slightly smaller, 6 cm mass. She has no pain or discomfort in the lower abdomen or pelvis. Her last menses began 02/28/21. Chief Complaint: Abdominal pain Review of Systems Review of Systems: All systems reviewed & are unremarkable except as noted in HPI and below PMFSH Past Medical History Medical History Asthma Cardiomegaly CHF (congestive heart failure) On 06/04/2020 echo diastolic noncompliance grade 1 Cholelithiasis Morbid obesity Type 2 diabetes mellitus (~06/03/20) Hemoglobin A1c was 7.4% on 06/03/2020. Surgical History Surgical History History of ankle surgery (~2001) Right ankle ORIF with subsequent hardware removal. She tells me that she has only had a couple those screws removed and still has a plate in about 9 screws left in that right ankle. History of section (~1987) History of tonsillectomy (~1977) Family History Family History Father Heart disease Diabetes mellitus Social History Social History Social History: The patient lives in [place] with her spouse and their 2 adult children 1 daughter and 1 son. 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 No alcohol or illicit substance abuse. She designates her , Salvatore Prasad, as her surrogate decision maker and she wishes to be a full code. Smoking status: Former smoker Tobacco type: cigarettes Alcohol intake: never Drinks per week: 1 Substance use: never Gender identity (if verbalized by the patient): Female Spiritual care concerns: No Comments Past OB History: 1) for active HSV 2) induced at 35 weeks because of bleeding. Baby weighed 6#4 oz. 3) Intentional at home with a insurance billing clerk of baby weighing 9#. Meds Home Medications and Allergies Home Medications Medication Instructions Recorded Confirmed Type potassium chloride 10 meq PO DAILY 06/03/20 03/09/21 History albuterol sulfate 90 mcg/actuation 1 inh INHALATION Q4-6H PRN #18 g 06/21/20 03/09/21 Rx aerosol inhaler budesonide-formoterol HFA 160 2 puff INHALATION Q12H #10.2 g 06/21/20 03/09/21 Rx mcg-4.5 mcg/actuation aerosol inhaler furosemide 20 mg PO DAILY 07/10/20 03/09/21 History Allergies Allergy/AdvReac Type Severity Reaction Status Date / Time cigarette smoke Allergy Cough Verified 03/09/21 01:55 Vital Signs Vital Signs - 24 hr 03/09/21 01:10 03/09/21 02:31 03/09/21 03:16 Temperature 36.2 C L Pulse Rate 65 66 83 Respiratory Rate 22 H 18 18 Blood Pressure 154/74 H 141/69 H Pulse Oximetry 92 100 98 03/09/21 05:30 03/09/21 06:19 03/09/21 08:00 Temperature 36.7 C 36.8 C Pulse Rate 88 83 Respiratory Rate 20 24 H Blood Pressure 123/68 135/63 Pulse Oximetry 94 99 98 03/09/21 09:01 03/09/21 13:47 03/09/21 15:
[2021-03-09 16:18] LABS: Glucose Point of Care 122 mg/dl (65-105)
--- NOTE | 2021-03-09 18:14 | PM.IMHP ---
H&P: HPI History of Present Illness Date/Time: 03/09/21 18:14 patient is a 51-year-old female morbidly obese with BMI of 53, patient also has long history of alcohol abuse patient states until last year sees to drink heavily since then see has reduced her alcohol intake, however patient presented emergency depart with epigastric pain patient had a CT scan of abdomen shows acute pancreatitis with necrosis, cholelithiasis without acute cholecystitis, there was also incidental finding left adnexal mass, patient lipase are elevated 40,000 upon arrival, patient is being started on IV fluid and p.o. 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 Surgical History Surgical History History of ankle surgery (~2001) Right ankle ORIF with subsequent hardware removal. She tells me that she has only had a couple those screws removed and still has a plate in about 9 screws left in that right ankle. History of section (~1987) History of tonsillectomy (~1977) Family History Family History Father Heart disease Diabetes mellitus Social History Social History Social History: The patient lives in [place] with her spouse and their 2 adult children 1 daughter and 1 son. 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 No alcohol or illicit substance abuse. She designates her , Salvatore Prasad, as her surrogate decision maker and she wishes to be a full code. Smoking status: Former smoker Tobacco type: cigarettes Alcohol intake: never Drinks per week: 1 Substance use: never Gender identity (if verbalized by the patient): Female Spiritual care concerns: No Meds Home Medications and Allergies Home Medications Medication Instructions Recorded Confirmed Type potassium chloride 10 meq PO DAILY 06/03/20 03/09/21 History albuterol sulfate 90 mcg/actuation 1 inh INHALATION Q4-6H PRN #18 g 06/21/20 03/09/21 Rx aerosol inhaler budesonide-formoterol HFA 160 2 puff INHALATION Q12H #10.2 g 06/21/20 03/09/21 Rx mcg-4.5 mcg/actuation aerosol inhaler furosemide 20 mg PO DAILY 07/10/20 03/09/21 History Allergies Allergy/AdvReac Type Severity Reaction Status Date / Time cigarette smoke Allergy Cough Verified 03/09/21 01:55 Vital Signs Vital Signs - 24 hr 03/09/21 01:10 03/09/21 02:31 03/09/21 03:16 Temperature 97.2 F L Pulse Rate 65 66 83 Respiratory Rate 22 H 18 18 Blood Pressure 154/74 H 141/69 H Pulse Oximetry 92 100 98 03/09/21 05:30 03/09/21 06:19 03/09/21 08:00 Temperature 98.1 F 98.2 F Pulse Rate 88 83 Respiratory Rate 20 24 H Blood Pressure 123/68 135/63 Pulse Oximetry 94 99 98 03/09/21 09:01 03/09/21 13:47 03/09/21 15:08 Temperature 98.0 F 98.3 F Pulse Rate 77 79 80 Respiratory Rate 18 20 18 Blood Pressure 135/65 137/70 134/80 Pulse Oximetry 98 98 97 Exam Narrative: morbidly obese Patient is comfortable, NAD HEENT: eyes are clear and none icteric LUNGS:
[2021-03-09 21:17] LABS: Glucose Point of Care 113 mg/dl (65-105)
[2021-03-09] MEDS: HEPARIN SODIUM 5,000 UNITS/ML VIAL 5000 UNITS SUB-Q (22:00)
[2021-03-10] VITALS: BP 112/64; PULSE 94; RESP 20; TEMP 36.9; O2SAT 95
[2021-03-10 01:13] LABS: Glucose Point of Care 145 mg/dl (65-105)
[2021-03-10] MEDS: HEPARIN SODIUM 5,000 UNITS/ML VIAL 5000 UNITS SUB-Q ×3 (06:11→22:00)
[2021-03-10 06:27] LABS: Hematocrit 40.6 % (37.0-47.0); Hemoglobin 11.6 g/dL (12.0-15.0); Mean Corpuscular HGB Conc 28.6 g/dl (32-36); Mean Corpuscular Hemoglobin 25.2 pg (26-34); Mean Corpuscular Volume 88.1 fl (80-100); Mean Platelet Volume 9.3 fl (7.4-10.4); Platelet Count Result 296 k/mm3 (150-375); Red Blood Count 4.61 M/mm3 (4.2-5.4); Red Cell Distribution Width 16.2 % (11.5-14.5); White Blood Count 12.1 K/mm3 (4.5-10.0)
[2021-03-10 06:54] LABS: Alanine Aminotransferase 290 U/L (4-35); Albumin Level 3.7 g/dL (3.5-5.1); Alkaline Phosphatase 172 U/L (38-126); Anion Gap 9 mmol/L (8-16); Aspartate Amino Transferase 259 U/L (14-36); Bilirubin,Total 0.7 mg/dL (0.2-1.3); Blood Urea Nitrogen 9 mg/dL (7-17); Calcium 8.2 mg/dL (8.4-10.2); Carbon Dioxide 29 mmol/L (22-30); Chloride 100 mmol/L (98-107); Estimated CRCL calculation 132 ml/min; Estimated Glomerular Filt Rate > 60; Glucose 137 mg/dL (65-110); Lipase 1540 U/L (23-300); Magnesium 2.2 mg/dL (1.6-2.3); Sodium 138 mmol/L (137-145)
[2021-03-10 07:23] VITALS: BP 134/80; PULSE 75; RESP 20; TEMP 36.7; O2SAT 98
[2021-03-10] MEDS: SODIUM CHLORIDE 0.9% IV 1,000 ML 125 ML IV CONT ×2 (07:36→19:05)
[2021-03-10] MEDS: MORPHINE SULFATE (*CRX) 4 MG/ML INJ IV PUSH ×2 (07:38→16:30)
[2021-03-10 08:14] VITALS: O2SAT 96
--- NOTE | 2021-03-10 10:11 | WPDGIPROGNO ---
Progress Note: A&P Assessment and Plan (1) Acute pancreatitis: Code(s): K85.90 - Acute pancreatitis without necrosis or infection, unspecified Status: Acute Assessment and Plan: Patient with acute pancreatitis. Similar to previous presentation. Identified as having gallstones which is likely etiology for pancreatitis. Surgery consult will be obtained. MRCP today to clear the common bile duct. (2) Cholelithiasis: Code(s): K80.20 - Calculus of gallbladder without cholecystitis without obstruction Status: Chronic Assessment and Plan: Gallstones appear to be etiology for pancreatitis. Surgery consult pending. (3) Transaminitis: Code(s): R74.01 - Elevation of levels of liver transaminase levels Status: Acute Assessment and Plan: Elevated serum transaminases. Likely on the basis of pancreatitis. Given that she has gallstones she may have passed a common duct gallstone. MRCP to clear the common bile duct today. (4) Type 2 diabetes mellitus: Onset Date: ~06/03/20 Code(s): E11.9 - Type 2 diabetes mellitus without complications Status: Acute (5) Morbid obesity: Code(s): E66.01 - Morbid (severe) obesity due to excess calories Status: Acute Subjective Date/time seen: 03/10/21 10:11 Patient more comfortable today. Still some mild abdominal bloating described. Not requiring pain medications is often. Review of Systems Review of Systems: All systems reviewed & are unremarkable except as noted in HPI and below Exam Narrative: Physical exam reveals abdomen to be obese. Bowel sounds are present soft no localized tenderness at present. No organomegaly evident. Objective Data Vital Signs Vital Signs: Vital Signs - 24 hr 03/09/21 13:47 03/09/21 15:08 03/09/21 20:00 Temperature 98.0 F 98.3 F 97.9 F Pulse Rate 79 80 93 Respiratory Rate 20 18 20 Blood Pressure 137/70 134/80 125/65 Pulse Oximetry 98 97 95 03/09/21 21:45 03/10/21 00:00 03/10/21 07:23 Temperature 98.5 F 98.0 F Pulse Rate 94 75 Respiratory Rate 20 20 Blood Pressure 112/64 134/80 Pulse Oximetry 94 95 98 Intake/Output Intake/Output: Intake & Output 03/07/21 03/08/21 03/09/21 03/10/21 23:59 23:59 23:59 23:59 Intake Total 2200 1210 Balance 2200 1210 Meds/Results Medications: Active Medications Generic Name Dose Route Start Last Admin Trade Name Freq PRN Reason Stop Dose Admin Albuterol 1 puff 03/09/21 10:16 03/09/21 14:00 Albuterol Sulfate (*Sp) Aerosol 1 Puff INHALATION 1 puff Q4-6H PRN Administration Shortness Of Breath Budesonide/Formoterol Fumarate 2 puff 03/09/21 11:00 03/10/21 08:10 Budesonide/Form 160-4.5 Mcg (*Sp) INHALATION 2 puff Q12HRT LEONARDO Administration Dextrose 12.5 gm 03/09/21 13:23 Dextrose 50% 25 Gm/50 Ml Syringe IV PUSH PRN PRN Hypoglycemia Protocol Furosemide 20 mg 03/09/21 11:00 03/09/21 10:36 Furosemide 20 Mg Tablet PO Not Given DAILY LEONARDO Glucagon 1 mg 03/09/21 13:23 Glucagon For Inj 1 Mg Vial IM PRN PRN Hypoglycemia Protocol Glucose 15 gm 03/09/21 13:23 Glucose Oral Gel 15 Gm Of Glucse In 37.5 Gm Tube PO PRN PRN Hypoglycemia Protocol Heparin Sodium (Porcine) 5,000 units 03/09/21 22:00 03/10/21 06:11 Heparin Sodium 5,000 Units/Ml Vial SUB-Q 5,000 units Q8HR LEONARDO Administration Sodium Chloride 1,000 mls @ 125 mls/hr 03/09/21 05:10 03/10/21 07:36 Normal Saline Iv IV CONT 125 mls/hr .Q8H LEONARDO Administration Dextrose 1,000 mls @ 100 mls/hr 03/09/21 13:23 Dextrose 5% 1,000 Ml IVPB PRN PRN Hypoglycemia Protocol Piperacillin/Tazobactam/Dextrose 3.375 gm in 50 mls @ 100 mls/hr 03/09/21 17:00 03/10/21 06:40 Zosyn 3.375 Gm/D5w 50ml Pm IVPB Infused Q6HR LEONARDO Infusion Insulin Aspart 2 - 5 units 03/09/21 17:00 03/10/21 07:18 Insulin Aspart (*Bkc) 100 Units/Ml SUB-Q
[2021-03-10 11:12] LABS: Glucose Point of Care 112 mg/dl (65-105)
--- NOTE | 2021-03-10 11:32 | PM.CNGS ---
Assessment and Plan Assessment and plan (1) Acute pancreatitis: Code(s): K85.90 - Acute pancreatitis without necrosis or infection, unspecified Status: Acute Assessment and Plan: Recurrent acute pancreatitis, likely biliary. CT scan and ultrasound reviewed and discussed with the patient in detail. Lipase down to 1540 today and WBC trending down. She is clinically improving with no complaints of abdominal pain today. LFTs are trending down. GI following and ordered an MRCP. If any evidence of choledocholithiasis, will await GI's recommendations regarding need for ERCP. Due to the patient's morbid obesity, significant pulmonary history, and other co-morbidities, the patient would be a high risk surgical candidate. We discussed these risks and the details of a laparoscopic cholecystectomy, possible open. Description of the procedure, risks, benefits, expected outcomes, and expected recovery were discussed in detail. We will consult Pulmonology for a pre-operative evaluation. Continue to treat the acute pancreatitis with IV fluids, bowel rest, and analgesics. Could consider allowing clear liquids after MRCP is obtained. Thank you for allowing us to see the patient in consultation and we will continue to follow along with you. (2) Cholelithiasis: Code(s): K80.20 - Calculus of gallbladder without cholecystitis without obstruction Status: Chronic Assessment and Plan: See plan above. (3) Transaminitis: Code(s): R74.01 - Elevation of levels of liver transaminase levels Status: Acute Assessment and Plan: AST, ALT, and alk phos elevated. Trending down. GI following and ordered an MRCP today. Continue to monitor labs. (4) Morbid obesity: Code(s): E66.01 - Morbid (severe) obesity due to excess calories Status: Acute Assessment and Plan: Increases risks of surgery. Discussed the importance of weight loss even following any surgical intervention. (5) Hypoxia: Code(s): R09.02 - Hypoxemia Status: Acute Assessment and Plan: Currently requiring 3L O2 with a history of VARINDER, asthma, and likely OHS. We will consult Pulmonology to pre-operatively evaluate the patient. Appreciate their recommendations. (6) Obstructive sleep apnea: Code(s): G47.33 - Obstructive sleep apnea (adult) (pediatric) Status: Acute (7) Asthma: Qualifiers: Asthma severity: unspecified severity Asthma persistence: persistent Asthma complication type: with acute exacerbation Qualified Code(s): J45.901 - Unspecified asthma with (acute) exacerbation Code(s): J45.909 - Unspecified asthma, uncomplicated Status: Acute Assessment and Plan: Discussed that she is at a higher risk for pulmonary complications with surgery and could require more invasive respiratory measures after surgery if there are any issues. (8) Type 2 diabetes mellitus: Onset Date: ~06/03/20 Code(s): E11.9 - Type 2 diabetes mellitus without complications Status: Acute Assessment and Plan: Increases risks. (9) CHF (congestive heart failure): Code(s): I50.9 - Heart failure, unspecified Status: Chronic (10) Adnexal cyst: Code(s): N94.9 - Unspecified condition associated with female genital organs and menstrual cycle Status: Acute Assessment and Plan: Patient follows a [facility] in [place]. Gynecology was consulted here and recommended f/u as an outpatient with her [facility] after discharge. Additional Plan I have discussed the patient's case and plan of care with Dr. Mercado. History of Present Illness Consult details Consult date: 03/10/21 Reason for consult: gallstones (Cholelithiasis, recurrent acute pancreatitis) Requesting physician: Rimma Tobar MD Narrative: This is a 51-year-old morbidly obese female with a past medical history significant for type 2 diabetes mellitus, congestive heart failure, asthma, and obstruc
[2021-03-10] MEDS: ONDANSETRON INJ 4 MG/2 ML VIAL IV PUSH (11:38)
[2021-03-10 15:16] VITALS: BP 134/70; PULSE 74; RESP 18; TEMP 36.7; O2SAT 98
--- NOTE | 2021-03-10 15:20 | PM.IMPN ---
Progress Note: A&P Assessment and Plan (1) Acute pancreatitis: Code(s): K85.90 - Acute pancreatitis without necrosis or infection, unspecified Status: Acute Assessment and Plan: 03/09/21 18:14 patient is a 51-year-old female morbidly obese with BMI of 53, patient also has long history of alcohol abuse patient states until last year sees to drink heavily since then see has reduced her alcohol intake, however patient presented emergency depart with epigastric pain patient had a CT scan of abdomen shows acute pancreatitis with necrosis, cholelithiasis without acute cholecystitis, there was also incidental finding left adnexal mass, patient lipase are elevated 40,000 upon arrival, patient is being started on IV fluid and p.o. and patient is seen by GI recommending MRCP tomorrow and further recommendation to follow, will continue NPO IVF, pain management and monitor lipase level, patient seen by Gynecology for left adnexal mass no surgical intervention is required emergently recommended to follow-up with her gum mixer, will continue to monitor and further recommendation to follow 03/10 patient remains clinically stable her lipase is trended down to 1540 today compared over 40,000 upon arrival, patient denies any abdominal pain nausea or vomiting, seen by GI recommending MRCP to further evaluate G scheduled for tomorrow, we have also consulted surgery service for possible cholecystectomy once clinically stable, patient last drink was on February 20 patient is out of DT precaution, will continue to monitor once clinically stable will have PT OT evaluate the patient. (2) Adnexal cyst: Code(s): N94.9 - Unspecified condition associated with female genital organs and menstrual cycle Status: Acute Assessment and Plan: incidental finding on CT scan clinically stable seen by Gynecology recommending to follow-up her own gynecology (3) Morbid obesity: Code(s): E66.01 - Morbid (severe) obesity due to excess calories Status: Acute Assessment and Plan: will have dietitian consult the patient further recommendation to follow. Subjective Date/time seen: 03/10/21 15:20 03/09 patient is a 51-year-old female morbidly obese with BMI of 53, patient also has long history of alcohol abuse patient states until last year sees to drink heavily since then see has reduced her alcohol intake, however patient presented emergency depart with epigastric pain patient had a CT scan of abdomen shows acute pancreatitis with necrosis, cholelithiasis without acute cholecystitis, there was also incidental finding left adnexal mass, patient lipase are elevated 40,000 upon arrival, patient is being started on IV fluid and p.o. and patient is seen by GI recommending MRCP tomorrow and further recommendation to follow, will continue NPO IVF, pain management and monitor lipase level, patient seen by Gynecology for left adnexal mass no surgical intervention is required emergently recommended to follow-up with her gum mixer, will continue to monitor and further recommendation to follow. 03/10 patient remains clinically stable her lipase is trended down to 1540 today compared over 40,000 upon arrival, patient denies any abdominal pain nausea or vomiting, seen by GI recommending MRCP to further evaluate G scheduled for tomorrow, we have also consulted surgery service for possible cholecystectomy once clinically stable, patient last drink was on February 20 patient is out of DT precaution, will continue to monitor once clinically stable will have PT OT evaluate the patient. Review of Systems Review of Systems: All systems reviewed & are unremarkable except as noted in HPI and below Exam Narrative: morbidly obese Patient is comfortable, NAD HEENT: eyes are clear and none icteric LUNGS: normal respiratory effort ABD: distended describe pain epigastric Lower extremities: no edema SKIN: nonjaundiced Neuro: grossly intact normal respiratory ef
--- NOTE | 2021-03-10 15:54 | PM.CNPUL ---
Assessment and Plan Assessment and plan (1) Asthma: Qualifiers: Asthma severity: unspecified severity Asthma persistence: persistent Asthma complication type: with acute exacerbation Qualified Code(s): J45.901 - Unspecified asthma with (acute) exacerbation Code(s): J45.909 - Unspecified asthma, uncomplicated Status: Acute Assessment and Plan: Patient has a history of asthma and she is currently well controlled Per her ACT score and per the 2020 [facility] symptom assessment on Symbicort 160-4.5 at 2 puffs b.i.d.. currently she has no wheezes. Recommend to continue Symbicort 160-4.5 at 2 puffs b.i.d. and rescue albuterol as needed. I will check portable chest x-ray to exclude any current pathology as well as to serve as a baseline should she have difficulties postoperatively. Patient has a history of asthma that is well controlled, morbid obesity and obstructive sleep apnea which is untreated at this time. Patient can undergo general anesthesia at this time as there are no absolute contraindications to general anesthesia. She has an increased risk for pulmonary complications including pneumonia, asthma exacerbation, hypercarbic respiratory failure from these conditions. Anesthesia should be made aware that she has severe ups untreated obstructive sleep apnea and needs to be monitored closely in the postoperative phase. If patient should have difficulty inhaling her medications postoperatively from abdominal pain she can be switched to nebulized budesonide 500 mcg b.i.d. and albuterol 2.5 mg nebulized q.4 hours. Patient should sit up in a chair and ambulate as early as possible for good pulmonary hygiene postoperatively. Call with questions (2) Obstructive sleep apnea: Code(s): G47.33 - Obstructive sleep apnea (adult) (pediatric) Status: Acute Assessment and Plan: Patient with severe untreated obstructive sleep apnea who is awaiting an outpatient CPAP titration. In the meantime I will place patient on continuous pulse oximetry and her nasal cannula oxygen should be tighter to maintain her saturations greater than 90%. As mentioned above anesthesia should be made aware of her severe obstructive sleep apnea so that she can be monitored in the postoperative phase for hypercarbic respiratory failure and obstructive sleep apnea events. History of Present Illness History of Present Illness Consult date: 03/10/21 Requesting physician: Viri Taveras FNP Reason for consult: other (Pre-op clearance) Chief complaint: Pancreatitis Narrative: This is a new Pulmonary consult for preoperative clearance. 51-year-old woman followed in the Pulmonary Clinic in last seen on 12/24/2020 with a history of asthma, hypoxemic respiratory failure requiring 3 L with activity and none at rest, morbid obesity, severe obstructive sleep apnea with an AHI of 98 who was awaiting a CPAP titration study presents with gallstone pancreatitis. Patient last seen on 12/24 20 and at that time her asthma was well controlled on Symbicort 160-4.5 at 2 puffs b.i.d. and rescue albuterol. Patient has remained well controlled and is now admitted with gallstone pancreatitis. Patient states that she has had no recent exacerbations since her last office visit and has been intermittently taking the the Symbicort. She has been taking it for the last few weeks and now states that she currently has minimal chest tightness, no wheezing no cough minimal phlegm production that is unchanged for her, no fever no chills no rigors. Currently she is on Symbicort 160-4.5 at 2 puffs q.12 hours and rescue albuterol. She is well controlled with an ACT score of 23, maximum score is 25. And per [facility] 2020 symptom assessment she is well controlled with daytime asthma symptoms less than twice a week, no nocturnal awakenings due to asthma, short-acting beta agonists once a week and no activity limitations due to her asthma. She has been maintained
[2021-03-10 16:14] LABS: Glucose Point of Care 106 mg/dl (65-105)
[2021-03-10] MEDS: ALBUTEROL SULFATE (*SP) AEROSOL 1 PUFF INHALATION (16:49)
[2021-03-10 20:00] VITALS: BP 123/68; PULSE 81; RESP 20; TEMP 36.9; O2SAT 98
[2021-03-10 21:10] LABS: Glucose Point of Care 110 mg/dl (65-105)
[2021-03-10] MEDS: MORPHINE SULFATE (*CRX) 2 MG/ML INJ IV PUSH (22:31)
[2021-03-11] MEDS: SODIUM CHLORIDE 0.9% IV 1,000 ML 125 ML IV CONT ×3 (04:09→22:58)
[2021-03-11] MEDS: HEPARIN SODIUM 5,000 UNITS/ML VIAL 5000 UNITS SUB-Q ×3 (06:07→21:13)
[2021-03-11 06:18] LABS: Hematocrit 37.9 % (37.0-47.0); Hemoglobin 10.7 g/dL (12.0-15.0); Mean Corpuscular HGB Conc 28.2 g/dl (32-36); Mean Corpuscular Hemoglobin 25.4 pg (26-34); Mean Corpuscular Volume 89.8 fl (80-100); Mean Platelet Volume 9.5 fl (7.4-10.4); Platelet Count Result 267 k/mm3 (150-375); Red Blood Count 4.22 M/mm3 (4.2-5.4); Red Cell Distribution Width 16.3 % (11.5-14.5); White Blood Count 11.8 K/mm3 (4.5-10.0)
[2021-03-11 06:31] LABS: Alanine Aminotransferase 189 U/L (4-35); Albumin Level 3.5 g/dL (3.5-5.1); Alkaline Phosphatase 162 U/L (38-126); Anion Gap 4 mmol/L (8-16); Aspartate Amino Transferase 90 U/L (14-36); Bilirubin,Total 0.7 mg/dL (0.2-1.3); Blood Urea Nitrogen 7 mg/dL (7-17); Calcium 8.1 mg/dL (8.4-10.2); Carbon Dioxide 33 mmol/L (22-30); Chloride 101 mmol/L (98-107); Estimated CRCL calculation 132 ml/min; Estimated Glomerular Filt Rate > 60; Glucose 115 mg/dL (65-110); Lipase 268 U/L (23-300); Magnesium 2.2 mg/dL (1.6-2.3); Sodium 138 mmol/L (137-145)
[2021-03-11 08:00] VITALS: BP 132/68; PULSE 77; RESP 18; TEMP 36.9; O2SAT 96
[2021-03-11] MEDS: ALBUTEROL SULFATE (*SP) AEROSOL 1 PUFF INHALATION (09:40)
--- NOTE | 2021-03-11 10:26 | PM.PNGS ---
Progress Note: A&P Assessment and Plan (1) Biliary acute pancreatitis: Code(s): K85.10 - Biliary acute pancreatitis without necrosis or infection Status: Resolved Assessment and Plan: pancreatitis resolved. Await MRCP regarding possible common bile duct stones. Patient will eventually need laparoscopic cholecystectomy probably with intraoperative cholangiogram. This can be done next week. If patient is stable and ready for discharge by other specialists, she could go home this weekend and be readmitted for her surgery next week. I discussed the surgery of laparoscopic cholecystectomy in detail. We would plan to keep her overnight following the surgery and monitor her carefully because of her significant pulmonary comorbidities. Pulmonary consultation appreciated. I discussed the possibility of postoperative mechanical ventilation and ICU stay. I explained why laparoscopic cholecystectomy is indicated. All questions were answered. Await MRCP and further plans. (2) Adnexal cyst: Code(s): N94.9 - Unspecified condition associated with female genital organs and menstrual cycle Status: Chronic Assessment and Plan: Dr. Cornelius's note appreciated. This is been followed along time by patient's print line tailer. It has been stable and is not a current concern. (3) Obstructive sleep apnea: Code(s): G47.33 - Obstructive sleep apnea (adult) (pediatric) Status: Chronic (4) Asthma: Qualifiers: Asthma severity: unspecified severity Asthma persistence: persistent Asthma complication type: with acute exacerbation Qualified Code(s): J45.901 - Unspecified asthma with (acute) exacerbation Code(s): J45.909 - Unspecified asthma, uncomplicated Status: Chronic Assessment and Plan: Pulmonary consultation and recommendations appreciated. (5) Morbid obesity: Code(s): E66.01 - Morbid (severe) obesity due to excess calories Status: Chronic Subjective Subjective Date/Time Seen: 03/11/21 10:26 Patient reports: no new complaints, feels better, pain is less and afebrile Review of Systems Review of Systems: All systems reviewed & are unremarkable except as noted in HPI and below Cardiovascular: Cardiovascular: Denies chest pain and Denies dyspnea Respiratory: Respiratory: Denies cough and Denies dyspnea Neurologic: Denies confusion and Denies headache(s) Exam Const: General: comfortable and no acute distress; No confusion Orientation/consciousness: patient oriented x3 and No confusion GI: Inspection: obesity GI Palp: Yes Soft to palpation, No Tenderness to palpation present (GI), No Guarding due to palpation present (GI), No Palpable mass present and No Rebound tenderness present Auscultation: normal bowel sounds Neuro: General: patient oriented x3, no focal motor deficits and No confusion Extrem: General: no calf tenderness and no edema Psych: Affect: normal affect Insight: Good insight present (Psych) Judgement: Good judgement present (Psych) Objective Data Vital Signs Vital Signs: Vital Signs - 24 hr 03/10/21 15:16 03/10/21 20:00 03/11/21 08:00 Temperature 36.7 C 36.9 C 36.9 C Pulse Rate 74 81 77 Respiratory Rate 18 20 18 Blood Pressure 134/70 123/68 132/68 Pulse Oximetry 98 98 96 Intake/Output Intake/Output: Intake & Output 03/08/21 03/09/21 03/10/21 03/11/21 23:59 23:59 23:59 23:59 Intake Total 2200 2460 1300 Balance 2200 2460 1300 Meds/Results Medications: Active Medications Generic Name Dose Route Start Last Admin Trade Name Freq PRN Reason Stop Dose Admin Albuterol 1 puff 03/09/21 10:16 03/11/21 09:40 Albuterol Sulfate (*Sp) Aerosol 1 Puff INHALATION 1 puff Q4-6H PRN Administration Shortness Of Breath Bisacodyl 10 mg 03/10/21 15:23 Bisacodyl 10 Mg Suppository RECTAL QAM PRN Constipation Budesonide/Formoterol Fumarate 2 puff 03/09/21 11:00 03/11/21 09:41 Budesonid
[2021-03-11] MEDS: MORPHINE SULFATE (*CRX) 2 MG/ML INJ IV PUSH (10:58)
[2021-03-11 11:36] LABS: Glucose Point of Care 105 mg/dl (65-105)
--- NOTE | 2021-03-11 11:54 | PM.IMPN ---
Progress Note: A&P Assessment and Plan (1) Acute pancreatitis: Code(s): K85.90 - Acute pancreatitis without necrosis or infection, unspecified Status: Deleted Assessment and Plan: 03/11/21 11:54 03/09 patient is a 51-year-old female morbidly obese with BMI of 53, patient also has long history of alcohol abuse patient states until last year sees to drink heavily since then see has reduced her alcohol intake, however patient presented emergency depart with epigastric pain patient had a CT scan of abdomen shows acute pancreatitis with necrosis, cholelithiasis without acute cholecystitis, there was also incidental finding left adnexal mass, patient lipase are elevated 40,000 upon arrival, patient is being started on IV fluid and p.o. and patient is seen by GI recommending MRCP tomorrow and further recommendation to follow, will continue NPO IVF, pain management and monitor lipase level, patient seen by Gynecology for left adnexal mass no surgical intervention is required emergently recommended to follow-up with her senior network systems engineer, will continue to monitor and further recommendation to follow 03/10 patient remains clinically stable her lipase is trended down to 1540 today compared over 40,000 upon arrival, patient denies any abdominal pain nausea or vomiting, seen by GI recommending MRCP to further evaluate G scheduled for tomorrow, we have also consulted surgery service for possible cholecystectomy once clinically stable, patient last drink was on February 20 patient is out of DT precaution, will continue to monitor once clinically stable will have PT OT evaluate the patient. 03/11 patient is clinically stable her lipase have trended down to 268 today compared over 40,000 upon arrival, patient does complaint abdominal but denies any nausea or vomiting, patient has not had any BM for few days KUB showed constipation will give the patient ducolax suppository, patient is scheduled for MRCP today, will follow up and further recommendation to follow, patient was seen by surgery service for cholelithiasis recommending laparoscopy cholecystectomy probably with intraoperative cholangiogram this can be plan as an outpatient or if the patient remains in hospital can be done next week. Will continue to monitor and further recommendation to follow. (2) Adnexal cyst: Code(s): N94.9 - Unspecified condition associated with female genital organs and menstrual cycle Status: Chronic Assessment and Plan: incidental finding on CT scan clinically stable seen by Gynecology recommending to follow-up her own gynecology (3) Morbid obesity: Code(s): E66.01 - Morbid (severe) obesity due to excess calories Status: Chronic Assessment and Plan: will have dietitian consult the patient further recommendation to follow. Subjective Date/time seen: 03/11/21 11:54 03/09 patient is a 51-year-old female morbidly obese with BMI of 53, patient also has long history of alcohol abuse patient states until last year sees to drink heavily since then see has reduced her alcohol intake, however patient presented emergency depart with epigastric pain patient had a CT scan of abdomen shows acute pancreatitis with necrosis, cholelithiasis without acute cholecystitis, there was also incidental finding left adnexal mass, patient lipase are elevated 40,000 upon arrival, patient is being started on IV fluid and p.o. and patient is seen by GI recommending MRCP tomorrow and further recommendation to follow, will continue NPO IVF, pain management and monitor lipase level, patient seen by Gynecology for left adnexal mass no surgical intervention is required emergently recommended to follow-up with her senior network systems engineer, will continue to monitor and further recommendation to follow 03/10 patient remains clinically stable her lipase is trended down to 1540 today compared over 40,000 upon arrival, patient denies any abdominal pain nausea or vomiting, seen by GI recommending MR
--- NOTE | 2021-03-11 13:13 | WPDGIPROGNO ---
Progress Note: A&P Assessment and Plan (1) Cholelithiasis: Code(s): K80.20 - Calculus of gallbladder without cholecystitis without obstruction Status: Acute Assessment and Plan: Gallstones are noted on exam appear to be etiology for pancreatitis. MRCP suggests clear common bile duct. Appreciate surgery insight anticipate cholecystectomy under their direction when the timing and clinical condition allows. (2) Acute pancreatitis: Code(s): K85.90 - Acute pancreatitis without necrosis or infection, unspecified Status: Acute Assessment and Plan: Acute pancreatitis improving clinically. Lipase has resolved LFTs are improving. Plan to advance diet slowly. Low-fat diet advised. Alcohol avoidance strongly encourage. (3) Morbid obesity: Code(s): E66.01 - Morbid (severe) obesity due to excess calories Status: Chronic Assessment and Plan: Patient morbidly obese which will undoubtedly complicates surgery. Weight loss long-term strongly encouraged. Subjective Date/time seen: 03/11/21 13:13 Patient alert more comfortable today. Less abdominal pain. Review of Systems Review of Systems: All systems reviewed & are unremarkable except as noted in HPI and below Exam Narrative: Physical exam reveals patient be alert. Comfortable at rest. HEENT exam unremarkable. She is anicteric. Lungs are clear. Heart without murmur. Abdomen is obese. Minimal tenderness today. Objective Data Vital Signs Vital Signs: Vital Signs - 24 hr 03/10/21 15:16 03/10/21 20:00 03/11/21 08:00 Temperature 98.0 F 98.4 F 98.4 F Pulse Rate 74 81 77 Respiratory Rate 18 20 18 Blood Pressure 134/70 123/68 132/68 Pulse Oximetry 98 98 96 Intake/Output Intake/Output: Intake & Output 03/08/21 03/09/21 03/10/21 03/11/21 23:59 23:59 23:59 23:59 Intake Total 2200 2460 1340 Balance 2200 2460 1340 Meds/Results Medications: Active Medications Generic Name Dose Route Start Last Admin Trade Name Freq PRN Reason Stop Dose Admin Albuterol 1 puff 03/09/21 10:16 03/11/21 09:40 Albuterol Sulfate (*Sp) Aerosol 1 Puff INHALATION 1 puff Q4-6H PRN Administration Shortness Of Breath Bisacodyl 10 mg 03/10/21 15:23 Bisacodyl 10 Mg Suppository RECTAL QAM PRN Constipation Budesonide/Formoterol Fumarate 2 puff 03/09/21 11:00 03/11/21 09:41 Budesonide/Form 160-4.5 Mcg (*Sp) INHALATION 2 puff Q12HRT LEONARDO Administration Dextrose 12.5 gm 03/09/21 13:23 Dextrose 50% 25 Gm/50 Ml Syringe IV PUSH PRN PRN Hypoglycemia Protocol Furosemide 20 mg 03/09/21 11:00 03/09/21 10:36 Furosemide 20 Mg Tablet PO Not Given DAILY LEONARDO Glucagon 1 mg 03/09/21 13:23 Glucagon For Inj 1 Mg Vial IM PRN PRN Hypoglycemia Protocol Glucose 15 gm 03/09/21 13:23 Glucose Oral Gel 15 Gm Of Glucse In 37.5 Gm Tube PO PRN PRN Hypoglycemia Protocol Heparin Sodium (Porcine) 5,000 units 03/09/21 22:00 03/11/21 06:07 Heparin Sodium 5,000 Units/Ml Vial SUB-Q 5,000 units Q8HR LEONARDO Administration Sodium Chloride 1,000 mls @ 125 mls/hr 03/09/21 05:10 03/11/21 04:09 Normal Saline Iv IV CONT 125 mls/hr .Q8H LEONARDO Administration Dextrose 1,000 mls @ 100 mls/hr 03/09/21 13:23 Dextrose 5% 1,000 Ml IVPB PRN PRN Hypoglycemia Protocol Piperacillin/Tazobactam/Dextrose 3.375 gm in 50 mls @ 100 mls/hr 03/09/21 17:00 03/11/21 12:12 Zosyn 3.375 Gm/D5w 50ml Pm IVPB Infused Q6HR LEONARDO Infusion Insulin Aspart 2 - 5 units 03/09/21 17:00 03/11/21 11:35 Insulin Aspart (*Bkc) 100 Units/Ml SUB-Q Not Given TIDWM [facility] Protocol Morphine Sulfate 2 mg 03/10/21 17:19 03/11/21 10:58 Morphine Sulfate (*Crx) 2 Mg/Ml Inj IV PUSH 2 mg Q4H PRN Administration Pain Rated 7-10 Ondansetron HCl 4 mg 03/09/21 05:07 03/10/21 11:38 Ondansetron Inj 4 Mg/2 Ml Vial IV PUSH 4 mg
[2021-03-11 16:00] VITALS: BP 132/57; PULSE 78; RESP 20; TEMP 37.1; O2SAT 97
[2021-03-11 16:52] LABS: Glucose Point of Care 165 mg/dl (65-105)
[2021-03-11 20:00] VITALS: PULSE 74; O2SAT 99
[2021-03-11 21:09] LABS: Glucose Point of Care 170 mg/dl (65-105)
[2021-03-11 21:25] VITALS: O2SAT 100
[2021-03-11 22:00] VITALS: O2SAT 98
[2021-03-12] VITALS: BP 135/82; PULSE 73; RESP 16; TEMP 36.7; O2SAT 97
[2021-03-12] MEDS: MORPHINE SULFATE (*CRX) 2 MG/ML INJ IV PUSH (00:43)
[2021-03-12 06:13] LABS: Hematocrit 35.2 % (37.0-47.0); Mean Corpuscular HGB Conc 28.4 g/dl (32-36); Mean Corpuscular Hemoglobin 24.8 pg (26-34); Mean Corpuscular Volume 87.3 fl (80-100); Mean Platelet Volume 9.3 fl (7.4-10.4); Platelet Count Result 268 k/mm3 (150-375); Red Blood Count 4.03 M/mm3 (4.2-5.4); Red Cell Distribution Width 16.3 % (11.5-14.5); White Blood Count 10.8 K/mm3 (4.5-10.0)
[2021-03-12] MEDS: HEPARIN SODIUM 5,000 UNITS/ML VIAL 5000 UNITS SUB-Q (06:25)
[2021-03-12 06:27] LABS: Alanine Aminotransferase 130 U/L (4-35); Albumin Level 3.4 g/dL (3.5-5.1); Alkaline Phosphatase 151 U/L (38-126); Anion Gap 3 mmol/L (8-16); Aspartate Amino Transferase 55 U/L (14-36); Bilirubin,Total 0.7 mg/dL (0.2-1.3); Blood Urea Nitrogen 6 mg/dL (7-17); Calcium 8.1 mg/dL (8.4-10.2); Carbon Dioxide 34 mmol/L (22-30); Chloride 99 mmol/L (98-107); Estimated CRCL calculation 156 ml/min; Estimated Glomerular Filt Rate > 60; Glucose 121 mg/dL (65-110); Lipase 110 U/L (23-300); Magnesium 2.2 mg/dL (1.6-2.3); Sodium 136 mmol/L (137-145)
[2021-03-12 08:00] VITALS: BP 144/82; PULSE 76; PULSE 78; RESP 20; TEMP 36.6; O2SAT 97
[2021-03-12 08:26] LABS: Glucose Point of Care 122 mg/dl (65-105)
--- NOTE | 2021-03-12 09:03 | WPDGIPROGNO ---
Progress Note: A&P Assessment and Plan (1) Acute pancreatitis: Code(s): K85.90 - Acute pancreatitis without necrosis or infection, unspecified Status: Acute Assessment and Plan: clinically better, also liver enzymes trending down and tolerating low fat diet she can go home and surgery is planning cholecystectomy in few days she had previous history of alcohol abuse but not longer drinking (2) Cholelithiasis: Code(s): K80.20 - Calculus of gallbladder without cholecystitis without obstruction Status: Acute Assessment and Plan: surgery on board, will need cholecystectomy MRCP without bile duct stone (3) Elevated liver enzymes: Code(s): R74.8 - Abnormal levels of other serum enzymes Status: Acute Assessment and Plan: trending down (4) Morbid obesity: Code(s): E66.01 - Morbid (severe) obesity due to excess calories Status: Chronic (5) Obstructive sleep apnea: Code(s): G47.33 - Obstructive sleep apnea (adult) (pediatric) Status: Chronic (6) Type 2 diabetes mellitus: Onset Date: ~06/03/20 Code(s): E11.9 - Type 2 diabetes mellitus without complications Status: Acute Subjective Date/time seen: 03/12/21 09:03 Interval history: she is doing better and having cereal with milk for breakfast, no more pain only gas, no nausea. Review of Systems Review of Systems: All systems reviewed & are unremarkable except as noted in HPI and below Exam Const: General: comfortable and no acute distress Nutritional Appearance: obese HENMT: General nose exam: Normal nares present Eyes: General: appearance normal, both eyes and all related structures Neck: Neck: no JVD Resp: Auscultation: clear to auscultation bilaterally Cardio: Rate: regular rate Rhythm: regular rhythm GI: Inspection: non-distended GI Palp: Yes Soft to palpation and No Guarding due to palpation present (GI) Auscultation: normal bowel sounds Skin: General skin exam: normal color Neuro: Speech: normal speech Motor exam (neuro): Normal motor muscle tone present throughout Extrem: General: normal to inspection Psych: Mental Status: mental status grossly normal Objective Data Vital Signs Vital Signs: Vital Signs - 24 hr 03/11/21 16:00 03/11/21 20:00 03/11/21 21:25 Temperature 98.8 F Pulse Rate 78 74 Respiratory Rate 20 Blood Pressure 132/57 L Pulse Oximetry 97 99 100 03/11/21 22:00 03/12/21 00:00 Temperature 98.0 F Pulse Rate 73 Respiratory Rate 16 Blood Pressure 135/82 Pulse Oximetry 98 97 Intake/Output Intake/Output: Intake & Output 03/09/21 03/10/21 03/11/21 03/12/21 23:59 23:59 23:59 23:59 Intake Total 2200 2460 5280 2200 Output Total 550 700 Balance 2200 2460 4730 1500 Meds/Results Medications: Active Medications Generic Name Dose Route Start Last Admin Trade Name Freq PRN Reason Stop Dose Admin Albuterol 1 puff 03/09/21 10:16 03/11/21 09:40 Albuterol Sulfate (*Sp) Aerosol 1 Puff INHALATION 1 puff Q4-6H PRN Administration Shortness Of Breath Bisacodyl 10 mg 03/10/21 15:23 Bisacodyl 10 Mg Suppository RECTAL QAM PRN Constipation Budesonide/Formoterol Fumarate 2 puff 03/09/21 11:00 03/11/21 22:08 Budesonide/Form 160-4.5 Mcg (*Sp) INHALATION 2 puff Q12HRT LEONARDO Administration Dextrose 12.5 gm 03/09/21 13:23 Dextrose 50% 25 Gm/50 Ml Syringe IV PUSH PRN PRN Hypoglycemia Protocol Furosemide 20 mg 03/09/21 11:00 03/09/21 10:36 Furosemide 20 Mg Tablet PO Not Given DAILY LEONARDO Glucagon 1 mg 03/09/21 13:23 Glucagon For Inj 1 Mg Vial IM PRN PRN Hypoglycemia Protocol Glucose 15 gm 03/09/21 13:23 Glucose Oral Gel 15 Gm Of Glucse In 37.5 Gm Tube PO PRN PRN Hypoglycemia Protocol Heparin Sodium (Porcine) 5,000 units 03/09/21 22:00 03/12/21 06:25 Heparin Sodium 5,000 Units/Ml Vial SUB-Q 5,000 uni
--- NOTE | 2021-03-12 11:37 | PCNFU ---
Nutrition Follow-Up Complete: Inadequate oral intake related to pancreatitis as evidenced by NPO status. Goal: Patient to meet estimated nutritional needs. Patient is progressing towards goal. No new goal at this time. Pt current nutrition is low fat and diabetic consistent carbohydrate diet. Last recorded weight is 139.8 kg. Recommend re-weighing patient prior to discharge. Bowel Motility: + BM 03/11/2021 Labs Reviewed: Hgb 10.0, Hct 35.2, Alb 3.4, Na 136, BUN 6, Cr 0.5, Glu 121 Meds Noted: Albuterol, Lasix Tablet, Glucagon, Novolog, Kcl Tablet, Heparin Sodium, Glucose, Bisacodyl Additional Notes: Checked in with patient. Her diet has now advanced and she is consuming 100% of meals ordered. She has no nutritional questions nor concerns. I provided her with education on a low-fat diet and left her with a handout regarding the information we discussed. Follow up every 7 days.
[2021-03-12 12:04] LABS: Glucose Point of Care 143 mg/dl (65-105)
--- NOTE | 2021-03-12 13:35 | PM.DS ---
DS: Admitting Diagnosis Admitting Diagnosis abdominal pain DS: Discharge Diagnosis Discharge Diagnosis (1) Acute pancreatitis: Qualifiers: Acute pancreatitis complication: no infection or necrosis Pancreatitis type: biliary Qualified Code(s): K85.10 - Biliary acute pancreatitis without necrosis or infection Code(s): K85.90 - Acute pancreatitis without necrosis or infection, unspecified Status: Deleted Assessment and Plan: Resolved. f/u for outpatient cholecystectomy (2) Adnexal cyst: Code(s): N94.9 - Unspecified condition associated with female genital organs and menstrual cycle Status: Chronic Assessment and Plan: incidental finding on CT scan clinically stable seen by Gynecology recommending to follow-up her own gynecology (3) Morbid obesity: Code(s): E66.01 - Morbid (severe) obesity due to excess calories Status: Chronic Assessment and Plan: will have dietitian consult the patient further recommendation to follow. (4) Elevated liver enzymes: Code(s): R74.8 - Abnormal levels of other serum enzymes Status: Acute Assessment and Plan: Due to biliary pancreatitis (5) Cholelithiasis: Qualifiers: Biliary obstruction: without biliary obstruction Cholecystitis presence: without cholecystitis Cholelithiasis location: gallbladder Qualified Code(s): K80.20 - Calculus of gallbladder without cholecystitis without obstruction Code(s): K80.20 - Calculus of gallbladder without cholecystitis without obstruction Status: Acute Assessment and Plan: To schedule lap-nabil with Dr. 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 Code(s): E11.9 - Type 2 diabetes mellitus without complications Status: Acute Assessment and Plan: Recent A1c 7.4% Diet controlled Continue f/u with PCP (7) Obstructive sleep apnea: Code(s): G47.33 - Obstructive sleep apnea (adult) (pediatric) Status: Chronic Assessment and Plan: PCP to schedule f/u polysomnography with CPAP fitting (8) CHF (congestive heart failure): Qualifiers: Heart failure chronicity: chronic Heart failure type: diastolic Qualified Code(s): I50.32 - Chronic diastolic (congestive) heart failure Code(s): I50.9 - Heart failure, unspecified Status: Chronic Assessment and Plan: Clinically stable (9) Asthma: Qualifiers: Asthma complication type: with acute exacerbation Asthma persistence: persistent Asthma severity: unspecified severity Qualified Code(s): J45.901 - Unspecified asthma with (acute) exacerbation Code(s): J45.909 - Unspecified asthma, uncomplicated Status: Chronic Assessment and Plan: Continue maintenance and prn inhalers DS: Summary Hospital Course Reason for hospitalization: abdominal pain Hospital Course: Visited with patient 03/12/2021. She was admitted with abdominal pain. Found on imaging to have acute pancreatitis and cholelithiasis with possible choledocholithiasis. She was treated with bowel rest analgesics and IV fluids. MRCP showed no common bile duct stone which had presumably past. She improved with conservative treatment with lipase normalizing by day of discharge. She was tolerating her diet. Blood sugars were adequately controlled. She was up and about independently. She did have some severe apnea noted during sleep. Telemetry monitoring was unremarkable. She has known sleep apnea but has been unable to be fitted for a CPAP yet due to scheduling issues. She will pursue this as an outpatient. Laparoscopic cholecystectomy was to be scheduled during the next
== END 2021-03-12 14:27 | disposition home or self-care (01) | DRG 282 ==
LOC: ANHED 05:24 → ANHCPC 05:54
PROVIDERS: Family Medicine; Admitting Provider Internal Medicine; Emergency Provider Emergency Medicine; PCP Family Medicine; Visit Provider Internal Medicine
DX: K85.10 Biliary acute pancreatitis without necrosis or infection (principal); J45.909 Unspecified asthma, uncomplicated; E66.01 Morbid (severe) obesity due to excess calories; Z68.43 Body mass index [BMI] 50.0-59.9, adult; I50.32 Chronic diastolic (congestive) heart failure; N94.9 Unspecified condition associated with female genital organs and menstrual cycle; K80.20 Calculus of gallbladder without cholecystitis without obstruction; E11.65 Type 2 diabetes mellitus with hyperglycemia; R09.02 Hypoxemia; R74.8 Abnormal levels of other serum enzymes; R74.01 Elevation of levels of liver transaminase levels; Z87.891 Personal history of nicotine dependence; Z79.899 Other long term (current) drug therapy
CPT/HCPCS: 36415; 71045; 74018; 74177; 74183; 76376; 76705; 80053; 82948; 83690; 83735; 84478; 85025; 85027; 94640; 96361; 96365; 96366; 96372; 96374; 96375; 96376; 99285; A9270; A9577; G0378; G0379; J0131; J1644; J2270; J2405; J2543; J7030; Q9967

== ENCOUNTER → 2021-03-15 08:30 | Outpatient (CLI) | payer OTHER, SELFPAY ==
[2021-03-15 19:51] LABS: SARS-CoV-2 RNA PCR Negative
== END ==
PROVIDERS: PCP Family Medicine; Visit Provider Surgery
DX: Z01.812 Encounter for preprocedural laboratory examination (principal); Z20.822 Contact with and (suspected) exposure to COVID-19
CPT/HCPCS: C9803; U0003; U0005

== ENCOUNTER 2021-03-15 10:05 | Outpatient (CLI) | payer OTHER, SELFPAY ==
--- NOTE | 2021-03-15 10:10 | ECG_ITS ---
Measurements Intervals [place] Rate: 81 P: 66 UT: 150 QRS: 42 QRSD: 93 T: 43 QT: 383 QTc: 445 Interpretive Statements SINUS RHYTHM POSSIBLE LEFT ATRIAL ENLARGEMENT DELAYED PRECORDIAL R/S TRANSITION BORDERLINE ECG Electronically Signed On 03-15-2021 10:38:42 CDT by Gorge Manley D.O.
[2021-03-15 12:02] LABS: Alanine Aminotransferase 100 U/L (4-35); Alkaline Phosphatase 193 U/L (38-126); Amylase 62 U/L (30-110); Aspartate Amino Transferase 43 U/L (14-36); Bilirubin,Total 0.5 mg/dL (0.2-1.3); Lipase 161 U/L (23-300)
== END 2021-03-15 10:06 | disposition home or self-care (01) ==
LOC: ANHSURGERY 10:10
PROVIDERS: PCP Family Medicine; Visit Provider Surgery
DX: Z01.818 Encounter for other preprocedural examination (principal); K80.20 Calculus of gallbladder without cholecystitis without obstruction; E11.9 Type 2 diabetes mellitus without complications; I50.9 Heart failure, unspecified
CPT/HCPCS: 36415; 80076; 82150; 83690; 86850; 86900; 86901; 93005; C9803; U0003; U0005

== ENCOUNTER 2021-03-16 01:13 | Day surgery (SDC) | payer OTHER, SELFPAY ==
[2021-03-15 08:55] VITALS: BMI 51.7
--- NOTE | 2021-03-15 09:39 | WPDANESEPPF ---
Anes - Initial Pre Proc Eval Procedure: Operation Date: 03/16/21 08:30 Proposed Procedures p Laparoscopic Cholecystectomy with Intra Operative Cholangiogram - Ron Mercado MD Date/Time: 03/15/21 09:39 Surgeon: Ron Mercado MD Pre Op Diagnosis: acute cholecystitis with stone Patient Data Age: 51 Gender: F Height: 1.63 m Weight: 136.6 kg Allergies Allergy/AdvReac Type Severity Reaction Status Date / Time cigarette smoke Allergy Mild Cough Verified 03/16/21 07:21 Home Medications Medication Instructions Recorded Confirmed Type potassium chloride 10 meq PO DAILY 06/03/20 03/16/21 History albuterol sulfate 90 mcg/actuation 1 inh INHALATION Q4-6H PRN #18 g 06/21/20 03/16/21 Rx aerosol inhaler budesonide-formoterol HFA 160 2 puff INHALATION Q12H #10.2 g 06/21/20 03/16/21 Rx mcg-4.5 mcg/actuation aerosol inhaler furosemide 20 mg PO DAILY 07/10/20 03/16/21 History insulin regular human [Humulin R See Rx Instructions .ROUTE .COMPLEX 03/16/21 03/16/21 History Regular U-100 Insuln] multivitamin with iron-mineral 1 tablet PO DAILY 03/16/21 03/16/21 History [Multi M Vitamin] Patient hx anesthesia problems: none Family hx anesthesia problems: none PMFSH Past Medical History Medical History (Updated 03/12/21 @ 13:37 by Franck Lima MD) Acute hypoxemic respiratory failure due to COVID-19 Asthma CHF (congestive heart failure) On 06/04/2020 echo diastolic noncompliance grade 1 Elevated liver enzymes Family history of malignant neoplasm of colon in relative diagnosed when older than 50 years of age Morbid obesity Obstructive sleep apnea Type 2 diabetes mellitus (~06/03/20) Hemoglobin A1c was 7.4% on 06/03/2020. Surgical History Surgical History History of ankle surgery (~2001) Right ankle ORIF with subsequent hardware removal. She tells me that she has only had a couple those screws removed and still has a plate in about 9 screws left in that right ankle. History of section (~1987) History of tonsillectomy (~1977) Family History Family History Father Heart disease Diabetes mellitus Social History Social History Social History: The patient lives in [place] with her spouse and their 2 adult children 1 daughter and 1 son. 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 No alcohol or illicit substance abuse. She designates her , Salvatore Prasad, as her surrogate decision maker and she wishes to be a full code. Smoking packs per day: 1 Smoking cigarettes per day: 20.0 Years smoked: 2 Smoking pack-years: 2.00 Smoking status: Former smoker Tobacco type: cigarettes Smoking end date: 03/15/06 Alcohol intake: never Drinks per week: 1 Substance use: never Living arrangements: with family Gender identity (if verbalized by the patient): Female Spiritual care concerns: No Anes - Eval Final PreProcedure Day of Procedure 03/15/21 09:39 Patient weight: super morbidly obese Heart: regular rate and rhythm Lungs: clear to auscultation and normal air movement Airway: Mallampati scale class II Neurological: alert and oriented Last oral intake: >/= 8 hours ASA classification: IV Emergent: no Anesthetic plan: proceed Anesthesia type and monitoring: general ETT and standard monitoring Informed Consent: The patient's anesthetic plan and its attendant risks and benefits were discussed with the patient/family/POA. Questions were solicited and answers provided to the satisfaction of the patient/family/POA.
[2021-03-16] VITALS (22 sets, daily range): BP systolic 115–147; BP diastolic 50–97; PULSE 69–107; RESP 14–29; TEMP 36.1–36.8; O2SAT 91–100; BMI 52.4
--- NOTE | ~2021-03-16 | XR_ITS ---
EXAMINATION: XR cholangiogram surg 1st inj EXAM DATE: 03/16/2021 10:09 INDICATION: LAP GUS TECHNIQUE: Multiples Cine fluoroscopic images were obtained during injection of the cystic duct duri ng laparoscopic cholecystectomy. Procedure performed by Dr. Ron Mercado MD on 03/16/2021 10:09, radiologist was not present. Total fluoroscopic time of 34 seconds. The DAP for this procedure was 1.3 mGym2. A total of 218 images sent to PACS from the exam. FINDINGS: The cystic duct has been injected. There are no intraluminal filling defects within or st rictures of the common bile duct or opacified hepatic ducts. Forward flow of contrast confirmed into the duodenum. Contrast extravasation is most likely from the injection site. IMPRESSION: Unremarkable biliary system. Reviewed, dictated and finalized at location A.
[2021-03-16] MEDS: ACETAMINOPHEN 500 MG TABLET 1000 MG PO (07:19)
--- NOTE | 2021-03-16 07:41 | WPDHPUPDATE1 ---
History and Physical Update Update Date/Time: 03/16/21 07:41 History and Physical has been reviewed, including an updated exam of the patient. There are NO changes in the patient's condition. Risks, benefits, and alternatives have been discussed and questions answered. Patient agrees to proceed with procedure.
[2021-03-16] MEDS: KETOROLAC 15 MG/ML VIAL (*BKC) IV PUSH (07:57)
[2021-03-16] MEDS: LACTATED RINGERS 1,000 ML 30 ML IV CONT (07:57)
[2021-03-16 08:00] LABS: Glucose Point of Care 149 mg/dl (65-105)
[2021-03-16] MEDS: ceFAZolin 3 GM/D5W 100 ML 100 ML IVPB (08:38)
--- NOTE | 2021-03-16 10:36 | W.PM.PROC2 ---
Procedure Note - Detailed Date of Procedure 03/16/21 Pre-op Diagnosis Biliary acute pancreatitis Post-op Diagnosis same Procedure Performed Laparoscopic cholecystectomy with intraoperative cholangiogram Surgeon Ron Mercado MD Immigration Paralegal Ruthann Figueroa INDUSTRIAL CAFETERIA MANAGER INDUSTRIAL CAFETERIA MANAGER Anesthesia general and local (0.25% Marcaine with epinephrine) Indications Patient is a 51-year-old woman with several comorbid conditions. She had an episode of acute biliary pancreatitis last May and then 1 again just last week. Her MRCP was negative. She has recovered from her pancreatitis and is taken to surgery now for laparoscopic cholecystectomy with intraoperative cholangiogram. Findings There were many small stones in the gallbladder. The cystic duct was not dilated. Intraoperative cholangiogram was negative. There was evidence of chronic inflammation in the gallbladder. Patient had fatty liver which tended to bleed very easily. No other significant findings were noted. Description of Procedure The patient was taken to surgery and induced into general anesthesia. The abdomen was prepped and draped. Trocars were placed in the usual fashion using 0.25% Marcaine with epinephrine and applied Medical optical trocars. An extra 5th trocar was placed in the left mid abdomen to allow additional traction on the duodenum to better expose the cholecystohepatic triangle. Once adequate insufflation had been established and we were able to visualize the gallbladder, it was noted that the gallbladder was not severely distended but was partially intrahepatic throughout its length. Gallbladder was grasped and retracted anterosuperiorly. The gallbladder was fragile and tore easily. Gallbladder was retracted anterosuperiorly. Traction was placed on the infundibulum. Posterior traction was placed on the duodenum and distal stomach. We dissected in the cholecystohepatic triangle. This was quite bloody due to chronic inflammation and recent pancreatitis. Some cautery was used for hemostasis. The cystic artery was dissected. It branched to an anterior and posterior branch. Both of these were dissected. The cystic artery was securely clipped below the branching as well as each of the branches. It was then divided. The gallbladder was dissected off the liver at its lower 3rd prior to dividing the cystic artery. Critical view was achieved. Once the cystic artery was divided, we dissected a bit more of the cystic duct. During retraction of the gallbladder, an area on the fundus tore. Stone material was suctioned away before any significant amounts had escaped. I had to dissect the lateral aspect of the gallbladder away from the liver so that we could get enough gallbladder to close this opening with a Vicryl endoloop. We then used a Vicryl endoloop and ligated the gallbladder in the area of the opening. We then proceeded with additional retraction of the gallbladder. In the area of the infundibulum, another gallbladder opening occurred with traction. This was occluded simply by using the clamp to retract the gallbladder. Some additional stone material was suctioned away and spillage was kept to a minimum in this instance as well. We then proceeded with the intraoperative cholangiogram. Clips were placed on the distal gallbladder just above the cystic duct. An opening was made at the junction of the cystic duct with the gallbladder. I initially tried to place the cholangiogram catheter but could not establish placement in the cystic duct that would allow dye injection. I removed the cholangiogram catheter and milked some stone material out of the cystic duct. I then again placed the cholangiogram catheter this time in the cystic duct with only a minimal amount of leakage. We proceeded with a cholangiogram. No filling defects were noted on the cholangiogram and it did fill into the duodenum. The radiologist reviewed this and communicated his negative interpretation to me by phone during t
[2021-03-16 10:45] LABS: Glucose Point of Care 144 mg/dl (65-105)
[2021-03-16] MEDS: fentaNYL CITRATE INJ (*CRX) 100 MCG/2 ML VIAL 25 MCG IV PUSH ×3 (11:12→11:59)
--- NOTE | 2021-03-16 13:04 | ADMGEN ---
This patient, Iris Prasad, was admitted to IMU Room 212-01 @ 1240 from PACU. Patient oriented to hospital policies and general routines including ID bracelet, bed and alarms, visiting hours, pain management, procedures, bathroom and other care routines, personal items, smoking policy, room service/diet, and visiting hours. Information on how to activate the Rapid Response Team has been discussed. Patient encouraged to report perceived risks to care and to ask questions if she does not understand
[2021-03-16 13:48] LABS: Glucose Point of Care 122 mg/dl (65-105)
[2021-03-16] MEDS: HYDROcodone/acetaminophen (*CRX) 10-325 MG TABLET 1 TAB PO ×2 (13:49→21:12)
[2021-03-16 17:33] LABS: Glucose Point of Care 116 mg/dl (65-105)
--- NOTE | 2021-03-16 18:00 | WPDCN ---
Assessment and Plan Assessment and plan (1) Biliary acute pancreatitis: Code(s): K85.10 - Biliary acute pancreatitis without necrosis or infection Status: Resolved (2) Cholelithiasis: Qualifiers: Cholelithiasis location: gallbladder Cholecystitis presence: without cholecystitis Biliary obstruction: without biliary obstruction Qualified Code(s): K80.20 - Calculus of gallbladder without cholecystitis without obstruction Code(s): K80.20 - Calculus of gallbladder without cholecystitis without obstruction Status: Acute (3) Chronic respiratory failure: Code(s): J96.10 - Chronic respiratory failure, unspecified whether with hypoxia or hypercapnia Status: Acute (4) Obstructive sleep apnea: Code(s): G47.33 - Obstructive sleep apnea (adult) (pediatric) Status: Chronic (5) Type 2 diabetes mellitus: Onset Date: ~06/03/20 Qualifiers: Diabetes mellitus senior care insulin use: with senior care use Diabetes mellitus complication status: with hyperglycemia Qualified Code(s): E11.65 - Type 2 diabetes mellitus with hyperglycemia; 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 Mercado. Wound care and pain control will be deferred to primary service. It is my understanding that the patient was having issues with her respiratory status in PACU and is being kept overnight for closer monitoring. She is not on a CPAP at home as she has yet to have a formal outpatient polysomnogram. She is quite intolerant to the BiPAP mask though at this time she is on 2 L nasal cannula and is alert and oriented without issues. She will remain on continuous pulse oximetry overnight, oxygen available as needed. Random glucose is evening was 110. The patient tells me that she is not on basal insulin at home and instead she takes mealtime insulin only. Initiate sliding scale insulin, Accu-Cheks, and hypoglycemic protocol. Check hemoglobin A1c. No acute issues with regards to her asthma. Appears clinically compensated with regards to her diastolic dysfunction though has mild pedal edema. Avoid over-hydration. Thank you for allowing us to participate in this patient's care. Please do not hesitate to contact us with any questions. Supervising physician for this medical consultation is Dr. Karan Maza. HPI Data of Consult Date/Time: 03/16/21 18:00 Requesting Physician: Ron Mercado MD Primary Care Provider: Devin Ricardo, Consult Narrative Narrative: This is a pleasant 51-year-old female with asthma, sleep apnea, and diabetes whom the hospitalist has been consulted for management of her medical conditions postoperatively. She was recently admitted to the hospitalist service with gallstone pancreatitis and she was discharged home on 03/12/2021 with plans for outpatient laparoscopic cholecystectomy today. It is my understanding that she is being admitted overnight for close observation due to oxygen desaturations in the PACU for which she was placed on BiPAP for short period of time. At the time my evaluation the patient is on nasal cannula and is alert and oriented x4. She is only having minimal discomfort at her operative site. She denies postoperative fever, chills, sweats, chest pain, s
[2021-03-16] MEDS: HYDROcodone/acetaminophen (*CRX) 5-325 MG TABLET 1 TAB PO (18:09)
[2021-03-16 20:18] LABS: Glucose Point of Care 110 mg/dl (65-105)
[2021-03-16] MEDS: ENOXAPARIN 30 MG/0.3 ML SYRINGE SUB-Q (21:11)
[2021-03-17] VITALS (11 sets, daily range): BP systolic 121–135; BP diastolic 71–85; PULSE 75–95; RESP 18–20; TEMP 36.5–36.6; O2SAT 91–99
[2021-03-17 06:09] LABS: Hematocrit 39.5 % (37.0-47.0); Hemoglobin 11.4 g/dL (12.0-15.0); Mean Corpuscular HGB Conc 28.9 g/dl (32-36); Mean Corpuscular Hemoglobin 24.6 pg (26-34); Mean Corpuscular Volume 85.3 fl (80-100); Mean Platelet Volume 9.5 fl (7.4-10.4); Platelet Count Result 390 k/mm3 (150-375); Red Blood Count 4.63 M/mm3 (4.2-5.4); Red Cell Distribution Width 16.1 % (11.5-14.5)
[2021-03-17 06:52] LABS: Anion Gap 7 mmol/L (8-16); Blood Urea Nitrogen 9 mg/dL (7-17); Calcium 9.1 mg/dL (8.4-10.2); Carbon Dioxide 32 mmol/L (22-30); Chloride 97 mmol/L (98-107); Estimated CRCL calculation 131 ml/min; Estimated Glomerular Filt Rate > 60; Glucose 134 mg/dL (65-110); Potassium 4.4 mmol/L (3.4-5.0); Sodium 136 mmol/L (137-145)
[2021-03-17 07:42] LABS: Hemoglobin A1C 6.2 % (<5.7)
[2021-03-17] MEDS: FUROSEMIDE 20 MG TABLET PO (08:40)
--- NOTE | 2021-03-17 10:06 | PM.IMPN ---
Progress Note: A&P Assessment and Plan (1) Biliary acute pancreatitis: Code(s): K85.10 - Biliary acute pancreatitis without necrosis or infection Status: Resolved (2) Cholelithiasis: Qualifiers: Biliary obstruction: without biliary obstruction Cholecystitis presence: without cholecystitis Cholelithiasis location: gallbladder Qualified Code(s): K80.20 - Calculus of gallbladder without cholecystitis without obstruction Code(s): K80.20 - Calculus of gallbladder without cholecystitis without obstruction Status: Acute (3) Chronic respiratory failure: Code(s): J96.10 - Chronic respiratory failure, unspecified whether with hypoxia or hypercapnia Status: Acute (4) Obstructive sleep apnea: Code(s): G47.33 - Obstructive sleep apnea (adult) (pediatric) Status: Chronic (5) Type 2 diabetes mellitus: Onset Date: ~06/03/20 Qualifiers: Diabetes mellitus complication status: with hyperglycemia Diabetes mellitus buttermaker helper insulin use: with alf use Qualified Code(s): E11.65 - Type 2 diabetes mellitus with hyperglycemia; Z79.4 - intermediate (current) use of insulin Code(s): E11.9 - Type 2 diabetes mellitus without complications Status: Acute (6) Asthma: Qualifiers: Asthma complication type: with acute exacerbation Asthma persistence: persistent Asthma severity: unspecified severity Qualified Code(s): J45.901 - Unspecified asthma with (acute) exacerbation Code(s): J45.909 - Unspecified asthma, uncomplicated Status: Chronic (7) Diastolic dysfunction: Code(s): I51.89 - Other ill-defined heart diseases Status: Acute Additional Plan The patient has a hx of GS pancreatitis and is now status post laparoscopic cholecystectomy with intraoperative cholangiogram on 03/[address] Mercado. Patient toelrated the procedure well. Wounds look good. Eating and tolerating with passing flatus. Pain controlled. Wound care and pain control per primary service. Patient stable on 2L NC. Continue her current home regiment of O2 with 2-3L with exertion and at sleep. She has a pulse oximeter at home to monitor. She may need O2 at rest until such time that she more up and out of bed; she can monitor her SpO2 to keep this >90%. She is not on a CPAP at home and she needs to arrange to have a formal outpatient polysomnogram. Glucose result reviewed and are well controlled. Her A1c 6.2. Continue home diabetic regiment. Continue Accu-Cheks covering with sliding scale insulin; hypoglycemic protocol available as needed. No wheezing appreciated with regards to her asthma; she was encouraged to have the COVID vaccine. It ws difficult to determine her true hesitancy about taking the vaccine. Appears clinically compensated with regards to her diastolic dysfunction though has mild pedal edema. Will continue to follow along. Subjective Date/time seen: 03/17/21 10:06 Interval history: Consulted on a 51yo female with chronic respiratory failure, DM and VARINDER here for hypoxia after laparoscopic cholecystectomy for gallstone pancreatitis. Patient has yet to have the formal sleep study for her VARINDER and thus dies not have a NIV unit at home. She does wear O2 at home 2-3L with exertion and with sleep. She wore O2 vis NC overnight. She states her pain is well controlled. She had COVID in July but is refusing the vaccine. She denies CP. (+) flatus but no BM. She has been up walking in the room. Exam Narrative: AF 97.7 135/71 84 20 96% 2L Gen - obese female in NARD lying semi-recumbent in bed Chest - few minor inspiratory rhonchi in the bases o/w clear, nml RR, no conversational dyspnea CV - RRR S1/S2; Tele showing no significant dysrhythmias Abd - soft, obese, +BS, lap chol incision are clean, dry and intact without erythema Ext - trace pedal edema Neuro - AOx4 Psych - nml mood but odd affect Skin - warm and dry Objective Data Vital Signs Vital Signs: Kia
[2021-03-17] MEDS: HYDROcodone/acetaminophen (*CRX) 5-325 MG TABLET 1 TAB PO (12:10)
--- NOTE | 2021-03-17 12:21 | PM.DS ---
DS: Admitting Diagnosis Discharge Date March 17, 2021 Admitting Diagnosis Acute biliary pancreatitis Asthma Obstructive sleep apnea not on CPAP Morbid obesity Yon-licscfm-mwgfgtzvm diabetes Congestive heart failure DS: Discharge Diagnosis Discharge Diagnosis (1) Biliary acute pancreatitis: Code(s): K85.10 - Biliary acute pancreatitis without necrosis or infection Status: Acute (2) Chronic respiratory failure: Code(s): J96.10 - Chronic respiratory failure, unspecified whether with hypoxia or hypercapnia Status: Chronic (3) Obstructive sleep apnea: Code(s): G47.33 - Obstructive sleep apnea (adult) (pediatric) Status: Chronic (4) Asthma: Qualifiers: Asthma complication type: with acute exacerbation Asthma persistence: persistent Asthma severity: unspecified severity Qualified Code(s): J45.901 - Unspecified asthma with (acute) exacerbation Code(s): J45.909 - Unspecified asthma, uncomplicated Status: Chronic (5) Type 2 diabetes mellitus: Onset Date: ~06/03/20 Qualifiers: Diabetes mellitus complication status: with hyperglycemia Diabetes mellitus intermediate school teacher insulin use: with [facility] use Qualified Code(s): E11.65 - Type 2 diabetes mellitus with hyperglycemia; Z79.4 - intermediate school teacher (current) use of insulin Code(s): E11.9 - Type 2 diabetes mellitus without complications Status: Chronic (6) Morbid obesity: Code(s): E66.01 - Morbid (severe) obesity due to excess calories Status: Chronic DS: Summary Hospital Course Hospital Course: Patient was recently discharged less than a week ago with recurrent episode of biliary acute pancreatitis. Her pancreatitis resolved and she was eating well with no abdominal pain. She had pulmonary consultation during that admission. She has multiple pulmonary comorbidities as well as type 2 diabetes, congestive heart failure, and morbid obesity. She was taken to surgery on 03/16/2021 and underwent laparoscopic cholecystectomy with intraoperative cholangiogram. The surgery went well. The cholangiogram was negative. She was observed postoperatively in the intermediate care unit as she has significant obstructive sleep apnea and does not use CPAP. She also is on home oxygen intermittently. She did well after surgery and was ambulatory. She was very comfortable with few oral analgesics. Her respiratory status returned to baseline and she was able to be discharged the day after surgery, 03/17/2021 in good condition. Status at Discharge Functional status at discharge: independent ambulation Overall status at discharge: patient is progressing back to baseline Time Spent with Patient Time attestation: Total time spent providing and/or coordinating discharge services: Exam Const: General: comfortable and no acute distress; No confusion Orientation/consciousness: patient oriented x3 and No confusion Resp: Effort & Inspection: normal respiratory effort Auscultation: clear to auscultation bilaterally Cardio: Rate: regular rate Rhythm: regular rhythm GI: Inspection: non-distended, incision (All incisions dry and healing well, minimal tenderness) and obesity GI Palp: Yes Soft to palpation, Yes Tenderness to palpation present (GI) (Mild, appropriate tenderness), No Guarding due to palpation present (GI) and No Rebound tenderness present Auscultation: normal bowel sounds Neuro: General: patient oriented x3, no focal motor deficits and No confusion Extrem: General: no calf tenderness and no edema Psych: Affect: normal affect Insight: Good insight present (Psych) Judgement: Good judgement present (Psych) DS: Data Data Completed and Pending Completed studies during hospitalization: Pending at discharge 03/16/21 10:01 Surgical [PTH] Routine Labs on day of discharge: Labs from last 24 hours 03/17/21 03/17/21 03/17/21 05:45 05:45 05:45 WBC 12.0 H RBC 4.63 Hgb 11
--- NOTE | 2021-03-17 12:32 | WPDANESPN ---
Anes - Prog Note Post-Op Date/Time: 03/17/21 12:32 Cardiovascular status: normal Respiratory status: normal Airway patency: baseline Mental status: baseline Post-Op hydration status: normal Vital Signs: Last Vital Signs Temp 36.5 C 03/17/21 09:37 Pulse 84 03/17/21 09:37 Resp 20 03/17/21 09:37 BP 135/71 03/17/21 09:37 Pulse Ox 91 03/17/21 10:19 Pain Score (VAS): 0 I/O: Intake & Output 03/16/21 03/17/21 03/17/21 23:59 07:59 15:59 Intake Total 1360 700 240 Output Total 475 800 Balance 885 -100 240 Laboratory Tests 03/17/21 05:45 03/17/21 05:45 03/16/21 03/16/21 03/16/21 13:41 17:26 19:57 WBC RBC Hgb Hct MCV MCH MCHC RDW Plt Count MPV Sodium Potassium Chloride Carbon Dioxide Anion Gap BUN Creatinine Estim Creat Clear Calc Estimated GFR Glucose POC Capillary Glucose 122 H 116 H 110 H Hemoglobin A1c Calcium Magnesium 03/17/21 03/17/21 03/17/21 05:45 05:45 05:45 WBC 12.0 H RBC 4.63 Hgb 11.4 L Hct 39.5 MCV 85.3 MCH 24.6 L MCHC 28.9 L RDW 16.1 H Plt Count 390 H MPV 9.5 Sodium 136 L Potassium 4.4 Chloride 97 L Carbon Dioxide 32 H Anion Gap 7 L BUN 9 Creatinine 0.60 L Estim Creat Clear Calc 131 Estimated GFR > 60 Glucose 134 H POC Capillary Glucose Hemoglobin A1c 6.2 H Calcium 9.1 Magnesium 2.0 Post-procedural complaints: none Patient Feedback: Patient satisfied with anesthetic care.
[2021-03-17 12:38] LABS: Glucose Point of Care 91 mg/dl (65-105)
== END 2021-03-17 16:21 | disposition home or self-care (01) ==
LOC: ANHSURGERY 09:10 → ANHIMU 12:40
PROVIDERS: Physician Assistant; PCP Family Medicine; Visit Provider Surgery
PROC: 0FT44ZZ Resection of Gallbladder, Percutaneous Endoscopic Approach (ICD-10-PCS; CPT 47562; principal; 2021-03-16 08:30)
DX: K85.10 Biliary acute pancreatitis without necrosis or infection (principal); K80.10 Calculus of gallbladder with chronic cholecystitis without obstruction; J96.10 Chronic respiratory failure, unspecified whether with hypoxia or hypercapnia; J45.901 Unspecified asthma with (acute) exacerbation; R01.1 Cardiac murmur, unspecified; I50.9 Heart failure, unspecified; I51.89 Other ill-defined heart diseases; E11.9 Type 2 diabetes mellitus without complications; G47.33 Obstructive sleep apnea (adult) (pediatric); Z87.891 Personal history of nicotine dependence; E66.01 Morbid (severe) obesity due to excess calories; Z68.43 Body mass index [BMI] 50.0-59.9, adult; Z79.51 Long term (current) use of inhaled steroids; Z79.4 Long term (current) use of insulin
CPT/HCPCS: 47563; 36415; 74300; 80048; 82948; 83036; 83735; 85027; 88304; 94640; A9270; C1713; J0330; J0690; J1650; J1885; J2250; J2405; J2704; J2710; J3010; J7120; Q9966

== ENCOUNTER 2022-04-19 10:27 | Outpatient (CLI) | payer OTHER, SELFPAY ==
--- NOTE | 2022-05-08 09:12 | WPDSLEEPSTUD ---
Sleep Study Date of Study: 04/19/22 Ordering Provider: Hasmukh Rosenberg APRN Interpreting Physician: Yue Jacobs MD Sleep Study Type: Split Polysomnogram Height: 1.63 m Weight: 139.253 kg Body Mass Index: 52.7 Neck Circumference (inches): 18 [place]: 14 Reason for Sleep Study Excessive daytime sleepiness, poor quality sleep, uses oxygen, chronic respiratory failure * home sleep test with [facility], severe obstructive sleep apnea AHI 98 mainly obstructive 93% with 7% central and mixed apneas and desaturation to 55%. She presents now for an in-lab study. Sleep History Iris Prasad is a 52-year-old woman with excessive daytime sleepiness and loud snoring. Her snoring is frequently loud enough that others complain about it.? She rarely awakens at night with heartburn, belching or coughing.? She does not awaken from sleep feeling short of breath.? She has had increased problems with swelling in her legs.? She does not wake up gasping for breath at night.? She does not sweat excessively at night or notice her heart pounding or beating irregularly at night.? She frequently falls asleep during the day, frequently involuntarily only rarely while driving.? She does not fall asleep while exerting physical effort.? She does not have loss of muscle tone with strong emotion.? She frequently has daytime sleepiness.? She does not feel paralyzed on waking or falling asleep.? She occasionally has vivid dreamlike scenes upon awakening or falling asleep.? She does not feel afraid to go to sleep.? She does not have nightmares.? She frequently remembers her dreams.? She rarely has racing thoughts.? She rarely feels sad or depressed.? She does not have anxiety.? She occasionally has muscular tension.? She does not notice parts of her body jerking.? She does not kick at night or have crawling or aching feelings in her legs.? She does not have any kind of leg pain at night.? She does not have morning jaw pain.? She does not grind her teeth during sleep.? She frequently is bothered by pain during the day.? She rarely is awakened by pain at night.? She frequently wakes up feeling stiff in the morning, with sore achy muscles and pain in the neck and spine.? She has fatigue and occasional morning headaches. She had COVID pneumonia and required admission to the hospital for acute respiratory failure, was able to go home on room air. Normal? bedtime is between 10:00 p.m. and? midnight falling asleep quickly, waking 3-4 times at night to urinate and get a drink.? She wakes the morning between 6 and 7:00 a.m..? Her weekend schedule is the same.? She estimates getting 8-10 hours of sleep at night.? She does take naps in the afternoon or evening.? A short nap is refreshing.? She is drowsy in the morning for about an hour or longer.? She feels better in the evening compared to other times of day. Habits: ? Smoked cigarettes in the past.? Caffeine 1-2 servings per day.? No alcohol or recreational drugs. [facility] Past Medical History Medical History (Updated 05/08/22 @ 09:20 by Yue Jacobs MD) Asthma CHF (congestive heart failure) Chronic respiratory failure On 2 L nasal cannula with activity. Diastolic dysfunction Grade 1 diastolic dysfunction on echocardiogram dated 06/04/2020. Gallstone pancreatitis (03/2021) Morbid obesity Obstructive sleep apnea Type 2 diabetes mellitus (~06/03/20) Hemoglobin A1c was 7.4% on 06/03/2020. Surgical History Surgical History History of ankle surgery (~2001) Right ankle ORIF with subsequent hardware removal. She tells me that she has only had a couple those screws removed and still has a plate in about 9 screws left in that right ankle. History of section (~1987) History of laparoscopic cholecystectomy (03/16/21) History of tonsillectomy (~1977) Hx laparoscopic cholecystectomy 03/16/21 Laparoscopic cholecystectomy with intraoperative cholangiogram Family History Family Hi
[2022-05-08 09:30] VITALS: BMI 52.7
== END 2022-04-20 06:30 | disposition home or self-care (01) ==
LOC: ANHCSM 10:29
PROVIDERS: PCP Family Medicine; Visit Provider Nurse Practitioner Family
DX: G47.33 Obstructive sleep apnea (adult) (pediatric) (principal); G47.30 Sleep apnea, unspecified; Z68.43 Body mass index [BMI] 50.0-59.9, adult
CPT/HCPCS: 95811

== ENCOUNTER 2022-04-19 12:54 | Outpatient (CLI) | payer OTHER, SELFPAY ==
--- NOTE | ~2022-04-19 | XR_ITS ---
EXAMINATION: XR chest 2V Exam Date/Time: 04/19/2022 13:50 CDT HISTORY: R06.09 - Other forms of dyspnea Comparison: 03/10/2021. RESULT: Lines, tubes, and devices: None. Lungs and pleura: Clear. Cardiomediastinal silhouette: Stable. Other: No acute osseous or upper abdominal finding. IMPRESSION: No acute cardiopulmonary process. Reviewed, dictated and finalized at location K.
--- NOTE | ~2022-04-19 | US_ITS ---
EXAMINATION: US venous doppler LE RT DATE: 04/19/2022 14:24 INDICATION: Dyspnea. Other specified soft tissue disorder. TECHNIQUE: Grayscale ultrasound images without and with compression and Doppler ultrasound images of the right lower extremity veins were obtained. COMPARISON: None. FINDINGS: The visualized portions of right common femoral vein, profunda (deep) femoral vein, femoral vein, pop liteal vein, peroneal trunk, posterior tibial veins and greater saphenous vein outflow are patent. Pr ominent reticular pattern of subcutaneous edema along the anteromedial aspect of the lower leg. IMPRESSION: 1. No deep venous thrombosis in the right lower limb. Reviewed, dictated and finalized at location B.
[2022-04-19 12:55] VITALS: PULSE 90; O2SAT 87
[2022-04-19 12:57] VITALS: PULSE 89; O2SAT 90
[2022-04-19 13:05] VITALS: PULSE 96; O2SAT 87
[2022-04-19 13:10] VITALS: PULSE 98; O2SAT 92
[2022-04-19 14:51] VITALS: PULSE 95; O2SAT 91
--- NOTE | 2022-04-19 14:52 | HOMEO2EVAL ---
Evaluation was performed at [facility] Home Oxygen Evaluation RC: Home Oxygen (O2) Evaluation Start: 04/19/22 14:48 Freq: Status: Active Protocol: RPE Activity Type Activity Date Activity User E-sign Co-sign Detail Recorded Client Recorded Date Recorded By Document 04/19/22 12:55 PK [email or web address] 04/19/22 14:52 PKH Document 04/19/22 12:57 PKH [email or web address] 04/19/22 14:52 PKH Document 04/19/22 13:05 PK [email or web address] 04/19/22 14:52 PK Document 04/19/22 13:10 PK [email or web address] 04/19/22 14:52 PK Document 04/19/22 14:51 PK [email or web address] 04/19/22 14:52 PK 04/19/22 04/19/22 04/19/22 12:55 12:57 13:05 Home O2 Evaluation [Oxygen] -Test Phase Resting Resting Exercise -Oxygen Delivery Room Air Nasal Cannula Nasal Cannula -Oxygen Flow Rate (L/min) 1 [Pulse Oximetry] -Pulse Oximetry (90-100 %) 87 L 90 87 L [Pulse Rate] -Pulse Rate (60-100 beats/min) 90 89 96 [Exercise] -Ambulation Distance (feet) -Ambulation Distance (meters) [Comments] -Home Oxygen Evaluation Comments [Charges] -Treatment Charges O2 Evaluation - Outpatient 04/19/22 04/19/22 13:10 14:51 Home O2 Evaluation [Oxygen] -Test Phase Exercise Resting -Oxygen Delivery Nasal Cannula Nasal Cannula -Oxygen Flow Rate (L/min) 2 1 [Pulse Oximetry] -Pulse Oximetry (90-100 %) 92 91 [Pulse Rate] -Pulse Rate (60-100 beats/min) 98 95 [Exercise] -Ambulation Distance (feet) 300 -Ambulation Distance (meters) 91.43 [Comments] -Home Oxygen Evaluation Comments PATIENT REQUIRES 1LPM WITH REST AND 2LPM WITH ACTIVITY. [Charges] -Treatment Charges
--- NOTE | 2022-05-01 09:36 | WPDPFTINT ---
PFT Procedure Performed PFT Procedure Performed Spirometry with Pre/Post Bronchodilator Plethysmography (Lung Vol) Diffusing Cap (DLCO) Flow Vol Loop PFT Interpretation DOS: 04/19/2022 REQUESTING: Hasmukh Rosenberg APRN REASON FOR TESTING: Shortness of breath PULMONARY FUNCTION TESTS Results are reliable and reproducible. Spirometry: Pre bronchodilator FEV1 is 1.59 L, 58% predicted, decreased. FVC is 1.91 L, 56% predicted, decreased. FEV1/FVC is 83% predicted, normal. After bronchodilator, there is a 5% increase in the FEV1, 1.67 L. There is a 4% decrease in the FVC. These are not statistically significant Lung volumes: Total lung capacity 3.08 L, 61%, consistent with a restrictive impairment. Residual volume 1.03 L, 56%, below the lower limits of normal. RV/TLC is 33, normal. Diffusion: DLCO 19.3, 86% predicted, normal. DLCO/VA is 6.47, above predicted, 142%. Flow volume loop: There is no expiratory coving IMPRESSION: There is a moderate restrictive ventilatory impairment with normal diffusion. No airflow obstruction. Compared to a prior study August 04, 2020 the restrictive impairment is worse but the diffusion has improved. FEV1 was 68% and now is lower 56%. FVC was 65%, previously was 65% so this is also lower. These drops are consistent with worsening restriction. Total lung capacity was 73% and now at 61% which is significantly worse. Diffusion was 55% now 86%, improved. Clinical correlation is advised. Yue Jacobs MD
== END 2022-04-19 12:55 | disposition home or self-care (01) ==
LOC: ANHPFT 12:55
PROVIDERS: PCP Family Medicine; Visit Provider Nurse Practitioner Family
DX: R06.09 Other forms of dyspnea (principal); R05.8 Other specified cough; J45.901 Unspecified asthma with (acute) exacerbation
CPT/HCPCS: 71046; 93971; 94060; 94618; 94726; 94729

== ENCOUNTER 2023-11-19 08:41 | Outpatient (CLI) | payer OTHER, SELFPAY ==
[2023-11-19 09:16] LABS: Alveolar/Arterial O2 Gradient 58.5 mmHg; Base Excess ABG 9.6 mEq/l (+/-2.0); Carboxyhemoglobin 1.4 % THb (0-2.0); Fractional Inspired Oxygen 24 %; HCO3 ABG 36.3 mEq/l (22.0-26.0); Oxygen Content ABG 12.6 %vol (16.0-22.0); PCO2 ABG 59.7 mmHg (35.0-45.0); PO2 FiO2 Ratio Arterial Blood 1.73 %; Reduced Hemoglobin 23.8 %THb (0-5.0); pH ABG 7.402 (7.350-7.450)
[2023-11-19 09:34] LABS: Device NASAL CANNULA; Modified Allen's Test Pass; Oxygen Saturation ABG 75.8 % (95.0-100.0); Oxyhemoglobin 74.8 % THb (90.0-100.0); Site Drawn LEFT RADIAL
--- NOTE | 2023-11-19 10:03 | PCRCNOTE ---
Spoke with Nga at pulmonary office. She said to instruct pt. to increase o2 to 2lpm cont. It is okay to send pt. home. They will contact pt. for further instructions.
[2023-11-19 10:06] LABS: PO2 ABG 41.6 mmHg (80.0-100.0)
== END 2023-11-19 08:42 | disposition home or self-care (01) ==
LOC: ANHPFT 08:42
PROVIDERS: PCP Family Medicine; Visit Provider Nurse Practitioner Family
DX: J96.11 Chronic respiratory failure with hypoxia (principal); J96.12 Chronic respiratory failure with hypercapnia
CPT/HCPCS: 36600; 82375; 82805; 83050

== ENCOUNTER 2023-12-25 08:09 | Outpatient (CLI) | payer OTHER, SELFPAY ==
--- NOTE | 2023-12-25 08:20 | ECHO_ITS ---
Patient Info Name: Iris Prasad Age: 53 years : 1970 Gender: Female Ht: 64 in Wt: 300 lbs BSA: 2.56 m2 HR: 79 bpm BP: 108 / 74 mmHg Technical Quality: Poor Exam Date: 12/25/2023 8:35 AM Exam Location: Echo Lab Patient Status: Outpatient Admit Date: 12/25/2023 Staff Ordering Physician: Gorge Manley DO Renal Dietitian: Mallika Ledesma RDCS Attending Provider: Gorge Manley DO Referring Physician: Vineet PINO; Exam Type: CA echo dop color flow w con Study Info Indications R06.09 - Other forms of dyspnea Contrast/Agitated Saline Contrast/Ag. Saline: Definity Amount: 2.00 ml Administered By: Mallika Ledesma RDCS New IV Access: Inner Forearm and Left Site Condition: No extravasation, Site dressing applied and IV removed Reason for Poor Study: patient body habitus Summary 1. Definity contrast administered improved wall motion interpretation. 2. Left ventricular chamber dimension is normal. 3. Left ventricular systolic function is normal, estimated at 60-65%. 4. There is mild concentric increased left ventricular wall thickness. 5. The left ventricular diastolic function is grade II diastolic dysfunction. 6. E/e' 17 is elevated. 7. Left atrial chamber dimension is mildly enlarged. 8. Right atrial chamber dimension is mildly enlarged. 9. Mild pulmonary hypertension, estimated pulmonary arterial systolic pressure is 48 mmHg. 10. There is trace pulmonic regurgitation. 11. There is trivial pericardial effusion. Left Ventricle Definity contrast administered improved wall motion interpretation. E/e' 17 is elevated. Left ventricular chamber dimension is normal. Left ventricular systolic function is normal, estimated at 60-65%. There is mild concentric increased left ventricular wall thickness. The left ventricular diastolic function is grade II diastolic dysfunction. Right Ventricle Right ventricular systolic function is normal and with normal TAPSE 1.9 ccm. Right ventricular chamber dimension is normal. Left Atria Left atrial chamber dimension is mildly enlarged. Right Atria Right atrial chamber dimension is mildly enlarged. Aortic Valve The aortic valve is probable trileaflet. There is no aortic valve stenosis. There is no aortic valve regurgitation. Pulmonic Valve There is trace pulmonic regurgitation. Mitral Valve There is no mitral valve stenosis. There is no mitral valve regurgitation. Tricuspid Valve There is no tricuspid valve regurgitation. Mild pulmonary hypertension, estimated pulmonary arterial systolic pressure is 48 mmHg. Pericardium/Pleural There is trivial pericardial effusion. Inferior Vena Cava Normal inferior vena cava with >50% collapse upon inspiration consistent with normal right atrial pressure, 5 mmHg. Aorta The aortic root size at the sinus of Valsalva is normal. Left Ventricular Outflow Tract Name Value Normal LVOT 2D LVOT Diameter 1.99 cm LVOT Doppler LVOT Peak Gradient 10 mmHg LVOT Mean Gradient 6 mmHg LVOT VTI 31.23 cm LVOT VTI/AV VTI Ratio 0.84 LVOT Stroke Volume
[2023-12-25] MEDS: PERFLUTREN LIPID MICROSPHERES 1.5 ML VIAL DILUTED TO 10 ML TOTAL VOLUME IV PUSH (09:15)
--- NOTE | 2023-12-25 09:57 | IVDEFINITY ---
Prior to administration of IV Definity the patient was educated on the risks and benefits of the imaging enhancing agent including potential adverse side effects. The patient verbalized understanding. Allergies were verified. No exclusion criteria were identified and at least one of the following inclusion criteria were met: 1) physician request, 2) patient technically difficult to image (per the [place] [employer] Echocardi[employer] guidelines of two or more segments not discernable within the apical view), or 3) questionable left ventricular function. ?
== END 2023-12-25 08:10 | disposition home or self-care (01) ==
PROVIDERS: PCP Family Medicine; Visit Provider Internal Medicine Cardiovascular Disease
DX: R06.09 Other forms of dyspnea (principal); I51.89 Other ill-defined heart diseases; I27.20 Pulmonary hypertension, unspecified; I31.39 Other pericardial effusion (noninflammatory)
CPT/HCPCS: C8929; Q9957

== ENCOUNTER 2024-08-13 13:46 | Outpatient (CLI) | payer MEDICARE, MEDICAID, SELFPAY ==
[2024-08-13 14:00] VITALS: PULSE 79; O2SAT 94
[2024-08-13 14:10] VITALS: PULSE 102; O2SAT 85
[2024-08-13 14:15] VITALS: PULSE 101; O2SAT 86
[2024-08-13 14:16] LABS: Alveolar/Arterial O2 Gradient 110.4 mmHg; Base Excess ABG 5.4 mEq/l (+/-2.0); Fractional Inspired Oxygen 32 %; HCO3 ABG 30.6 mEq/l (22.0-26.0); Oxygen Content ABG 15.1 %vol (16.0-22.0); Oxygen Saturation ABG 92.3 % (95.0-100.0); Oxyhemoglobin 92.2 % THb (90.0-100.0); PCO2 ABG 47.2 mmHg (35.0-45.0); PO2 ABG 62.5 mmHg (80.0-100.0); PO2 FiO2 Ratio Arterial Blood 1.95 %; Total Hemoglobin 11.6 g/dL (12.0-18.0); pH ABG 7.429 (7.350-7.450)
[2024-08-13 14:20] VITALS: PULSE 99; O2SAT 87
[2024-08-13 14:22] LABS: Device NASAL CANNULA; Modified Allen's Test Pass; Site Drawn RIGHT RADIAL
[2024-08-13 14:25] VITALS: PULSE 101; O2SAT 91
[2024-08-13 14:35] VITALS: PULSE 80; O2SAT 95
--- OUTSIDE RECORDS SUMMARY | 2024-08-13 14:43 | XMS_ITS | Clinical Summary ---
Author Organization [facility] Address [address] [place] [address] Phone Care Team Providers Care Shiatsu Therapist Name Role Phone Devin Ricardo MD Primary Care Provider Social History Tobacco Use Types Packs/Day Years Used Date Smoking Tobacco: Never Assessed Comments Unknown Sex and Gender Information Value Date Recorded Sex Assigned at Not on file Legal Sex Female 10:47 PM CDT Gender Identity Not on file Sexual Orientation Not on file Plan of Treatment Health Maintenance Due Date Last Done Comments Hepatitis C Virus (HCV) Screening 1970 TdaP Immunization 1970 Hepatitis B Immunization (1 of 3 - 19+ 3-dose series) 1989 Pap Smear 1991 Cervical Cancer Screening (CCS) 02/21/2000 HPV/Cotest 02/21/2000 Colonoscopy 2015 Colorectal Cancer Screening 2015 Cologuard 02/21/2020 Immunochemical Fecal Occult Blood 02/21/2020 Mammogram 02/21/2020 Pneumococcal Immunization (5 0+ years) (1 of 1 - PCV) 02/21/2020 Zoster Immunization (1 of 2) 02/21/2020 Influenza Immunization (#1) 2024 SARS-COV-2 Immunization ( - 2023-25 season) 2024 Respiratory Syncytial Virus (RSV) Immunization (Adult) (1 - 1-dose 75+ series) 2045 Meningococcal Immunization (ACWY) Aged Out No longer eligible based on patient's age to complete this topic Pneumococcal Immunization Combined Aged Out No longer eligible based on patient's age to complete this topic Rotavirus Immunization Aged Out No lo nger eligible based on patient's age to complete this topic Insurance MEDICAID [employer] Care Teams Shiatsu Therapist Relationship Specialty Start Date End Date Devin Ricardo MD [address] [place] [address] [address] [place] [address] PCP - General Family Medicine 02/25/19
--- NOTE | 2024-08-13 15:07 | HOMEO2EVAL ---
Evaluation was performed at [facility] Home Oxygen Evaluation RC: Home Oxygen (O2) Evaluation Start: 08/13/24 15:01 Freq: Status: Active Protocol: RPE Activity Type Activity Date Activity User E-sign Co-sign Detail Recorded Client Recorded Date Recorded By Document 08/13/24 14:00 [email or web address] 08/13/24 15:06 PKH Document 08/13/24 14:10 [email or web address] 08/13/24 15:06 PKH Document 08/13/24 14:15 [email or web address] [email or web address] 08/13/24 15:06 PKH Document 08/13/24 14:20 [email or web address] 08/13/24 15:06 PKH Document 08/13/24 14:25 PK [email or web address] 08/13/24 15:06 PK Document 08/13/24 14:35 PK [email or web address] 08/13/24 15:06 PKH 08/13/24 08/13/24 08/13/24 14:00 14:10 14:15 Home O2 Evaluation [Oxygen] -Test Phase Resting Exercise Exercise -Oxygen Delivery Room Air Room Air Nasal Cannula -Oxygen Flow Rate (L/min) 1 [Pulse Oximetry] -Pulse Oximetry (90-100 %) 94 85 L 86 L [Pulse Rate] -Pulse Rate (60-100 beats/min) 79 102 H 101 H [Evaluation] -Activity Tolerance Good [Charges] -Evaluation Charges O2 Evaluation by Pulmonary 08/13/24 08/13/24 08/13/24 14:20 14:25 14:35 Home O2 Evaluation [Oxygen] -Test Phase Exercise Exercise Resting -Oxygen Delivery Nasal Cannula Nasal Cannula Room Air -Oxygen Flow Rate (L/min) 2 3 [Pulse Oximetry] -Pulse Oximetry (90-100 %) 87 L 91 95 [Pulse Rate] -Pulse Rate (60-100 beats/min) 99 101 H 80 [Evaluation] -Activity Tolerance [Charges] -Evaluation Charges
== END 2024-08-13 13:47 | disposition home or self-care (01) ==
LOC: ANHPFT 13:46
PROVIDERS: PCP Family Medicine; Visit Provider Nurse Practitioner Family
DX: J96.11 Chronic respiratory failure with hypoxia (principal); J96.12 Chronic respiratory failure with hypercapnia
CPT/HCPCS: 36600; 82805; 85018; 94618

== ENCOUNTER 2025-06-08 18:56 | Emergency (ER) | payer MEDICARE, MEDICAID, SELFPAY ==
--- NOTE | ~2025-06-08 | US_ITS ---
EXAMINATION: US pelvic complete w TV INDICATION: Abnormal CT with uterine bleeding Comparison:No prior studies for comparison. TECHNIQUE: Multiple transabdominal and endovaginal sonographic images of the pelvis performed. FINDINGS: The uterus measures 12.7 x 8.1 x 9.3 cm. Endometrium is thickened and heterogeneous. The endometrial complex measures 12. There is nabothian cyst. There is fluid in the cervix. There is a complex cystic mass of the right adnexa measuring 13.2 cm, possibly ovarian versus adnexal. Left ovary is not visualized. There is no free fluid in the pelvis. There are no abnormal masses seen on either side. IMPRESSION: 1. Large complex 13.2 cm right adnexal cystic mass with internal vascularity concerning for ovarian neoplasm including: Epithelial ovarian carcinoma, borderline ovarian tumor, cystadenoma with solid/vascular components and less likely tubo-ovarian abscess. 2: Heterogeneous thickened endometrium measuring 12 mm. Differential diagnosis in clearance endometrial hyperplasia, endometrial polyp and endometrial carcinoma. Recommend gynecologic evaluation. Consider MRI without and with contrast and CA 125 ovarian tumor marker evaluation. Consider endometrial sa mpling. Reviewed, dictated and finalized at location I. [employer]ENTICE IMPRESSION: 1. Large complex 13.2 cm right adnexal cystic mass with internal vascularity co ncerning for ovarian neoplasm including: Epithelial ovarian carcinoma, borderli ne ovarian tumor, cystadenoma with solid/vascular components and less likely tu celestino-ovarian abscess. 2: Heterogeneous thickened endometrium measuring 12 mm. Differential diagnosis in clearance endometrial hyperplasia, endometrial polyp and endometrial carcin joslyn. Recommend gynecologic evaluation. Consider MRI without and with contrast a nd CA 125 ovarian tumor marker evaluation. Consider endometrial sampling.
--- NOTE | ~2025-06-08 | CT_ITS ---
CT abdomen pelvis w con Clinical History: vaginal bleeding . Comparison: 03/09/2021 Technique: Axial images lung bases to symphysis pubis 100 mL Omnipaque 350 Coronal, sagittal reformats CT images acquired with automatic exposure control for dose reduction DLP: 1714 mGy-cm Findings: Lung bases: Mosaic attenuation. Visualized heart and pericardium: Unremarkable. Liver: Steatosis. Cirrhosis. Focal fatty deposition subcapsular segment 4A. Gallbladder: Removed. Spleen: Unremarkable. Pancreas: Unremarkable. Adrenal glands: Unremarkable. Kidneys: Right kidney- No hydronephrosis. No renal stones. Left kidney- No hydronephrosis. No renal stones. Small probable cyst. Distal esophagus/stomach: Unremarkable. Small bowel loops: Normal caliber and wall thickness. Colon: Diverticula. Normal caliber and wall thickness. Normal RLQ appendix. Nodes: No enlarged nodes. Peritoneum: No ascites. No free air. Urinary bladder: Unremarkable. Uterus: Unremarkable. Adnexa: Enlarging cystic focus left side but along central abdomen, now 13 cm. Bones: No acute bony abnormality. Soft tissues: Unremarkable. Aorta: No aneurysm or dissection. IVC: Unremarkable. Main portal vein/SMV/splenic vein: Patent. Splenorenal shunt. IMPRESSION: 1. Enlarging left adnexal cystic lesion, now 13 cm. Recommend transvaginal sonography and/or pelvic MRI. 2. Otherwise no acute abnormality. Reviewed, dictated and finalized at location R. T DEPUTY IMPRESSION: 1. Enlarging left adnexal cystic lesion, now 13 cm. Recommend transvaginal son ography and/or pelvic MRI. 2. Otherwise no acute abnormality.
[2025-06-08 18:57] VITALS: BP 140/106; PULSE 84; RESP 18; TEMP 36.6; O2SAT 98
[2025-06-08 19:43] VITALS: BP 163/91; PULSE 94; RESP 23; O2SAT 95
--- NOTE | 2025-06-08 19:43 | PC.NURSE ---
pt came up to front office medical assistant stating she is SOB and needs oxygen. pt states normally wears 3L O2 with activity. pt states she just went to the bathroom and is SOB. pt placed on 3L NC in triage. pt also requesting blood sugar checked
[2025-06-08 19:44] VITALS: O2SAT 100
[2025-06-08 22:53] VITALS: BP 148/93; PULSE 76; RESP 20; TEMP 36.9; O2SAT 100
[2025-06-09] VITALS (7 sets, daily range): BP systolic 124–160; BP diastolic 67–120; PULSE 80–91; RESP 18–28; O2SAT 94–99
[2025-06-09 01:51] LABS: Hematocrit 33.5 % (37.0-47.0); Hemoglobin 10.4 g/dL (12.0-15.0); Immature Granulocyte Percent A 0.5 % (0-0.5); Lymphocytes Absolute Auto 1.93 K/mm3 (0.9-3.2); Mean Corpuscular HGB Conc 31.0 g/dl (32-36); Mean Corpuscular Hemoglobin 27.5 pg (26-34); Mean Corpuscular Volume 88.6 fl (80-100); Nucleated Red Blood Cells Absolute Auto 0.000 K/mm3 (0.0-0.012); Nucleated Red Blood Cells Perc 0.0 % (0.0-0.2); Platelet Count Result 338 k/mm3 (150-375); Red Blood Count 3.78 M/mm3 (4.2-5.4); White Blood Count 11.0 K/mm3 (4.5-10.0)
[2025-06-09 02:08] LABS: Alanine Aminotransferase 20 U/L (6-35); Albumin Level 4.4 g/dL (3.5-5.1); Alkaline Phosphatase 94 U/L (38-126); Anion Gap 8 mmol/L (4-12); Aspartate Amino Transferase 29 U/L (14-36); Bilirubin,Total 0.4 mg/dL (0.2-1.3); Blood Urea Nitrogen 11 mg/dL (7-17); Calcium 9.2 mg/dL (8.4-10.2); Carbon Dioxide 30 mmol/L (22-30); Chloride 101 mmol/L (98-107); Estimated CRCL calculation 109 ml/min; Estimated Glomerular Filt Rate > 60; Glucose 144 mg/dL (65-110); Potassium 3.8 mmol/L (3.4-5.0); Sodium 139 mmol/L (137-145); Total Protein 7.8 g/dL (6.3-8.2)
[2025-06-09 02:12] LABS: INR 1.0; Prothrombin Time 13.1 Seconds (11.1-14.7)
[2025-06-09 02:13] LABS: Partial Thromboplastin Time 27.8 Seconds (22.3-36.8)
--- NOTE | 2025-06-09 02:32 | ED.FEMALEGU ---
HPI - Female Genitourinary General Chief complaint: Vaginal Bleeding <Akash Banuelos DO - Last Filed: 06/09/25 07:54> Stated complaint: vag bleeding <Akash Banuelos DO - Last Filed: 06/09/25 07:54> Time Seen by Provider: 06/09/25 02:23 <Akash Banuelos DO - Last Filed: 06/09/25 07:54> Source: patient <Akash Banuelos DO - Last Filed: 06/09/25 07:54> Mode of arrival: ambulatory <Akash Banuelos DO - Last Filed: 06/09/25 07:54> Limitations: no limitations <Akash Banuelos DO - Last Filed: 06/09/25 07:54> History of Present Illness HPI Narrative: Patient is a 55-year-old female presents to the emergency department complaining of vaginal bleeding. Patient notes that she has had heavy periods in the past, but she was starting to go into menopause, this seeing a rate reviewer was planning on getting back into the mid than oncoming get checked out because over the past 1 week she has been having vaginal bleeding, CV changing her depends a couple times a day as he be getting better however throughout the day today she has had change in a 5 times within increase in bleeding and clots. Patient denies use of any blood thinners. Patient notes that she has potentially some cirrhosis and is a drinker but did not drink anything today. Patient denies any injuries. Patient admits to some burning discomfort in the vaginal region which she describes as irritation and was put on antibiotic yesterday. Patient denies any chest pain difficulty breathing, loss of consciousness, lightheadedness, palpitations. Patient denies any history of requiring a blood transfusion. Patient denies any melena or hematochezia. <Akash Banuelos DO - Last Filed: 06/09/25 07:54> Related Data Home medications: Home Medications ?Medication ?Instructions ?Recorded ?Confirmed ?Last Taken ?Type insulin regular human 100 unit/mL See Rx Instructions .Route .COMPLEX 03/16/21 03/25/25 03/15/21 History injection solution (Humulin R Regular U-100 Insulin) multivitamin with iron-mineral 1 tablet PO DAILY 03/16/21 03/25/25 03/12/21 History Saccharomyces boulardii 250 mg 250 mg PO BID 08/29/23 03/25/25 Unknown History capsule (Daily Probiotic (S. boulardii)) ascorbate calcium (vitamin C) 500 500 mg PO DAILY 08/29/23 03/25/25 Unknown History mg tablet cholecalciferol (vitamin D3) 10 10 mcg PO DAILY 08/29/23 03/25/25 Unknown History mcg (400 unit) capsule zinc glycinate 20 mg capsule 20 mg PO DAILY 08/29/23 03/25/25 Unknown History <Akash Banuelos DO - Last Filed: 06/09/25 07:54> Allergies/Adverse reactions: Allergies Allergy/AdvReac Type Severity Reaction Status Date / Time cigarette smoke Allergy Mild Cough Verified 06/08/25 19:02 morphine Allergy Unknown Verified 06/08/25 19:02 Sulfa (Sulfonamide Allergy Unknown Verified 06/08/25 19:02 Antibiotics) <Akash Banuelos DO - Last Filed: 06/09/25 07:54> Review of Systems Review of Systems: A 10 system review of systems was completed on the patient and is negative except for what is stated in the HPI. Nursing and ancillary documentation was reviewed. <Akash Banuelos, - Last Filed: 06/09/25 07:54> [facility] Past Medical History Medical History: Medical History Chronic respiratory failure On 2 L nasal cannula with activity. Gallstone pancreatitis (03/2021) Diastolic dysfunction Grade 1 diastolic dysfunction on echocardiogram dated 06/04/2020. Obstructive sleep apnea CHF (congestive heart failure) Type 2 diabetes mellitus (~06/03/20) Hemoglobin A1c was 7.4% on 06/03/2020. Morbid obesity Asthma <Akash Banuelos DO - Last Filed: 06/09/25 07:54> Surgical History Surgical History: Surgical History Hx laparoscopic cholecystectomy 03/16/21 Laparoscopic cholecystectomy with intraoperative cholangiogram History of laparoscopic cholecystectomy (03/16/21) History of ankle surgery (~2001) Right ankle ORIF with subsequent hardware removal. She tells me that she has only had a couple those screws removed and still has a plate in about 9 screws left in that right ankle. History of section (~1987) History of tonsillectomy (~1977) <Akash Banuelos DO - Last Filed: 06/09/25 07:54> Family History Family History: Family History Father Heart disease Diabetes mellitus <Akash Banuelos DO - Last Filed: 06/09/25 07:54> Social History Social History: Social History Social History: The patient lives in [place] with her spouse and their 2 adult children, 1 daughter and 1 son. 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 No alcohol or illicit substance abuse. She designates her , Salvatore Prasad, as her surrogate decision maker and she wishes to be a full code. Smoking status: Former smoker Lack of Transportation: No Current Housing: I Have Housing Concerned About Future Housing: No Difficulty Paying Gas/Electric Bills: YES Difficulty Paying for Meds: No Currently Unemployed: No Education: High School Diploma/GED Difficulty w/ Childcare or Family Care: No Living arrangements: with family <Akash Banuelos DO - Last Filed: 06/09/25 07:54> Exam Narrative: CONST: No acute distress. Well nourished. HENMT: Head is normocephalic and atraumatic. Moist mucous membranes. No posterior oropharynx erythema. EYES: No scleral icterus. No conjunctival injection or pallor. PERRL. NECK: No meningeal signs. RESP: Able to speak in full sentences. Normal respiratory effort. CTAB. CARDIO: Regular rate. Regular rhythm. 2+ DP and radial pulses bilaterally. GI: Nondistended. No tenderness to palpation. Soft. : No CVA tenderness to palpation. Pelvic examination performed with female nurse pleating supervisor present at bedside, there is scant dry blood in the vaginal vault, for scant dark red blood oozing from the cervix, no obvious cervical mass or polyp. The tissue was the vulva is erythematous, appears macerated tissue. SKIN: No rashes or lesions noted on exposed skin. NEURO: Oriented x3. Moves all extremities. EXTREM/MSK/BACK: No pedal edema. PSYCH: Normal affect. <Akash Banuelos DO - Last Filed: 06/09/25 07:54> Course Vital Signs Vital signs: Vital Signs Temperature 97.8 F 06/08/25 18:57 Pulse Rate 84 06/08/25 18:57 Respiratory Rate 18 06/08/25 18:57 Blood Pressure 140/106 H 06/08/25 18:57 Pulse Oximetry 98 06/08/25 18:57 Oxygen Delivery Room Air 06/08/25 18:57 Temperature 98.4 F 06/08/25 22:53 Pulse Rate 81 06/09/25 10:11 Respiratory Rate 21 H 06/09/25 10:11 Blood Pressure 137/67 06/09/25 10:11 Pulse Oximetry 97 06/09/25 10:11 Oxygen Delivery Nasal Cannula 06/08/25 19:44 Oxygen Flow Rate 3 06/08/25 19:44 <Akash Banuelos DO - Last Filed: 06/09/25 07:54> Vital Signs Temperature 97.8 F 06/08/25 18:57 Pulse Rate 84 06/08/25 18:57 Respiratory Rate 18 06/08/25 18:57 Blood Pressure 140/106 H 06/08/25 18:57 Pulse Oximetry 98 06/08/25 18:57 Oxygen Delivery Room Air 06/08/25 18:57 Temperature 98.4 F 06/08/25 22:53 Pulse Rate 81 06/09/25 10:11 Respiratory Rate 21 H 06/09/25 10:11 Blood Pressure 137/67 06/09/25 10:11 Pulse Oximetry 97 06/09/25 10:11 Oxygen Delivery Nasal Cannula 06/08/25 19:44 Oxygen Flow Rate 3 06/08/25 19:44 <Chantell Snyder MD - Last Filed: 06/09/25 11:03> MDM MDM Narrative Medical decision making narrative: Patient presents with the above complaint. Initial vitals are remarkable for no significant abnormalities. Physical examination as noted above. Plan discussed: laboratory analysis, imaging, pelvic exam. Serial hemoglobins are stable. Patient ambulatory appearing in no acute distress. Patient notes the vaginal bleeding has significantly decreased. Vital signs stable. Patient signed out to oncoming physician pending CT. <Akash Banuelos DO - Last Filed: 06/09/25 07:54> Patient presents with the above complaint. Initial vitals are remarkable for no significant abnormalities. Physical examination as noted above. Plan discussed: laboratory analysis, imaging, pelvic exam. Serial hemoglobins are stable. Patient ambulatory appearing in no acute distress. Patient notes the vaginal bleeding has significantly decreased. Vital signs stable. Patient signed out to oncoming physician pending CT. // Imaging unfortunately quite concerning for ovarian malignancy. I have discussed this with the patient. I have discussed this and lab findings with OBGYN, who would like to have a CA 125 ordered, and he will see her in the clinic for further evaluation and workup. Return precautions provided. <Chantell Snyder MD - Last Filed: 06/09/25 11:03> Differential Diagnosis Differential Diagnosis: Cancer, dysfunctional uterine bleeding, UTI, bleeding dyscrasia, polyp, fibroids. <Akash Banuelos DO - Last Filed: 06/09/25 07:54> Lab Data MDM Lab Attestation statement: I personally reviewed the patient's lab results. <Akash Banuelos DO - Last Filed: 06/09/25 07:54> Lab results narrative: CBC reveals a white blood cell count of 11.0, hemoglobin 10.4. Coags are without any significant abnormalities. Comprehensive metabolic panel is without any significant abnormalities. Repeat hemoglobin is 9.4. TSH is 3.480. HCG testing is negative. Magnesium is 2.1. Lactic acid is 0.9. Urinalysis reveals 1+ protein, trace ketones, 3+ blood, trace leukocytes, 11-20 WBCs, greater than 100 RBCs, rare bacteria. <Akash Baunelos DO - Last Filed: 06/09/25 07:54> Result diagrams: 06/09/25 05:50 06/09/25 01:40 <Akash Banuelos DO - Last Filed: 06/09/25 07:54> Labs: Lab Results 06/08/25 06/09/25 06/09/25 Range/Units 19:48 01:40 03:00 WBC 11.0 H (4.5-10.0) K/mm3 RBC 3.78 L (4.2-5.4) M/mm3 Hgb 10.4 L 9.4 L (12.0-15.0) g/dL Hct 33.5 L 29.6 L (37.0-47.0) % MCV 88.6 (80-100) fl MCH 27.5 (26-34) pg MCHC 31.0 L (32-36) g/dl RDW 15.2 H (11.5-14.5) % Plt Count 338 (150-375) k/mm3 MPV 9.1 (7.4-10.4) fl Immature Gran % (Auto) 0.5 (0-0.5) % Neut % (Auto) 69.7 (45.5-73.1) % Lymph % (Auto) 17.5 L (18.3-44.2) % [place] % (Auto) 7.3 (2.6-8.5) % Eos % (Auto) 4.5 H (0-4.4) % Baso % (Auto) 0.5 (0.2-1.2) % Lymph # (Auto) 1.93 (0.9-3.2) K/mm3 [place] # (Auto) 0.8 H (0.1-0.6) K/mm3 Eos # (Auto) 0.5 H (0-0.3) K/mm3 Baso # (Auto) 0.1 (0.0-0.1) K/mm3 Abs Immat Gran (auto) 0.05 H (0.00-0.031) K/mm3 Absolute Neuts (auto) 7.7 H (1.3-6.7) K/mm3 Absolute Nucleated RBC 0.000 (0.0-0.012) K/mm3 Nucleated RBC % 0.0 (0.0-0.2) % PT 13.1 (11.1-14.7) Seconds INR 1.0 APTT 27.8 (22.3-36.8) Seconds Sodium 139 (137-145) mmol/L Potassium 3.8 (3.4-5.0) mmol/L Chloride 101 (98-107) mmol/L Carbon Dioxide 30 (22-30) mmol/L Anion Gap 8 (4-12) mmol/L BUN 11 (7-17) mg/dL Creatinine 0.69 L (0.7-1.0) mg/dL Estim Creat Clear Calc 109 ml/min Estimated GFR > 60 (59 - ) Glucose 144 H (65-110) mg/dL POC Capillary Glucose 118 H (65-105) mg/dl Lactic Acid 0.9 (0.7-2.0) mmol/L Calcium 9.2 (8.4-10.2) mg/dL Magnesium 2.1 (1.6-2.3) mg/dL Total Bilirubin 0.4 (0.2-1.3) mg/dL AST 29 (14-36) U/L ALT 20 (6-35) U/L Alkaline Phosphatase 94 (38-126) U/L Total Protein 7.8 (6.3-8.2) g/dL Albumin 4.4 (3.5-5.1) g/dL TSH (Reflex) 3.480 (0.465-4.68) uIU/mL Serum HCG, Qual Negative Urine Color Dark yellow (Yellow) Urine Appearance Turbid H (Clear) Urine pH 5.0 (5.0-9.0) Ur Specific Marshall 1.029 (1.001-1.035) Urine Protein 1+ H (Negative) mg/dL Urine Glucose (UA) Negative (Negative) mg/dL Urine Ketones Trace H (Negative) mg/dL Ur Blood (Man) 3+ H (Negative) Urine Nitrate Negative (Negative) Urine Bilirubin Negative (Negative) Urine Urobilinogen 1.0 (<2.0) mg/dL Leukocyte Esterase Rfl Trace H (Negative) JOHN/UL Urine RBC >100 H (0-2) /hpf Urine WBC 11-20 H (0-3) /hpf Ur Squamous Epith Cells Occasional (Few) /hpf Urine Bacteria Rare /hpf Urine Casts 0-2 Blood Type O Positive Antibody Screen Negative 06/09/25 Range/Units 05:50 WBC (4.5-10.0) K/mm3 RBC (4.2-5.4) M/mm3 Hgb 9.8 L (12.0-15.0) g/dL Hct 31.3 L (37.0-47.0) % MCV (80-100) fl MCH (26-34) pg MCHC (32-36) g/dl RDW (11.5-14.5) % Plt Count (150-375) k/mm3 MPV (7.4-10.4) fl Immature Gran % (Auto) (0-0.5) % Neut % (Auto) (45.5-73.1) % Lymph % (Auto) (18.3-44.2) % [place] % (Auto) (2.6-8.5) % Eos % (Auto) (0-4.4) % Baso % (Auto) (0.2-1.2) % Lymph # (Auto) (0.9-3.2) K/mm3 [place] # (Auto) (0.1-0.6) K/mm3 Eos # (Auto) (0-0.3) K/mm3 Baso # (Auto) (0.0-0.1) K/mm3 Abs Immat Gran (auto) (0.00-0.031) K/mm3 Absolute Neuts (auto) (1.3-6.7) K/mm3 Absolute Nucleated RBC (0.0-0.012) K/mm3 Nucleated RBC % (0.0-0.2) % PT (11.1-14.7) Seconds INR APTT (22.3-36.8) Seconds Sodium (137-145) mmol/L Potassium (3.4-5.0) mmol/L Chloride (98-107) mmol/L Carbon Dioxide (22-30) mmol/L Anion Gap (4-12) mmol/L BUN (7-17) mg/dL Creatinine (0.7-1.0) mg/dL Estim Creat Clear Calc ml/min Estimated GFR (59 - ) Glucose (65-110) mg/dL POC Capillary Glucose (65-105) mg/dl Lactic Acid (0.7-2.0) mmol/L Calcium (8.4-10.2) mg/dL Magnesium (1.6-2.3) mg/dL Total Bilirubin (0.2-1.3) mg/dL AST (14-36) U/L ALT (6-35) U/L Alkaline Phosphatase (38-126) U/L Total Protein (6.3-8.2) g/dL Albumin (3.5-5.1) g/dL TSH (Reflex) (0.465-4.68) uIU/mL Serum HCG, Qual Urine Color (Yellow) Urine Appearance (Clear) Urine pH (5.0-9.0) Ur Specific Marshall (1.001-1.035) Urine Protein (Negative) mg/dL Urine Glucose (UA) (Negative) mg/dL Urine Ketones (Negative) mg/dL Ur Blood (Man) (Negative) Urine Nitrate (Negative) Urine Bilirubin (Negative) Urine Urobilinogen (<2.0) mg/dL Leukocyte Esterase Rfl (Negative) JOHN/UL Urine RBC (0-2) /hpf Urine WBC (0-3) /hpf Ur Squamous Epith Cells (Few) /hpf Urine Bacteria /hpf Urine Casts Blood Type Antibody Screen <Akash Banuelos, DO - Last Filed: 06/09/25 07:54> Lab Results 06/08/25 06/09/25 06/09/25 Range/Units 19:48 01:40 03:00 WBC 11.0 H (4.5-10.0) K/mm3 RBC 3.78 L (4.2-5.4) M/mm3 Hgb 10.4 L 9.4 L (12.0-15.0) g/dL Hct 33.5 L 29.6 L (37.0-47.0) % MCV 88.6 (80-100) fl MCH 27.5 (26-34) pg MCHC 31.0 L (32-36) g/dl RDW 15.2 H (11.5-14.5) % Plt Count 338 (150-375) k/mm3 MPV 9.1 (7.4-10.4) fl Immature Gran % (Auto) 0.5 (0-0.5) % Neut % (Auto) 69.7 (45.5-73.1) % Lymph % (Auto) 17.5 L (18.3-44.2) % [place] % (Auto) 7.3 (2.6-8.5) % Eos % (Auto) 4.5 H (0-4.4) % Baso % (Auto) 0.5 (0.2-1.2) % Lymph # (Auto) 1.93 (0.9-3.2) K/mm3 [place] # (Auto) 0.8 H (0.1-0.6) K/mm3 Eos # (Auto) 0.5 H (0-0.3) K/mm3 Baso # (Auto) 0.1 (0.0-0.1) K/mm3 Abs Immat Gran (auto) 0.05 H (0.00-0.031) K/mm3 Absolute Neuts (auto) 7.7 H (1.3-6.7) K/mm3 Absolute Nucleated RBC 0.000 (0.0-0.012) K/mm3 Nucleated RBC % 0.0 (0.0-0.2) % PT 13.1 (11.1-14.7) Seconds INR 1.0 APTT 27.8 (22.3-36.8) Seconds Sodium 139 (137-145) mmol/L Potassium 3.8 (3.4-5.0) mmol/L Chloride 101 (98-107) mmol/L Carbon Dioxide 30 (22-30) mmol/L Anion Gap 8 (4-12) mmol/L BUN 11 (7-17) mg/dL Creatinine 0.69 L (0.7-1.0) mg/dL Estim Creat Clear Calc 109 ml/min Estimated GFR > 60 (59 - ) Glucose 144 H (65-110) mg/dL POC Capillary Glucose 118 H (65-105) mg/dl Lactic Acid 0.9 (0.7-2.0) mmol/L Calcium 9.2 (8.4-10.2) mg/dL Magnesium 2.1 (1.6-2.3) mg/dL Total Bilirubin 0.4 (0.2-1.3) mg/dL AST 29 (14-36) U/L ALT 20 (6-35) U/L Alkaline Phosphatase 94 (38-126) U/L Total Protein 7.8 (6.3-8.2) g/dL Albumin 4.4 (3.5-5.1) g/dL TSH (Reflex) 3.480 (0.465-4.68) uIU/mL Serum HCG, Qual Negative Urine Color Dark yellow (Yellow) Urine Appearance Turbid H (Clear) Urine pH 5.0 (5.0-9.0) Ur Specific [place] 1.029 (1.001-1.035) Urine Protein 1+ H (Negative) mg/dL Urine Glucose (UA) Negative (Negative) mg/dL Urine Ketones Trace H (Negative) mg/dL Ur Blood (Man) 3+ H (Negative) Urine Nitrate Negative (Negative) Urine Bilirubin Negative (Negative) Urine Urobilinogen 1.0 (<2.0) mg/dL Leukocyte Esterase Rfl Trace H (Negative) JOHN/UL Urine RBC >100 H (0-2) /hpf Urine WBC 11-20 H (0-3) /hpf Ur Squamous Epith Cells Occasional (Few) /hpf Urine Bacteria Rare /hpf Urine Casts 0-2 Blood Type O Positive Antibody Screen Negative 06/09/25 Range/Units 05:50 WBC (4.5-10.0) K/mm3 RBC (4.2-5.4) M/mm3 Hgb 9.8 L (12.0-15.0) g/dL Hct 31.3 L (37.0-47.0) % MCV (80-100) fl MCH (26-34) pg MCHC (32-36) g/dl RDW (11.5-14.5) % Plt Count (150-375) k/mm3 MPV (7.4-10.4) fl Immature Gran % (Auto) (0-0.5) % Neut % (Auto) (45.5-73.1) % Lymph % (Auto) (18.3-44.2) % [place] % (Auto) (2.6-8.5) % Eos % (Auto) (0-4.4) % Baso % (Auto) (0.2-1.2) % Lymph # (Auto) (0.9-3.2) K/mm3 [place] # (Auto) (0.1-0.6) K/mm3 Eos # (Auto) (0-0.3) K/mm3 Baso # (Auto) (0.0-0.1) K/mm3 Abs Immat Gran (auto) (0.00-0.031) K/mm3 Absolute Neuts (auto) (1.3-6.7) K/mm3 Absolute Nucleated RBC (0.0-0.012) K/mm3 Nucleated RBC % (0.0-0.2) % PT (11.1-14.7) Seconds INR APTT (22.3-36.8) Seconds Sodium (137-145) mmol/L Potassium (3.4-5.0) mmol/L Chloride (98-107) mmol/L Carbon Dioxide (22-30) mmol/L Anion Gap (4-12) mmol/L BUN (7-17) mg/dL Creatinine (0.7-1.0) mg/dL Estim Creat Clear Calc ml/min Estimated GFR (59 - ) Glucose (65-110) mg/dL POC Capillary Glucose (65-105) mg/dl Lactic Acid (0.7-2.0) mmol/L Calcium (8.4-10.2) mg/dL Magnesium (1.6-2.3) mg/dL Total Bilirubin (0.2-1.3) mg/dL AST (14-36) U/L ALT (6-35) U/L Alkaline Phosphatase (38-126) U/L Total Protein (6.3-8.2) g/dL Albumin (3.5-5.1) g/dL TSH (Reflex) (0.465-4.68) uIU/mL Serum HCG, Qual Urine Color (Yellow) Urine Appearance (Clear) Urine pH (5.0-9.0) Ur Specific Marshall (1.001-1.035) Urine Protein (Negative) mg/dL Urine Glucose (UA) (Negative) mg/dL Urine Ketones (Negative) mg/dL Ur Blood (Man) (Negative) Urine Nitrate (Negative) Urine Bilirubin (Negative) Urine Urobilinogen (<2.0) mg/dL Leukocyte Esterase Rfl (Negative) JOHN/UL Urine RBC (0-2) /hpf Urine WBC (0-3) /hpf Ur Squamous Epith Cells (Few) /hpf Urine Bacteria /hpf Urine Casts Blood Type Antibody Screen <Chantell Snyder MD - Last Filed: 06/09/25 11:03> Imaging Data Radiologist's impression: ITS Impressions Abdomen/Pelvis CT 06/09/25 07:38 IMPRESSION: 1. Enlarging left adnexal cystic lesion, now 13 cm. Recommend transvaginal sonography and/or pelvic MRI. 2. Otherwise no acute abnormality. Pelvic/Transvag US 06/09/25 10:13 IMPRESSION: 1. Large complex 13.2 cm right adnexal cystic mass with internal vascularity concerning for ovarian neoplasm including: Epithelial ovarian carcinoma, borderline ovarian tumor, cystadenoma with solid/vascular components and less likely tubo-ovarian abscess. 2: Heterogeneous thickened endometrium measuring 12 mm. Differential diagnosis in clearance endometrial hyperplasia, endometrial polyp and endometrial carcinoma. Recommend gynecologic evaluation. Consider MRI without and with contrast and CA 125 ovarian tumor marker evaluation. Consider endometrial sampling. <Akash Banuelos DO - Last Filed: 06/09/25 07:54> ITS Impressions Abdomen/Pelvis CT 06/09/25 07:38 IMPRESSION: 1. Enlarging left adnexal cystic lesion, now 13 cm. Recommend transvaginal sonography and/or pelvic MRI. 2. Otherwise no acute abnormality. Pelvic/Transvag US 06/09/25 10:13 IMPRESSION: 1. Large complex 13.2 cm right adnexal cystic mass with internal vascularity concerning for ovarian neoplasm including: Epithelial ovarian carcinoma, borderline ovarian tumor, cystadenoma with solid/vascular components and less likely tubo-ovarian abscess. 2: Heterogeneous thickened endometrium measuring 12 mm. Differential diagnosis in clearance endometrial hyperplasia, endometrial polyp and endometrial carcinoma. Recommend gynecologic evaluation. Consider MRI without and with contrast and CA 125 ovarian tumor marker evaluation. Consider endometrial sampling. <Chantell Snyder MD - Last Filed: 06/09/25 11:03> Discharge Plan Discharge Clinical Impression: Vulvovaginal pain, Maceration of skin, DUB (dysfunctional uterine bleeding), Anemia, UTI (urinary tract infection), Mass of ovary Cellulitis Qualifiers: Site of cellulitis: unspecified site Qualified Code(s): L03.90 - Cellulitis, unspecified <Akash Banuelos DO - Last Filed: 06/09/25 07:54> Patient Disposition: Home <Akash Banuelos DO - Last Filed: 06/09/25 07:54> Condition: Stable <Akash Banuelos DO - Last Filed: 06/09/25 07:54> Instructions: Antibiotic Form, Abnormal (Dysfunctional) Uterine Bleeding (ED), Urinary Tract Infection in Women (ED), Cellulitis (ED), Anemia (ED) <Akash Banuelos DO - Last Filed: 06/09/25 07:54> Additional Instructions: Keep the vagina region as dry as possible, you can apply the nystatin powder as prescribed, take the Keflex as prescribed to completion, rest and stay well hydrated. Follow-up with Gynecology in the next few days for reassessment as you will likely need a biopsy of the ovarian lesion to rule out cancer, and please also follow-up with your primary care physician in the next few days for reassessment. Return immediately to the emergency department for any new or concerning symptoms especially fever, if anything that might mild, rapidly spreading redness, vaginal bleeding to the severity of saturating through more than 1 pad per hour for more than 1 hour, chest pain, difficulty breathing, or any emergent concerns for life, limb, eyesight. <Akash Banuelos, - Last Filed: 06/09/25 07:54> Patient Language: Burkinan <Akash Banuelos, - Last Filed: 06/09/25 07:54> Prescriptions: New nystatin 100,000 unit/gram powder 1 applic topical TID Qty: 60 0RF cephalexin 500 mg capsule 500 mg PO Q6H 7 Days Qty: 28 0RF acetaminophen 500 mg tablet 500 mg PO Q6H PRN (Reason: pain) Qty: 30 0RF No Action zinc glycinate 20 mg capsule 20 mg PO DAILY ascorbate calcium (vitamin C) 500 mg tablet 500 mg PO DAILY cholecalciferol (vitamin D3) 10 mcg (400 unit) capsule 10 mcg PO DAILY Saccharomyces boulardii [Daily Probiotic (S. boulardii)] 250 mg capsule 250 mg PO BID ipratropium-albuterol 0.5 mg-3 mg(2.5 mg base)/3 mL solution for nebulization 3 ml inhalation QID PRN (Reason: shortness of breath or wheezing) Qty: 360 2RF albuterol sulfate 90 mcg/actuation HFA aerosol inhaler 1 inh INHALATION Q4-6H PRN (Reason: Shortness Of Breath) Qty: 18 2RF multivitamin with iron-mineral Tablet 1 tablet PO DAILY Humulin R Regular U-100 Insuln 100 unit/mL solution See Rx Instructions .ROUTE .COMPLEX Rx Instructions: sliding scale budesonide-formoterol [Symbicort] 160-4.5 mcg/actuation HFA aerosol inhaler See Rx Instructions .ROUTE .COMPLEX 5RF Dose Instruction: USE 2 PUFFS BY MOUTH EVERY 12 HOURS, RINSE AND SPIT AFTER USE Rx Instructions: USE 2 PUFFS BY MOUTH EVERY 12 HOURS, RINSE AND SPIT AFTER USE <Akash Banuelos DO - Last Filed: 06/09/25 07:54> Follow-up/Referrals: Davion,Devin Montaño MD [Primary Care Provider] - 2 Days David Avila MD [Physician, MEDIA SPECIALIST] - 2 Days <Akash Banuelos, - Last Filed: 06/09/25 07:54>
[2025-06-09 03:02] LABS: Magnesium 2.1 mg/dL (1.6-2.3)
[2025-06-09 03:11] LABS: SPREG INTERNAL CONTROL Positive; Serum Qual hCG Negative
[2025-06-09 03:17] LABS: Hematocrit 29.6 % (37.0-47.0); Hemoglobin 9.4 g/dL (12.0-15.0)
[2025-06-09 03:19] LABS: Add Urine Microscopic? YES; Appearance Urine Turbid (Clear); Glucose Urine UA Negative (Negative); Leukocyte Esterase Ur Trace LEU/UL (Negative); Nitrate Urine Negative (Negative); Non Pathogenic Casts 0-2; Specific Grav Ur 1.029 (1.001-1.035)
[2025-06-09 03:34] LABS: Thyroid Stimulating Hormone Reflex 3.480 uIU/mL (0.465-4.68)
[2025-06-09 07:03] LABS: Hematocrit 31.3 % (37.0-47.0); Hemoglobin 9.8 g/dL (12.0-15.0)
[2025-06-09] MEDS: NYSTATIN OINTMENT 15 GM TUBE 1 APPLIC TOPICAL (07:12)
[2025-06-09] MEDS: CEPHALEXIN 500 MG CAPSULE PO (07:40)
[2025-06-09] MEDS: FLUCONAZOLE 150 MG TABLET PO (11:22)
== END 2025-06-09 12:00 | disposition home or self-care (01) ==
PROVIDERS: Physician Assistant; Student in an Organized Health Care Education/Training Program; Emergency Provider Emergency Medicine; PCP Family Medicine
DX: N93.8 Other specified abnormal uterine and vaginal bleeding (principal); N83.209 Unspecified ovarian cyst, unspecified side; N76.2 Acute vulvitis; N39.0 Urinary tract infection, site not specified; D64.9 Anemia, unspecified; J96.10 Chronic respiratory failure, unspecified whether with hypoxia or hypercapnia; Z99.81 Dependence on supplemental oxygen; J45.909 Unspecified asthma, uncomplicated; I50.9 Heart failure, unspecified; I51.89 Other ill-defined heart diseases; E11.9 Type 2 diabetes mellitus without complications; E66.01 Morbid (severe) obesity due to excess calories; Z68.43 Body mass index [BMI] 50.0-59.9, adult; G47.33 Obstructive sleep apnea (adult) (pediatric); Z87.891 Personal history of nicotine dependence; Z90.49 Acquired absence of other specified parts of digestive tract; Z79.4 Long term (current) use of insulin
CPT/HCPCS: 36415; 74177; 76830; 76856; 80053; 81001; 82948; 83605; 83735; 84443; 84703; 85014; 85018; 85025; 85610; 85730; 86304; 86850; 86900; 86901; 87086; 99284; A9270; Q9967